=== PATIENT | male | born 1960 | race Caucasian/White ===

== ENCOUNTER 2022-10-02 10:57 | Outpatient (CLI) | payer MEDICAID, SELFPAY | END 2022-10-02 10:58 | disposition home or self-care (01) | LOC: LONREF 10:59 | PROVIDERS: PCP Family Medicine; Visit Provider Family Medicine | DX: E03.9 Hypothyroidism, unspecified (principal) | CPT/HCPCS: 84443 ==

== ENCOUNTER 2023-07-05 07:35 | Outpatient (CLI) | payer MEDICAID, SELFPAY | END 2023-07-05 07:36 | disposition home or self-care (01) | LOC: AMB 07-16 06:35 | PROVIDERS: PCP Family Medicine; Visit Provider Family Medicine | DX: R07.89 Other chest pain (principal) | CPT/HCPCS: A0425; A0427 ==

== ENCOUNTER 2024-03-07 12:08 | Outpatient (CLI) | payer MEDICAID, SELFPAY ==
--- OUTSIDE RECORDS SUMMARY | 2024-03-07 12:12 | XMS_ITS ---
Author Name Unknown Organization [facility] Address [address] [place] [id number] Care Team Providers Care Robotics Specialist Name Role Phone Clinic, [facility] Primary Care Provider Transitional Care Management Status:Enrolled (Active) Start date:03/04/2024 Enrollment date:03/04/2024 Continued Care and Services Coordination
--- OUTSIDE RECORDS SUMMARY | 2024-03-07 12:12 | XMS_ITS | Clinical Summary ---
Author Name Unknown Organization [facility] Address [address] [place] [id number] Care Team Providers Care Outside Solar Sales Consultant Name Role Phone Doctor, No Primary Care Provider Unavailabl e Clinic, No Primary Unavailable Unavailable Social History Tobacco Use Types Packs/Day Years Used Date Smoking Tobacco: Never Assessed Sex and Gender Information Value Date Recorded Sex Assigned at Not on file Gender Identity Not on file Sexual Orientation Not on file Plan of Treatment Health Maintenance Due Date Last Done Comments Colonoscopy 1962 Hepatitis C Screening 1962 Lipid Screening 1962 Anxiety Screening (ZACK-2) 1963 Depression Assessment (PHQ-2) 1963 Yearly Review of HCD 2012 Zoster Vaccine (1 of 2) 2012 Adult Tetanus Booster 05/20/2022 05/20/2012 RSV 60+ Yrs (1 - 1-dose 60+ series) 2022 COVID-19 Vaccine ( season) 2023 Influenza Vaccine (Season Ended) 2024 08/16/2020, 08/16/2020, 09/03/2019, Additional history exists Pneumococcal <65 Aged Out 08/15/2017, 05/07/2012 N o longer eligible based on patient's age to complete this topic Care Teams Outside Solar Sales Consultant Relationship Specialty Start Date End Date Doctor, No No ad PCP - General Radiology 11/01/21 Clinic, No Primary PCP - Primary Care Clinic 11/01/21
--- OUTSIDE RECORDS SUMMARY | 2024-03-07 12:12 | XMS_ITS | Encounter Summary ---
Author Name Unknown Organization [facility] Address [facility] [place] [address] Care Team Providers Care Help Desk Specialist Name Role Phone [facility], [facility] Primary Care Provider Reason for Visit * Reason Onset Date Comments Call Back 08/13/2023 Encounter Details Date Type Department Care Team ([facility] st Contact Info) Description 08/13/2023 [facility] [address] [id number] None Call Back Social History Tobacco Use Types Packs/Day Years Used Date Smoking Tobacco: Every Day Cigarettes 1 25 Alcohol Use Standard Drinks/Week Comments Yes 25 (1 standard drink = 0.6 oz pu re alcohol) 2-3 drinks a day Adolescent Education Answer Date Record ed Getting School Help Needed Not on file 07/20 Sex and Gender Information Value Date Recorded Sex Assigned at Not on file Gender Identity Not on file Sexual Orientation Not on file documented as of this encounter Miscellaneous Notes * Telephone Encounter - Esha Palacios - 08/13/2023 1:36 PM CDT [facility] Call [facility] Phone Message May a detailed message be left on voicemail: yes Reason for Call: Appointment Intake Referring Provider Name: JOAN WHELAN Diagnosis and/or Symptoms: ARDS survivorship, hx or HCAP, underling COPD, AURA, suspected OSH - Patient has 2 referrals. Both for Pulm, was seen in Hospital. Unsure how to schedule both with same provider and Not sure what ARDS is. Action Taken: Other: Pulm Travel Screening: Not Applicable documented in this encounter Plan of Treatment Not on file documented as of this encounter Visit Diagnoses Not on filedocumented in this encounter Additional Health Concerns Infection Onset Date Last Indicated Resolved Time Rule Out COVID-19 02/26/2024 02/26/2024 02/26/2024 2:06 PM CDT documented as of this encounter Care Teams Help Desk Specialist Relationship Specialty Start Date End Date [facility], [address] [address] PCP - General 03/28/17 documented as of this encounter
--- OUTSIDE RECORDS SUMMARY | 2024-03-07 12:12 | XMS_ITS | Referral Summary ---
Author Name Unknown Organization Felda Address [facility] [place] [address] Care Team Providers Care Hog Operator Name Role Phone [facility], [facility] Primary Care Provider Encounters Date Type Department Care Team Description 02/26/2024 1:00 PM CDT - 03/03/2024 1:55 PM CDT Hospital Encounter [place] [address] [facility] [address] [place] [id number] Howard Rankin MD Walker, MD Go Colon, Janee Lira MD Diuretic-induced hypokalemia (Primary Dx); Dyspnea, unspecified type; Hypoxia; COPD with acute exacerbation (H) Discharge Disposition: Home or Self Care 02/26/2024 Travel from Last 3 Months Allergies Active Allergy Reactions Criticality Noted Date Comments Cefazolin Rash High 07/14/2023 Skin sloughed off. Medications Medication Sig Dispensed Refills Start Date End Date Status levothyroxine (SYNTHROID, LEVOTHROID) 50 MCG tabletIndications: Hypothyroidism Take 1 tablet by mouth every morning (before breakfast). 90 tablet 0 05/09/2012 Active terazosin (HYTRIN) 2 MG capsule Take 2 mg by mouth At Bedtime Active gabapentin (NEURONTIN) 300 MG capsule Take 300 mg by mouth At Bedtime Active aspirin 81 MG EC tablet Take 81 mg by mouth daily Active vitamin D3 (CHOLECALCIFEROL) 50 mcg (2000 units) tablet Take 1 tablet by mouth daily Active albuterol (PROAIR HFA/PROVENTIL HFA/VENTOLIN HFA) 108 (90 Base) MCG/ACT inhalerIndications :Chronic obstructive pulmonary disease, unspecified COPD type (H) Inhale 6 puffs into the lungs every 2 hours as needed for wheezing 18 g 08/08/2023 Active sennosides (SENOKOT) 8.6 MG tabletIndications: Constipation, unspecified constipation type Take 1 tablet by mouth daily as needed for constipation 08/12/2023 Active tiotropium (SPIRIVA RESPIMAT) 2.5 MCG/ACT inhaler Inhale 1 puff into the lungs daily Active acetaminophen (TYLENOL) 325 MG tablet Take 325 mg by mouth daily Active predniSONE (DELTASONE) 20 MG tabletIndications: COPD with acute exacerbation (H) Take 2 tablets (40 mg) by mouth daily for 2 days, THEN 1.5 tablets (30 mg) daily for 3 days, THEN 1 tablet (20 mg) daily for 3 days, THEN 0.5 tablets (10 mg) daily for 3 days. 13 tablet 03/03/2024 4 Active furosemide (LASIX) 20 MG tabletIndications: COPD with acute exacerbation (H) Take 2 tablets (40 mg) by mouth daily for 7 days 14 tablet 03/03/2024 4 Active potassium chloride wilber ER (KLOR-CON M20) 20 MEQ CR tabletIndications: Diuretic-induced hypokalemia Take 1 tablet (20 mEq) by mouth daily 7 tablet 03/03/2024 Active torsemide (DEMADEX) 20 MG tabletIndications: Edema of both legs,Hypertension, unspecified type Take 1 tablet (20 mg) by mouth daily 15 tablet 08/09/2023 4 Discontinue d(Med Rec(No AVS / No eCancel)) QUEtiapine (SEROQUEL) 25 MG tabletIndications: ARDS survivor Take 0.5 tablets (12.5 mg) by mouth nightly as needed (delirium or confusion.) 4 tablet 08/12/2023 4 Discontinue d(Med Rec(No AVS / No eCancel)) tiotropium (SPIRIVA RESPIMAT) 2.5 MCG/ACT inhalerIndications :Chronic obstructive pulmonary disease, unspecified COPD type (H) Inhale 2 puffs into the lungs daily 08/12/2023 4 Discontinue d(Med Rec(No AVS / No eCancel)) Active Problems Problem Noted Date Diagnosed Date Hypoxia 02/26/2024 COPD with acute exacerbation 02/26/2024 Dyspnea, unspecified type 02/26/2024 Adult failure to thrive 08/09/2023 Weakness 08/09/2023 Acute respiratory failure with hypoxia and hyper capnia 07/05/2023 Hypotension, unspecified hypotension type 2022 Fever 05/06/2012 HTN (hypertension) 05/05/2012 Morbid obesity 05/05/2012 Alcohol abuse 05/05/2012 Edema of both legs 05/05/2012 Cellulitis of leg 05/05/2012 Gram-positive bacteremia 05/05/2012 Obstructive sleep apnea 05/05/2012 Syncope 05/04/2012 Immunizations Name Administration Dates Next Due Pneumococcal 23 valent 05/07/2012 Social History Tobacco Use Types Packs/Day Years Used Date Smoking Tobacco: Every Day Cigarettes 1 25 Tobacco Cessation:Counseling Given: Yes Alcohol Use Standard Drinks/Week Comments Yes 25 (1 standard drink = 0.6 oz pu re alcohol) 2-3 drinks a day Adolescent Education Answer Date Record ed Getting School Help Needed Not on file 07/20 Sex and Gender Information Value Date Recorded Sex Assigned at Not on file Gender Identity Not on file Sexual Orientation Not on file Last Filed Vital Signs Vital Sign Reading Time Taken Comments Blood Pressure 105/62 03/03/2024 8:47 AM CDT Pulse 81 03/03/2024 12:12 PM CDT Temperature 36.7 ??C (98 ??F) 03/03/2024 8:47 AM CDT Respiratory Rate 17 03/03/2024 12:12 PM CDT Oxygen Saturation 94% 03/03/2024 12:12 PM CDT Inhaled Oxygen Concentration - - Weight 180.1 kg (397 lb) 03/03/2024 6:31 AM CDT Height 182.9 cm (6') 02/26/2024 1:00 PM CDT Body Mass Index 53.84 02/26/2024 1:00 PM CDT Plan of Treatment Not on file Procedures Procedure Name Priority Date/Time Associated Diagnosis Comments BASIC METABOLIC PANEL STAT 03/03/2024 9:21 AM CDT CBC WITH PLATELETS STAT 03/03/2024 9: 21 AM CDT CBC WITH PLATELETS STAT 03/02/2024 9: 52 AM CDT BASIC METABOLIC PANEL STAT 03/02/2024 9:52 AM CDT D DIMER QUANTITATIVE STAT 03/01/2024 10:10 AM CDT BASIC METABOLIC PANEL Routine 03/01/2024 8:06 AM CDT BASIC METABOLIC PANEL Routine 02/29/2024 7:29 AM CDT CBC WITH PLATELETS Routine 02/29/2024 7: 29 AM CDT CBC WITH PLATELETS Routine 02/27/2024 6: 25 AM CDT BASIC METABOLIC PANEL Routine 02/27/2024 6:25 AM CDT XR CHEST 2 VIEWS STAT 02/26/2024 2:46 PM CDT US LOWER EXTREMITY VENOUS DUPLEX BILATERAL STAT 02/26/2024 2:38 PM CDT INFLUENZA A/B, RSV, & SARS-COV2 PCR STAT 02/26/2024 1:18 PM CDT CBC WITH PLATELETS & DIFFERENTIAL STAT 02/26/2024 1:17 PM CDT EXTRA HEPARINIZED SYRINGE STAT 02/26/2024 1:17 PM CDT EXTRA RED TOP TUBE STAT 02/26/2024 1: 17 PM CDT CBC WITH PLATELETS AND DIFFERENTIAL STAT 02/26/2024 1:17 PM CDT EXTRA TUBE STAT 02/26/2024 1:17 PM CDT LIPASE STAT 02/26/2024 1:17 PM CDT NT PROBNP INPATIENT STAT 02/26/2024 1 :17 PM CDT TROPONIN T, HIGH SENSITIVITY STAT 02/26/2024 1:17 PM CDT COMPREHENSIVE METABOLIC PANEL STAT 02/26/2024 1:17 PM CDT EKG 12-LEAD, TRACING ONLY STAT 02/26/2024 1:15 PM CDT TSH WITH FREE T4 REFLEX Routine 07/28/2023 8:[address] CHEST W/O CONTRAST STAT 07/13/2023 5:44 PM CDT HEMOGLOBIN A1C Add-On 07/12/2023 5:24 AM CDT PFT GENERAL LAB TESTING 06/13/2012 6:15 PM CDT from Last 3 Months or Most Recently Relevant to Health Maintenance Results * (ABNORMAL) Basic metabolic panel (03/03/2024 9:21 AM CDT) Only the most recent of5 resultswithin the time period is included. [facility] Sodium 139 135 - 145 mmol/L 03/03/2024 10:11 AM CDT LABORATORY Comment:Reference intervals for this test were updated on 07/24/2023 to more accurately reflect our healthy population. There may be differences in the flagging of prior results with similar values performed with this method. Interpretation of those prior results can be made in the context of the updated reference intervals. Potassium 4.2 3.4 - 5.3 mmol/L 03/03/2024 10:11 AM CDT [facility] Chloride 94(L) 98 - 107 mmol/L 03/03/2024 10:11 AM CDT [facility] Carbon Dioxide (CO2) 34(H) 22 - 29 mmol/L 03/03/2024 10:11 AM CDT [facility] Anion Gap 11 7 - 15 mmol/L 03/03/2024 10:11 AM CDT [facility] Urea Nitrogen 28.5(H) 8.0 - 23.0 mg/dL 03/03/2024 10:11 AM CDT [facility] Creatinine 1.01 0.67 - 1.17 mg/dL 03/03/2024 10:11 AM CDT [facility] GFR Estimate 85 >60 mL/min/1. 73m2 03/03/2024 10:11 AM CDT [facility] Calcium 9.0 8.8 - 10.2 mg/dL 03/03/2024 10:11 AM CDT [facility] Glucose 112(H) 70 - 99 mg/dL 03/03/2024 10:11 AM CDT [facility] Blood STRUCTURE OF LEFT HAND / Unknown Venipuncture / Unknown 03/03/2024 9:21 AM CDT 03/03/2024 9:57 AM CDT Kaylene Sawant MD LAB - BLOOD ORDERABL ES [facility] [address] Lab (1st floor, no room number) [place] [address] * (ABNORMAL) CBC with platelets (03/03/2024 9:21 AM CDT) Only the most recent of4 resultswithin the time period is included. WBC Count 10.9 4.0 - 11.0 10e3/uL 03/03/2024 9:52 AM CDT [facility] RBC Count 6.36(H) 4.40 - 5.90 10e6/uL 03/03/2024 9:52 AM CDT [facility] Hemoglobin 18.2(H) 13.3 - 17.7 g/dL 03/03/2024 9:52 AM CDT [facility] Hematocrit 59.6(H) 40.0 - 53.0 % 03/03/2024 9:52 AM CDT [facility] MCV 94 78 - 100 fL 03/03/2024 9:52 AM CDT [facility] MCH 28.6 26.5 - 33.0 pg 03/03/2024 9:52 AM CDT [facility] MCHC 30.5(L) 31.5 - 36.5 g/dL 03/03/2024 9:52 AM CDT [facility] RDW 16.3(H) 10.0 - 15.0 % 03/03/2024 9:52 AM CDT [facility] Platelet Count 198 150 - 450 10e3/uL 03/03/2024 9:52 AM CDT [facility] Blood STRUCTURE OF LEFT HAND / Unknown Venipuncture / Unknown 03/03/2024 9:21 AM CDT 03/03/2024 9:45 AM CDT Kaylene Sawant MD LAB - BLOOD ORDERABL ES [facility] [address] Lab (1st floor, no room number) [place] [address], [facility] * D dimer quantitative (03/01/2024 10:10 AM CDT) D-Dimer Quantitative 0.47 0.00 - 0.50 ug/mL FEU 03/01/2024 10:28 AM CDT [facility] Blood STRUCTURE OF RIGHT HAND / Unknown Venipuncture / Unknown 03/01/2024 10:10 AM CDT 03/01/2024 10:13 AM CDT Narrative [facility] - 03/01/2024 10:28 AM CDT This D-dimer assay is intended for use in conjunction with a clinical pretest probability assessment model to exclude pulmonary embolism (PE) and deep venous thrombosis (DVT) in outpatients suspected of PE or DVT. The cut-off value is 0.50 ug/mL FEU. For patients 50 years of age or older, the application of age-adjusted cut-off values for D-Dimer may increase the specificity without significant effect on sensitivity. The literature suggested calculation age adjusted cut-off in ug/L = age in years x 10 ug/L. The results in this laboratory are reported as ug/mL rather than ug/L. The calculation for age adjusted cut off in ug/mL= age in years x 0.01 ug/mL. For example, the cut off for a 76 year old male is 78 x 0.01 ug/mL = 0.76 ug/mL (760 ug/L). Dakota Graham et al. Age adjusted D-dimer cut-off levels to rule out pulmonary embolism: The ADJUST-PE Study. CAN 2014;311:1079-2257.; HJ Herve et al. Diagnostic accuracy of conventional or age adjusted D-dimer cutoff values in older patients with suspected venous thromboembolism. Systemic review and meta-analysis. BMJ 2013:346:f2492. Kaylene Sawant MD LAB - BLOOD ORDERABL ES [facility] [address] Lab (1st floor, no room number) [place] [address] * XR Chest 2 Views (02/26/2024 2:46 PM CDT) Anatomical Region Laterality Modality Chest Digital Radiogra phy Impressions 02/26/2024 2:51 PM CDT IMPRESSION: Linear opacities in the left lung base may be due to atelectasis, pulmonary edema or atypical pneumonia. No pleural effusion or pneumothorax. Stable cardiomegaly and tortuous aortic arch ROSIO LEE MD Narrative 02/26/2024 2:51 PM CDT XR CHEST 2 VIEWS 02/26/2024 2:46 PM HISTORY: dyspnea hypoxia COMPARISON: 08/09/2023 Procedure Note Rosio Lee MD - 02/26/2024 XR CHEST 2 VIEWS 02/26/2024 2:46 PM HISTORY: dyspnea hypoxia COMPARISON: 08/09/2023 IMPRESSION: Linear opacities in the left lung base may be due to atelectasis, pulmonary edema or atypical pneumonia. No pleural effusion or pneumothorax. Stable cardiomegaly and tortuous aortic arch ROSIO LEE MD Howard Rankin MD IMG DIAGNOSTIC IMAGI NG ORDERABLES * US Lower Extremity Venous Duplex Bilateral (02/26/2024 2:38 PM CDT) Anatomical Region Laterality Modality Vascular, Thigh, Leg Ultrasound Impressions 02/26/2024 2:51 PM CDT IMPRESSION: No evidence of deep venous thrombosis. HERBERTH POLLARD MD Narrative 02/26/2024 2:51 PM CDT VENOUS ULTRASOUND BOTH LEGS ??02/26/2024 2:38 PM HISTORY: leg swelling hypoxia dyspnea COMPARISON: None. FINDINGS: ??Examination of the deep veins with graded compression and color flow Doppler with spectral wave form analysis was performed. There is no evidence for deep venous or superficial venous thrombus in the lower extremities. Limited views of the calf veins due to body habitus. Procedure Note Herberth Pollard MD - 02/26/2024 VENOUS ULTRASOUND BOTH LEGS 02/26/2024 2:38 PM HISTORY: leg swelling hypoxia dyspnea COMPARISON: None. FINDINGS: Examination of the deep veins with graded compression and color flow Doppler with spectral wave form analysis was performed. There is no evidence for deep venous or superficial venous thrombus in the lower extremities. Limited views of the calf veins due to body habitus. IMPRESSION: No evidence of deep venous thrombosis. HERBERTH POLLARD MD Howard Rankin MD [facility] ORDERABLES * Symptomatic Influenza A/B, RSV, & SARS-CoV2 PCR (COVID-19) Nasopharyngeal (02/26/2024 1:18 PM CDT) [facility] Influenza A PCR Negative Negative 02/26/2024 2:06 PM CDT LABORATORY Influenza B PCR Negative Negative 02/26/2024 2:06 PM CDT LABORATORY RSV PCR Negative Negative 02/26/2024 2:06 PM CDT LABORATORY SARS CoV2 PCR Negative Negative 02/26/2024 2:06 PM CDT LABORATORY Comment:NEGATIVE: SARS-CoV-2 (COVID-19) RNA not detected, presumed negative. Swab NASOPHARYNGEAL STRUCTURE / Unknown Non-blood Collection / Unknown 02/26/2024 1:18 PM CDT 02/26/2024 1:22 PM CDT [facility] LABORATORY - 02/26/2024 2:06 PM CDT Testing was performed using the Xpert Xpress CoV2/Flu/RSV Assay on the [employer] GeneXpert Instrument. This test should be ordered for the detection of SARS-CoV-2, influenza, and RSV viruses in individuals who meet clinical and/or epidemiological criteria. Test performance is unknown in asymptomatic patients. This test is for in vitro diagnostic use under the FDA EUA for laboratories certified under CLIA to perform high or moderate complexity testing. This test has not been FDA cleared or approved. A negative result does not rule out the presence of PCR inhibitors in the specimen or target RNA in concentration below the limit of detection for the assay. If only one viral target is positive but coinfection with multiple targets is suspected, the sample should be re-tested with another FDA cleared, approved, or authorized test, if coinfection would change clinical management. This test was validated by the [facility]. These laboratories are certified under the Clinical Laboratory Improvement Amendments of 1988 (CLIA-88) as qualified to perform high complexity laboratory testing. Howard Rankin MD LAB - MICRO GENERAL ORDERABLES Performing Organization Address City/[facility]/ZIP Co de Phone Number [facility] Lab [address] [facility] Lab (1st floor, no room number) [place] [address] * Extra Heparinized Syringe (02/26/2024 1:17 PM CDT) Hold Specimen [facility] 02/26/2024 2:31 PM CDT LABORATORY Blood, venous VENOUS LINE / Unknown Venipuncture / Unknown 02/26/2024 1:17 PM CDT 02/26/2024 1:22 PM CDT Howard Rankin MD LAB - BLOOD ORDERABL ES Performing Organization Address City/[facility]/ZIP Co de Phone Number [facility] [address] Lab (1st floor, no room number) [place] [address] * Extra Red Top Tube (02/26/2024 1:17 PM CDT) Hold Specimen [facility] 02/26/2024 2:31 PM CDT LABORATORY Blood VENOUS LINE / Unknown Venipuncture / Unknown 02/26/2024 1:17 PM CDT 02/26/2024 1:23 PM CDT Howard Rankin MD LAB - BLOOD ORDERABL ES [facility] Lab [address] Lab (1st floor, no room number) [place] [address], [facility] * (ABNORMAL) CBC with platelets and differential (02/26/2024 1:17 PM CDT) WBC Count 8.7 4.0 - 11.0 10e3/uL 02/26/2024 1:35 PM CDT [facility] RBC Count 6.29(H) 4.40 - 5.90 10e6/uL 02/26/2024 1:35 PM CDT [facility] Hemoglobin 18.2(H) 13.3 - 17.7 g/dL 02/26/2024 1:35 PM CDT [facility] Hematocrit 58.6(H) 40.0 - 53.0 % 02/26/2024 1:35 PM CDT [facility] MCV 93 78 - 100 fL 02/26/2024 1:35 PM CDT [facility] MCH 28.9 26.5 - 33.0 pg 02/26/2024 1:35 PM CDT [facility] MCHC 31.1(L) 31.5 - 36.5 g/dL 02/26/2024 1:35 PM CDT [facility] RDW 17.2(H) 10.0 - 15.0 % 02/26/2024 1:35 PM CDT [facility] Platelet Count 208 150 - 450 10e3/uL 02/26/2024 1:35 PM CDT [facility] % Neutrophils 77 % 02/26/2024 1:35 PM CDT [facility] % Lymphocytes 10 % 02/26/2024 1:35 PM CDT [facility] % Monocytes 11 % 02/26/2024 1:35 PM CDT [facility] % Eosinophils 1 % 02/26/2024 1:35 PM CDT [facility] % Basophils 1 % 02/26/2024 1:35 PM CDT [facility] % Immature Granulocytes 0 % 02/26/2024 1:35 PM CDT [facility] NRBCs per 100 WBC 0 <1 /100 024 1:35 PM CDT [facility] Absolute Neutrophils 6.8 1.6 - 8.3 10e3/uL 02/26/2024 1:35 PM CDT [facility] Absolute Lymphocytes 0.9 0.8 - 5.3 10e3/uL 02/26/2024 1:35 PM CDT [facility] Absolute Monocytes 0.9 0.0 - 1.3 10e3/uL 02/26/2024 1:35 PM CDT [facility] Absolute Eosinophils 0.1 0.0 - 0.7 10e3/uL 02/26/2024 1:35 PM CDT [facility] Absolute Basophils 0.1 0.0 - 0.2 10e3/uL 02/26/2024 1:35 PM CDT [facility] Absolute Immature Granulocytes 0.0 <=0.4 10e3/uL 02/26/2024 1:35 PM CDT [facility] Absolute NRBCs 0.0 10e3/uL 02/26/2024 1:35 PM CDT [facility] Blood VENOUS LINE / Unknown Venipuncture / Unknown 02/26/2024 1:17 PM CDT 02/26/2024 1:23 PM CDT Howard Rankin MD LAB - BLOOD ORDERABL ES LABORATORY [facility] Lab [address] Lab (1st floor, no room number) [place] [address] * Troponin T, High Sensitivity (02/26/2024 1:17 PM CDT) [facility] Troponin T, High Sensitivity 11 <=22 ng/L 02/26/2024 1:54 PM CDT [facility] Comment: Either a High Sensitivity Troponin T baseline (0 hours) value = 100 ng/L, or an increase in High Sensitivity Troponin T = 7 ng/L at 2 hours compared to 0 hours (2-0 hours), suggests myocardial injury, and urgent clinical attention is required. ?? If the 2-0 hours increase is <7 ng/L, a High Sensitivity Troponin T result above gender-specific reference ranges warrants further evaluation. Recommendations for further evaluation include correlation with clinical decision-making tool (e.g., HEART), a 3rd High Sensitivity Troponin T test 2 hours after the 2nd (a 20% change from baseline would represent concern), admission for observation, close PCC/cardiology follow-up, or urgent outpatient provocative testing. Blood VENOUS LINE / Unknown Venipuncture / Unknown 02/26/2024 1:17 PM CDT 02/26/2024 1:23 PM CDT Howard Rankin MD LAB - BLOOD ORDERABL ES Performing Organization Address [facility]/ZIP Co de Phone Number [facility] [address] Lab (1st floor, no room number) [place] [id number] * Nt probnp inpatient (BNP) (02/26/2024 1:17 PM CDT) N terminal Pro BNP Inpatient 129 0 - 900 pg/mL 02/26/2024 1:54 PM CDT LABORATORY Comment: Reference range shown and results flagged as abnormal are suggested inpatient cut points for confirming diagnosis if CHF in an acute setting. Establishing a baseline value for each individual patient is useful for follow-up. An inpatient or emergency department NT-proPBNP <300 pg/mL effectively rules out acute CHF, with 99% negative predictive value. The outpatient non-acute reference range for ruling out CHF is: 0-125 pg/mL (age 18 to less than 75) 0-450 pg/mL (age 75 yrs and older) Blood VENOUS LINE / Unknown Venipuncture / Unknown 02/26/2024 1:17 PM CDT 02/26/2024 1:23 PM CDT Howard Rankin MD LAB - BLOOD ORDERABL ES Performing Organization Address [facility]/ZIP Co de Phone Number [facility] [address] Lab (1st floor, no room number) [place] [address] * Lipase (02/26/2024 1:17 PM CDT) Lipase 13 13 - 60 U/L 02/26/2024 1:48 PM CDT LABORATORY Blood VENOUS LINE / Unknown Venipuncture / Unknown 02/26/2024 1:17 PM CDT 02/26/2024 1:23 PM CDT Howard Rankin MD LAB - BLOOD ORDERABL ES [facility] Lab [address] Lab (1st floor, no room number) [place] [address], [facility] * (ABNORMAL) Comprehensive metabolic panel (02/26/2024 1:17 PM CDT) [facility] Sodium 139 135 - 145 mmol/L 02/26/2024 1:48 PM CDT [facility] Comment:Reference intervals for this test were updated on 07/24/2023 to more accurately reflect our healthy population. There may be differences in the flagging of prior results with similar values performed with this method. Interpretation of those prior results can be made in the context of the updated reference intervals. Potassium 4.5 3.4 - 5.3 mmol/L 02/26/2024 1:48 PM CDT LABORATORY Carbon Dioxide (CO2) 32(H) 22 - 29 mmol/L 02/26/2024 1:48 PM CDT [facility] Anion Gap 8 7 - 15 mmol/L 02/26/2024 1:48 PM CDT [facility] Urea Nitrogen 17.2 8.0 - 23.0 mg/dL 02/26/2024 1:48 PM CDT [facility] Creatinine 0.90 0.67 - 1.17 mg/dL 02/26/2024 1:48 PM CDT [facility] GFR Estimate >90 >60 mL/min/1. 73m2 02/26/2024 1:48 PM CDT [facility] Calcium 9.4 8.8 - 10.2 mg/dL 02/26/2024 1:48 PM CDT [facility] Chloride 99 98 - 107 mmol/L 02/26/2024 1:48 PM CDT [facility] Glucose 100(H) 70 - 99 mg/dL 02/26/2024 1:48 PM CDT [facility] Alkaline Phosphatase 90 40 - 150 U/L 02/26/2024 1:48 PM CDT [facility] Comment:Reference intervals for this test were updated on 09/11/2023 to more accurately reflect our healthy population. There may be differences in the flagging of prior results with similar values performed with this method. Interpretation of those prior results can be made in the context of the updated reference intervals. AST 15 0 - 45 U/L 02/26/2024 1:48 PM CDT [facility] Comment:Reference intervals for this test were updated on 04/09/2023 to more accurately reflect our healthy population. There may be differences in the flagging of prior results with similar values performed with this method. Interpretation of those prior results can be made in the context of the updated reference intervals. ALT 14 0 - 70 U/L 02/26/2024 1:48 PM CDT [facility] Comment:Reference intervals for this test were updated on 04/09/2023 to more accurately reflect our healthy population. There may be differences in the flagging of prior results with similar values performed with this method. Interpretation of those prior results can be made in the context of the updated reference intervals. Protein Total 7.7 6.4 - 8.3 g/dL 02/26/2024 1:48 PM CDT [facility] Albumin 3.8 3.5 - 5.2 g/dL 02/26/2024 1:48 PM CDT [facility] Bilirubin Total 2.2(H) <=1.2 mg/dL 02/26/2024 1:48 PM CDT [facility] Blood VENOUS LINE / Unknown Venipuncture / Unknown 02/26/2024 1:17 PM CDT 02/26/2024 1:23 PM CDT Howard Rankin MD LAB - BLOOD ORDERABL ES LABORATORY [facility] Lab [address] Lab (1st floor, no room number) [place] [address], [facility] * EKG 12-lead, tracing only (02/26/2024 1:15 PM CDT) Systolic Blood Pressure mmHg RADIOLOGY RESULTS Diastolic Blood Pressure mmHg RADIOLOGY RESULTS Ventricular Rate 98 BPM RAD IOLOGY RESULTS Atrial Rate 98 BPM RADIOLOG Y RESULTS CT Interval 146 ms RADIOLOG Y RESULTS QRS Duration 86 ms RADIOLO GY RESULTS QT 340 ms RADIOLOGY RESULTS QTc 434 ms RADIOLOGY RESULTS P [place] 61 degrees RADIOLOGY RESULTS R AXIS 69 degrees RADIOLOGY RESULTS T [place] 48 degrees RADIOLOGY RESULTS Interpretation ECG Sinus rhythm Normal ECG When compared with ECG of 13-JUL-2023 14:46, T wave inversion no longer evident in Inferior leads Nonspecific T wave abnormality no longer evident in Lateral leads Confirmed by - EMERGENCY ROOM, PHYSICIAN ([id number]), deputy editor in chief LOCO WINTER [id number]) on 02/26/2024 2:02:07 PM RADIOLOGY RESULTS 02/26/2024 1:15 PM CDT 02/26/2024 2:02 PM CDT Howard Rankin MD ECG ORDERABLES RADIOLOGY RESULTS * TSH with free T4 reflex (07/28/2023 8:43 AM CDT) TSH 1.88 0.30 - 4.20 uIU/mL 07/28/2023 9:17 AM CDT [facility] Blood VENOUS LINE / Unknown VAD(CVC, PICC) / Unknown 07/28/2023 8:43 AM CDT 07/28/2023 8:48 AM CDT Rusty Cortés DO LAB - BLOOD ORDERABL ES LABORATORY [facility] Lab [address] Lab (1st floor, no room number) [place] [address], [facility] [phone] * CT Chest w/o Contrast (07/13/2023 5:44 PM CDT) Anatomical Region Laterality Modality Chest, SUBRAD CT BODY, UMP CT CHEST, RAD CT Computed Tomography 07/13/2023 5:44 PM CDT Impressions 07/13/2023 6:10 PM CDT IMPRESSION: 1. ??No pneumomediastinum or pneumothorax. 2. ??Progressive right middle and right upper lobe partial collapse, with additional bilateral patchy groundglass opacities, likely infectious/inflammatory. Unchanged complete right lower lobe and partial left lower lobe collapse. 3. ??Small right and tiny left pleural effusions. 4. ??Mild right hilar lymphadenopathy, likely reactive. 5. ??Hepatic steatosis. Narrative 07/13/2023 6:10 PM CDT EXAM: CT CHEST W/O CONTRAST LOCATION: [facility] DATE: 07/13/2023 INDICATION: Worsening respiratory status; possible pneumomediastinum on same day chest radiograph. COMPARISON: Same day chest radiograph; CT chest on 2022. TECHNIQUE: CT chest without IV contrast. Multiplanar reformats were obtained. Dose reduction techniques were used. CONTRAST: None. FINDINGS: Absence of intravenous contrast limits the sensitivity of this examination for detection of infectious/inflammatory change, post traumatic abnormalities, vascular abnormalities, and visceral lesions. LUNGS AND PLEURA: Endotracheal tube tip terminates within the midthoracic trachea. There is prominent debris within the bronchus intermedius and distal bronchial branches. Persistent collapse of the right lower lobe and partial collapse of the left lower lobe. Increasing partial collapse of the right upper and right middle lobes. Mild bilateral patchy groundglass opacities, likely infectious/inflammatory and greatest within the right upper lobe. No suspicious pulmonary nodule. No pneumothorax. Small right and tiny left pleural effusions. MEDIASTINUM/AXILLAE: Mild right paratracheal lymphadenopathy, likely reactive. No pneumomediastinum. Thoracic esophagus is unremarkable. ?? No axillary lymphadenopathy. Bilateral gynecomastia. No thoracic aortic aneurysm. Mild atherosclerotic calcifications. Heart is normal in size. No pericardial effusion. CORONARY ARTERY CALCIFICATION: Severe. UPPER ABDOMEN: Hepatic steatosis. Enteric suction tube tip terminates inferiorly beyond the fswzn-wu-tmus within the gastric body. MUSCULOSKELETAL: No suspicious abnormality. OTHER: No additionally suspicious abnormality. Procedure Note Fernando Quiñonez MD - 07/13/2023 EXAM: CT CHEST W/O CONTRAST LOCATION: [facility] DATE: 07/13/2023 INDICATION: Worsening respiratory status; possible pneumomediastinum onsame day chest radiograph. COMPARISON: Same day chest radiograph; CT chest on 2022. TECHNIQUE: CT chest without IV contrast. Multiplanar reformats wereobtained. Dose reduction techniques were used. CONTRAST: None. FINDINGS: Absence of intravenous contrast limits the sensitivity of thisexamination for detection of infectious/inflammatory change, posttraumatic abnormalities, vascular abnormalities, and visceral lesions. LUNGS AND PLEURA: Endotracheal tube tip terminates within the midthoracictrachea. There is prominent debris within the bronchus intermedius anddistal bronchial branches. Persistent collapse of the right lower lobe andpartial collapse of the left lower lobe. Increasing partial collapse of the right upper and right middlelobes. Mild bilateral patchy groundglass opacities, likelyinfectious/inflammatory and greatest within the right upper lobe. No suspicious pulmonary nodule. No pneumothorax. Small right and tiny left pleural effusions. MEDIASTINUM/AXILLAE: Mild right paratracheal lymphadenopathy, likelyreactive. No pneumomediastinum. Thoracic esophagus is unremarkable. No axillary lymphadenopathy. Bilateral gynecomastia. No thoracic aortic aneurysm. Mild atherosclerotic calcifications. Heart is normal in size. No pericardial effusion. CORONARY ARTERY CALCIFICATION: Severe. UPPER ABDOMEN: Hepatic steatosis. Enteric suction tube tip terminatesinferiorly beyond the [id number]-[id number]-extz within the gastric body. MUSCULOSKELETAL: No suspicious abnormality. OTHER: No additionally suspicious abnormality. IMPRESSION: 1. No pneumomediastinum or pneumothorax. 2. Progressive right middle and right upper lobe partial collapse, withadditional bilateral patchy groundglass opacities, likelyinfectious/inflammatory. Unchanged complete right lower lobe and partialleft lower lobe collapse. 3. Small right and tiny left pleural effusions. 4. Mild right hilar lymphadenopathy, likely reactive. 5. Hepatic steatosis. Bay Perez MD [facility] CT ORDER SHRUTHI * (ABNORMAL) Hemoglobin A1c (07/12/2023 5:24 AM CDT) Hemoglobin A1C 5.9(H) <5.7 % 07/12/2023 2:34 PM CDT LABORATORY Comment: Normal <5.7% Prediabetes 5.7-6.4% ?? Diabetes 6.5% or higher Note: Adopted from ADA consensus guidelines. Blood ARTERIAL LINE / Unknown Arterial Line / Unknown 07/12/2023 5:24 AM CDT 07/12/2023 5:33 AM CDT Bay Perez MD LAB - BLOOD ORDERABLES LABORATORY [facility] [address] [facility], no room number) [place] [address] [phone] * PULMONARY FUNCTION TEST (06/13/2012 6:15 PM CDT) Narrative Transcriptions Virginia Orona MD - 05/09/2012 8:49 AM CDT Interpretation of Nocturnal Recording Oximetry for study night of:05/06/2012 Study running from 22:01 to 04:06 (See attached graphics in paper chart) This study was: 1. On 4 liters of FI02 by nasal cannula 2. Abnormal study Findings Include: 1. Bradycardia 2. Tachycardia 3. Heart rate 31-109, mean 76 bpm 4. Multiple desaturations below 90% 5. Repetitive and suggestive of Sleep Disordered Breathing 6. Awake sats were documented: 96% on 4 liters awake 7. Asleep sats were documented: 60% on 4 liters asleep Suggested Follow-Up: 1. Clinical correlation 2. Schedule Outpatient Sleep Study Other: Severely abnormal study with constant repetitive desaturations andbrady-tachycardia strongly suggestive of severe sleep disorderedbreathing. Clinical correlation is advised. VIRGINIA ORONA MD MT: Name: JAN HUDDLESTON MRN: [id number] Account: [id number] : 1960 Procedure Date: 05/06/2012 Document: [id number] Virginia Orona MD PFT ORDERABLES from Last 3 Months or Most Recently Relevant to Health Maintenance Advance Directives For more information, please contact: [phone] * Full Code (Latest Code Status on File) Date Activated Date Inactivated Comments 02/26/2024 3:53 PM 03/03/2024 4:01 PM All basic and advanced life-sustaining interventions are performed as appropriate Question Answer Comments Code status determined by: Discussion with patie nt/ legal decision maker * Full Code Date Activated Date Inactivated Comments 08/09/2023 12:20 AM 08/12/2023 3:09 PM All basic and advanced life-sustaining interventions are performed as appropriate Question Answer Comments Code status determined by: Discussion with patie nt/ legal decision maker * Full Code Date Activated Date Inactivated Comments 07/27/2023 9:15 AM 08/08/2023 6:45 PM All basic a nd advanced life-sustaining interventions are performed as appropriate Question Answer Comments Code status determined by: Discussion with patie nt/ legal decision maker * Full Code Date Activated Date Inactivated Comments 07/05/2023 2:17 PM 07/27/2023 9:15 AM All basic and advanced life-sustaining interventions are performed as appropriate Question Answer Comments Code status determined by: Discussion with patie nt/ legal decision maker * Full Code Date Activated Date Inactivated Comments 05/09/2012 10:12 AM 07/05/2023 8:06 AM Care Teams Hog Operator Relationship Specialty Start Date End Date [facility], [facility] [address] [place] [address] PCP - General 03/28/17
--- OUTSIDE RECORDS SUMMARY | 2024-03-07 12:12 | XMS_ITS | Referral Summary ---
Author Name Unknown Organization [facility] Address [address] [place] [address] Care Team Providers Care Parking Attendant Name Role Phone Doctor, No Primary Care Provider Unavailabl e Clinic, No Primary Unavailable Unavailable Social History Tobacco Use Types Packs/Day Years Used Date Smoking Tobacco: Never Assessed Sex and Gender Information Value Date Recorded Sex Assigned at Not on file Gender Identity Not on file Sexual Orientation Not on file Plan of Treatment Not on file Care Teams Parking Attendant Relationship Specialty Start Date End Date Doctor, No No ad PCP - General Radiology 11/01/21 Clinic, No Primary PCP - Primary Care Clinic 11/01/21
--- OUTSIDE RECORDS SUMMARY | 2024-03-07 12:12 | XMS_ITS | Encounter Summary ---
Author Name Unknown Organization [facility] Address [address] [place] [address] Care Team Providers Care Acute Care Nurse Name Role Phone [facility] Primary Care Provider Encounter Details Date Type Department Care Team (Latest Contact Info) Description 02/26/2024 Travel Social History Tobacco Use Types Packs/Day Years [...] on file documented as of this encounter Plan of Treatment Not on file documented as of this encounter Visit Diagnoses Not on filedocumented in this encounter Additional Health Concerns Infection Onset Date Last Indicated Resolved Time Rule Out COVID-19 02/26/2024 02/26/2024 02/26/2024 2:06 PM CDT documented as of this encounter Care Teams Acute Care Nurse Relationship Specialty Start Date End Date [facility] [address] [place] [address] PCP - General 03/28/17 documented as of this encounter
--- OUTSIDE RECORDS SUMMARY | 2024-03-07 12:12 | XMS_ITS ---
Author Name Unknown Organization Unknown Patient Care team information Name Category Status Period Participants - - Proposed period not known -
--- OUTSIDE RECORDS SUMMARY | 2024-03-07 12:12 | XMS_ITS | Clinical Summary ---
Author Name Unknown Organization [facility] Address [facility] [place] [address] Care Team Providers Care Heel Curver Name Role Phone [facility], [facility] Primary Care Provider Allergies Active Allergy Reactions Criticality Noted Date [...] 05/05/2012 Obstructive sleep apnea 05/05/2012 Syncope 05/04/2012 Encounters Date Type Department Care Team Description 02/26/2024 1:00 PM CDT - 03/03/2024 1:55 PM CDT Hospital Encounter [place] [address] [facility] [address] [place] [address] Howard Rankin MD Walker, MD Go Colon, Janee Lira MD Diuretic-induced hypokalemia (Primary Dx); Dyspnea, unspecified type; Hypoxia; COPD with acute exacerbation (H) Discharge Disposition: Home or Self Care 02/26/2024 Travel from Last 3 Months Immunizations Name Administration Dates Next Due Pneumococcal 23 valent 05/07/2012 Family History Medical History Relation Comments Myocardial Infarction Father at ag e 52 from [place] per sister Gloria Diabetes Type 2 Mother Per sister, Gloria - 10 to 15 years ago of renal failure after refusing dialysis Kidney failure Mother Relation Status Comments Father Mother Social History Tobacco Use Types Packs/Day Years [...] 02/26/2024 1:00 PM CDT Plan of Treatment Health Maintenance Due Date Last Done Comments ADVANCE CARE PLANNING 1960 ANNUAL REVIEW OF HM ORDERS 1962 COPD ACTION PLAN 1962 CT COLONOGRAPHY 1962 DIABETIC FOOT EXAM 1962 EYE EXAM 1962 FIT 1962 FLEX SIG 1962 LIPID 1962 MICROALBUMIN 1962 NICOTINE/TOBACCO CESSATION COUNSELING Q 1 YR 1962 YEARLY PREVENTIVE VISIT 1962 sDNA (Cologuard) 1962 COLONOSCOPY 1972 COLORECTAL CANCER SCREENING 1972 HIV SCREENING 1977 HEPATITIS C SCREENING 1980 ZOSTER IMMUNIZATION (1 of 2) 2012 Pneumococcal Vaccine: Pediatrics (0 to 5 Years) and At-Risk Patients (6 to 64 Years) (2 of 2 - PCV) 08/15/2018 08/15/2017, 05/07/2012 RSV VACCINE ( & 60+) (1 - 1-dose 60+ series) 2022 COVID-19 Vaccine ( - season) 2023 08/29/2022, 01/17/2022, 12/21/2021 A1C 10/11/2023 07/12/2023, 12/21/2021 PHQ-2 (once per calendar year) 2023 INFLUENZA VACCINE (Season Ended) 2024 10/02/2022, 08/16/2020, 09/03/2019, Additional history exists LUNG CANCER SCREENING 07/13/2024 07/13/2023 , 07/09/2023, 07/05/2023 TSH W/FREE T4 REFLEX 07/28/2024 07/28/2023, 07/10/2023, 07/05/2023, Additional history exists BMP 03/03/2025 03/03/2024, 05/0 02/2024, 03/01/2024, Additional history exists DTAP/TDAP/TD IMMUNIZATION (3 - Td or Tdap) 10/02/2032 10/02/2022, 05/20/2012 SPIROMETRY Completed 06/13/2012 HPV IMMUNIZATION Aged Out No longer e ligible based on patient's age to complete this topic IPV IMMUNIZATION Aged Out No longer e ligible based on patient's age to complete this topic MENINGITIS IMMUNIZATION Aged Out No l onger eligible based on patient's age to complete this topic RSV MONOCLONAL ANTIBODY Aged Out No l onger eligible based on patient's age to complete this topic Procedures Procedure Name Priority Date/Time Associated Diagnosis [...] of5 resultswithin the time period is included. [facility] Sodium 139 135 - 145 mmol/L 03/03/2024 10:11 AM CDT [facility] Comment:Reference intervals for this test were updated on 07/24/2023 to more accurately reflect our healthy population. There may be differences in the flagging of prior results with similar values performed with this method. Interpretation of those prior results can be made in the context of the updated reference intervals. Potassium 4.2 3.4 - 5.3 mmol/L 03/03/2024 10:11 AM CDT LABORATORY Chloride 94(L) 98 - 107 mmol/L 03/03/2024 10:11 AM CDT LABORATORY Carbon Dioxide (CO2) 34(H) 22 - 29 mmol/L 03/03/2024 10:11 AM CDT LABORATORY Anion Gap 11 7 - 15 mmol/L 03/03/2024 10:11 AM CDT LABORATORY Urea Nitrogen 28.5(H) 8.0 - 23.0 mg/dL 03/03/2024 10:11 AM CDT LABORATORY Creatinine 1.01 0.67 - 1.17 mg/dL 03/03/2024 10:11 AM CDT LABORATORY GFR Estimate 85 >60 mL/min/1. 73m2 03/03/2024 10:11 AM CDT LABORATORY Calcium 9.0 8.8 - 10.2 mg/dL 03/03/2024 10:11 AM CDT LABORATORY Glucose 112(H) 70 - 99 mg/dL 03/03/2024 10:11 AM CDT LABORATORY Blood STRUCTURE OF LEFT HAND / Unknown Venipuncture / Unknown 03/03/2024 9:21 AM CDT 03/03/2024 9:57 AM CDT Kaylene Sawant MD LAB - BLOOD ORDERABL ES LABORATORY [facility] Acute [facility] Lab [address] [facility] Lab (1st floor, no room number) [place] [address], [facility] * (ABNORMAL) CBC with platelets (03/03/2024 9:21 AM CDT) Only the most recent of4 resultswithin the time period is included. WBC Count 10.9 4.0 - 11.0 10e3/uL 03/03/2024 9:52 AM CDT LABORATORY RBC Count 6.36(H) 4.40 - 5.90 10e6/uL 03/03/2024 9:52 AM CDT LABORATORY Hemoglobin 18.2(H) 13.3 - 17.7 g/dL 03/03/2024 9:52 AM CDT LABORATORY Hematocrit 59.6(H) 40.0 - 53.0 % [...] LAB - BLOOD ORDERABL ES RH LABORATORY [facility] Lab [address] [facility] Lab (1st floor, no room number) [place] [address], [facility] * D dimer quantitative (03/01/2024 10:10 AM CDT) Pathologist [facility] D-Dimer Quantitative 0.47 0.00 - 0.50 ug/mL [...] 0.01 ug/mL = 0.76 ug/mL (760 ug/L). M Gladys et al. Age adjusted D-dimer cut-off levels to rule out pulmonary embolism: The ADJUST-PE Study. CAN 2014;311:5055-9172.; HJ Herve et al. Diagnostic accuracy of conventional or age adjusted D-dimer cutoff values in older patients with suspected venous thromboembolism. Systemic review and meta-analysis. BMJ 2013:346:f2492. Kaylene Sawant MD LAB - BLOOD ORDERABL ES [facility] Acute Care Lab [address] [facility] [facility] Lab (1st floor, no room number) [place] [address] * XR Chest 2 Views (02/26/2024 2:46 [...] arch ROSIO LEE MD Howard Rankin MD [facility] DIAGNOSTIC IMAGI NG ORDERABLES * US Lower [...] thrombosis. HERBERTH POLLARD MD Howard Rankin MD [facility] US ORDERABLES * Symptomatic Influenza A/B, RSV, & SARS-CoV2 PCR (COVID-19) Nasopharyngeal (02/26/2024 1:18 PM CDT) Pathologist [facility] Influenza A PCR Negative Negative 02/26/2024 2:06 PM CDT [facility] LAB[facility] Influenza B PCR Negative Negative 02/26/2024 2:06 PM CDT [facility] RSV PCR Negative Negative 02/26/2024 2:06 PM CDT [facility] SARS CoV2 PCR Negative Negative 02/26/2024 2:06 PM CDT [facility] Comment:NEGATIVE: SARS-CoV-2 (COVID-19) RNA not detected, presumed negative. Swab NASOPHARYNGEAL STRUCTURE / Unknown Non-blood Collection / Unknown 02/26/2024 1:18 PM CDT 02/26/2024 1:22 PM CDT Narrative LABORATORY - 02/26/2024 2:06 PM CDT Testing was performed using the Xpert Xpress CoV2/Flu/RSV Assay on the [employer] GeneXpert Instrument. This test should be ordered [...] management. This test was validated by the [facility] [employer]. These laboratories are certified under the Clinical Laboratory Improvement Amendments of 1988 (CLIA-88) as qualified to perform high complexity laboratory testing. Howard Rankin MD LAB - MICRO GENERAL ORDERABLES Performing Organization Address City/[facility]/ZIP Co de Phone Number [facility] Care Lab [address] Lab (1st floor, no room number) [place] [address], [facility] * Extra Heparinized Syringe (02/26/2024 1:17 PM CDT) Pathologist [facility] Hold Specimen [facility] 02/26/2024 2:31 PM CDT LABORATORY Blood, venous VENOUS LINE / Unknown Venipuncture / Unknown 02/26/2024 1:17 PM CDT 02/26/2024 1:22 PM CDT Howard Rankin MD LAB - BLOOD ORDERABL ES Performing Organization Address City/[facility]/ZIP Co de Phone Number [facility] Care Lab [address] [employer] Lab (1st floor, no room number) [place] [address] * Extra Red Top Tube (02/26/2024 1:17 PM CDT) Hold Specimen [facility] 02/26/2024 2:31 PM CDT [facility] LAB[facility] Blood VENOUS LINE / Unknown Venipuncture / Unknown 02/26/2024 1:17 PM CDT 02/26/2024 1:23 PM CDT Howard Rankin MD LAB - BLOOD ORDERABL ES [facility] LABORATORY [facility] Lab [address] Lab (1st floor, no room number) [place] [address] * (ABNORMAL) CBC with platelets and differential [...] LAB - BLOOD ORDERABL ES RH LABORATORY [facility] Lab [address] [facility] Lab (1st floor, no room number) [place] [address], [facility] * Troponin T, High Sensitivity (02/26/2024 1:17 PM CDT) Pathologist [facility] Troponin T, High Sensitivity 11 <=22 ng/L [...] - BLOOD ORDERABL ES Performing Organization Address [facility]/ZIP Co de Phone Number [facility] Care Lab [address] Lab (1st floor, no room number) [place] [address] * Nt probnp inpatient (BNP) (02/26/2024 1:17 PM CDT) [facility] N terminal Pro BNP Inpatient 129 0 [...] - BLOOD ORDERABL ES Performing Organization Address City/[facility]/ZIP Co de Phone Number [facility] LAB[facility]AT[facility] Acute Care Lab [address] Lab (1st floor, no room number) [place] [address] * Lipase (02/26/2024 1:17 PM CDT) Lipase 13 13 - 60 U/L 02/26/2024 1:48 PM CDT [facility] LAB[facility] Blood VENOUS LINE / Unknown Venipuncture / Unknown 02/26/2024 1:17 PM CDT 02/26/2024 1:23 PM CDT Howard Rankin MD LAB - BLOOD ORDERABL ES [facility] Care Lab [address] Lab (1st floor, no room number) [place] [address] * (ABNORMAL) Comprehensive metabolic panel (02/26/2024 1:17 PM CDT) Pathologist [facility] Sodium 139 135 - 145 mmol/L 02/26/2024 [...] - 5.3 mmol/L 02/26/2024 1:48 PM CDT [facility] Carbon Dioxide (CO2) 32(H) 22 - [...] LAB - BLOOD ORDERABL ES [facility] LABORATORY [facility] Lab [address] [facility] Lab (1st floor, no room number) [place] [address], [facility] * EKG 12-lead, tracing only (02/26/2024 1:15 PM CDT) Systolic Blood Pressure mmHg RADIOLOGY RESULTS Diastolic Blood Pressure mmHg RADIOLOGY RESULTS Ventricular Rate 98 BPM RAD IOLOGY RESULTS Atrial Rate 98 BPM RADIOLOG Y RESULTS NV Interval 146 ms RADIOLOG Y RESULTS QRS Duration 86 ms RADIOLO GY RESULTS QT 340 ms RADIOLOGY RESULTS QTc 434 ms RADIOLOGY RESULTS P [place] 61 degrees RADIOLOGY RESULTS R AXIS 69 degrees RADIOLOGY RESULTS T [place] 48 degrees RADIOLOGY RESULTS Interpretation ECG Sinus rhythm Normal ECG When compared with ECG of 13-JUL-2023 14:46, T wave inversion no longer evident in Inferior leads Nonspecific T wave abnormality no longer evident in Lateral leads Confirmed by - EMERGENCY ROOM, PHYSICIAN ([id number]), research editor LOCO WINTER ([id number]) on 02/26/2024 2:02:07 PM RADIOLOGY RESULTS 02/26/2024 [...] Cortés DO LAB - BLOOD ORDERABL ES [facility] LABORATORY [facility] Lab [address] Lab (1st floor, no room number) [place] [address], [facility] [phone] * CT Chest w/o Contrast (07/13/2023 5:44 [...] CDT EXAM: CT CHEST W/O CONTRAST LOCATION: [facility] DATE: 07/13/2023 INDICATION: Worsening respiratory status; possible [...] suction tube tip terminates inferiorly beyond the [id number] within the gastric body. MUSCULOSKELETAL: No suspicious abnormality. OTHER: No additionally suspicious abnormality. Procedure Note Fernando Quiñonez MD - 07/13/2023 EXAM: CT CHEST W/O CONTRAST LOCATION: [facility] DATE: 07/13/2023 INDICATION: Worsening respiratory status; possible [...] Enteric suction tube tip terminatesinferiorly beyond the [id number]-tx-kmpa within the gastric body. MUSCULOSKELETAL: No suspicious [...] reactive. 5. Hepatic steatosis. Bay Perez MD IM CT ORDER SHRUTHI * (ABNORMAL) Hemoglobin A1c (07/12/2023 5:24 AM CDT) Hemoglobin A1C 5.9(H) <5.7 % 07/12/2023 2:34 PM CDT [facility] Comment: Normal <5.7% Prediabetes 5.7-6.4% ?? Diabetes 6.5% or higher Note: Adopted from ADA consensus guidelines. Blood ARTERIAL LINE / Unknown Arterial Line / Unknown 07/12/2023 5:24 AM CDT 07/12/2023 5:33 AM CDT Bay Perez MD LAB - BLOOD ORDERABLES LABORATORY [facility] Lab [address] Lab (1st floor, no room number) [place] [address], [facility] [phone] * PULMONARY FUNCTION TEST (06/13/2012 6:15 PM [...] VIRGINIA ORONA MD MT: Name: JAN HUDDLESTON Account: [id number] : 1960 Procedure Date: 05/06/2012 Document: [id number] Virginia Orona MD PFT ORDERABLES from Last 3 Months or Most Recently Relevant to Health Maintenance Advance Directives For more information, please contact: [phone] * Full Code (Latest Code Status on [...] 10:12 AM 07/05/2023 8:06 AM Care Teams Heel Curver Relationship Specialty Start Date End Date [facility], [facility] [address] [place] [address] PCP - General 03/28/17
--- OUTSIDE RECORDS SUMMARY | 2024-03-07 12:12 | XMS_ITS | Encounter Summary ---
Author Name Unknown Organization [place] Address [facility] [place] [address] Care Team Providers Care Remote Sensing Surveyor Name Role Phone Clinic, [facility] Primary Care Provider Reason for Referral * Consultation (Routine: Next available opening) - Pending Review Specialty Diagnoses / Procedures Referred By Lenore t Referred To Contact Pulmonary Disease Diagnoses COPD with acute exacerbation (H) Kaylene Sawant MD [address] [place] [address] Referral ID Status Reason Start Date Expiration Date V isits Requested Visits Authorized [id number] Pending Review 03/03/2024 03/03/2025 1 1 Question Answer Reason for Referral: Other My Clinical Question Is: concerns for underlying obesity hypoventilation syndrome and sleep apnea, may benefit from BiPAP Scheduling Instructions: [facility] will call you to coordinate your care as prescribed by the provider. If you don? t hear from a sales representative publications within 2 business days, please call . Comments Please be aware that coverage of these services is subject to the terms and limitations of your health insurance plan. Call member services at your health plan with any benefit or coverage questions. [facility] will call you to coordinate your care as prescribed by the provider. If you don? t hear from a sales representative publications within 2 business days, please call . Reason for Visit * Reason Comments Shortness of Breath * Auth/Cert (Routine) Specialty Diagnoses / Procedures Referred By Contac t Referred To Contact Med Surg Diagnoses Hypoxia COPD with acute exacerbation (H) Dyspnea, unspecified type Dyspnea, unspecified type Hypoxia COPD with acute exacerbation (H) 5 Medical Surgical [address] [place] [address] Referral ID Status Reason Start Date Expiration Date Visits Re quested Visits Authorized [id number] 1 1 Encounter Details Date Type Department Care Team (Late st Contact Info) Description 02/26/2024 1:00 PM CDT - 03/03/2024 1:55 PM CDT Hospital Encounter [facility] 5 Medical Surgical [address] [place] [address] Howard Rankin MD [facility] [address] [place] [address] Gary Mora MD [facility] [address] [facility] [address] [id number] Janee Stiles MD [address] [place] [address] Diuretic-induced hypokalemia (Primary Dx); Dyspnea, unspecified type; Hypoxia; COPD with acute exacerbation (H) Discharge Disposition: Home or Self Care Social History Tobacco Use Types Packs/Day Years [...] on file documented as of this encounter Last Filed Vital Signs Vital Sign Reading [...] Mass Index 53.84 02/26/2024 1:00 PM CDT documented in this encounter Discharge Summaries * Kaylene Sawant MD - 03/03/2024 1:55 PM CDT [facility] Hospitalist Discharge Summary Date of Admission: 02/26/2024 Date of Discharge: 03/03/2024 1:55 PM Discharging Provider: Kaylene Sawant MD Discharge Service: Hospitalist Service Discharge Diagnoses Acute hypoxic on chronic hypercapnic respiratory failure Acute COPD exacerbation Possible community-acquired pneumonia Probable underlying obesity hypoventilation syndrome Obstructive sleep apnea Tobacco use disorder Polycythemia Clinically Significant Risk Factors # Severe Obesity: Estimated body mass index is 53.84 kg/m?? as calculated from the following: Height as of this encounter: 1.829 m (6'). Weight as of this encounter: 180.1 kg (397 lb). Follow-ups Needed After Discharge Follow-up Appointments Follow-up and recommended labs and tests Follow up with primary care provider, [facility], within 7 days for hospital follow- up. The following labs/tests are recommended: CBC/BMP. Unresulted Labs Ordered in the Past 30 Days of this Admission No orders found from 01/27/2024 to 02/27/2024. Discharge Disposition Discharged to home Condition at discharge: Stable Hospital Course Maury Huddleston is a 63 year old male with past medical history significant for probable COPD, recent prolonged hospitalization for ARDS/CAP/MSSA bacteremia (06/2023), prior admission for ARDS 2/2 COVID-19 pneumonia (07/2021), ongoing tobacco use, hypertension, hypothyroidism, morbid obesity, obstructive sleep apnea, obesity hypoventilation syndrome, and history of alcohol dependence who presented to [facility] on 02/26/2024 with 2-3-day history of progressive shortness of breath and was found to have COPD exacerbation and possible community-acquired pneumonia. Acute Hypoxic on Chronic Hypercapnic Respiratory Failure Acute COPD Exacerbation Possible Community Acquired Pneumonia Obesity Hypoventilation Syndrome Obstructive Sleep Apnea Tobacco Use Disorder He has fairly significant pulmonary history with probable COPD, chronic hypercapnic respiratory failure 2/2 obesity hypoventilation syndrome and obstructive sleep apnea, and previous intubations for ARDS in 07/2021 and again in 06/2023. Unfortunately, patient reports that he recently started smoking cigarettes again, and over the past 2 to 3 days he has had progressive shortness of breath. He presented to [facility] on 02/26/2024 as been requiring 3-4 L via nasal cannula since admission. Pulmonary exam reveals diminished lung sounds bilaterally but no wheezing. CXR with linear opacities of the left lower lobe concerning for atelectasis versus edema versus atypical pneumonia. Appeared this is all likely a COPD exacerbation in the setting of recently resuming cigarette smoking. Patient started on IV Solu-Medrol plus DuoNebs 4 times daily plus levofloxacin. Completed levofloxacin course in the hospital . Switched to p.o. prednisone taper. During the hospitalization patient also received IV diuresis with resultant improve oxygenation and was discharged home on 7 day of p.o. Lasix. D-dimer remained negative. - Started prednisone 60 mg for 3 days followed by 40 mg for 3 days then 30 mg for 3 days then 20 mgfor 3 days then 10 mg for 3 days and then stop. - Completed 5-day course of levofloxacin in the hospital - Received IV Lasix in the hospital. Discharged on p.o. Lasix 40 mg daily for 7 days. -Obesity hypoventilation and obstructive sleep apnea are almost certainly contributing a large role, as well. Patient was continued on CPAP in the hospital. A pulmonology referral was placed upon discharge for further management of above issues. -Certainly obesity is the root cause problem, frankly discussed this with the patient. Recommended working up with primary doctor on weight management. Briefly discussed current medications to assistwith weight loss. PCP to discuss further with the patient. Counseled about smoking cessation again -Performed home oxygen assessment prior to discharge. Patient oxygenation at 88% on room air. And around 90 to 91% on room air with activity. Bilateral Lower Extremity Edema Physical examination difficult given obesity and body habitus. BNP was within normal limits, thoughthere is significant reduced sensitivity with this test in the setting of obesity. Low suspicion for heart failure at this time. Denied any orthopnea or paroxysmal nocturnal dyspnea. Received IV diuresis in the hospital. Diuretics upon discharge. PCP to follow-up further -Diuretic as above Polycythemia Pt noted to have elevated Hb, hematocrit and RBCs this hospitalization. He previously noted to haveoccasional high hb. He is asymptomatic. No thrombocytosis or significant leukocytosis. Polycythemialikely secondary in the setting of hypoxia however primary can not be ruled out without work up. Would defer further work up outpatient if hb continues to be >16.5 in the outpatient setting too. -Follow-up with PCP Leukocytosis --- improved Mild at 11.8-->10.8 -continue to monitor. Hypertension: Not on any medication prior to admission Hypothyroidism: Continue [employer] levothyroxine Obesity: Complicates cares Consultations This Hospital Stay PHYSICAL THERAPY ADULT IP CONSULT Code Status Full Code Time Spent on this Encounter I, Kaylene Sawant MD, personally saw the patient today and spent greater than 30 minutes discharging this patient. Kaylene Sawant MD [address] SURGICAL [address] [facility] [address] Physical Exam Vital Signs: Temp: 98 ??F (36.7 ??C) Temp src: Oral BP: 105/62 Pulse: 81 Resp: 17 SpO2: 94 % O2 Device: Nasal cannula Oxygen Delivery: 2 LPM Weight: 397 lbs 0 oz General: Very pleasant male lying in bed. awake, alert, interactive. HEENT: Normocephalic, atraumatic. PERRL, EOMI. Conjunctiva clear, sclerae anicteric. Mucous membranes moist. Cardiac: Regular rate and rhythm without murmur, gallop, or rub. 1+ peripheral edema. Respiratory: Improved air entry bilaterally, no wheezing Musculoskeletal: Moving all extremities appropriately. Skin: No rashes or abrasions on exposed skin. Neurologic: Alert and oriented x4. No focal deficit Psychologic: Appropriate mood and affect. Primary Care Physician [facility] Discharge Orders Adult Pulmonary Medicine [employer] Player Referral Reason for your hospital stay COPD exacerbation Follow-up and recommended labs and tests Follow up with primary care provider, [facility], within 7 days for hospital follow- up. The following labs/tests are recommended: CBC/BMP. Activity Your activity upon discharge: activity as tolerated Diet Follow this diet upon discharge: Orders Placed This Encounter Combination Diet Regular Diet Adult Significant Results and Procedures Most Recent 3 CBC's: Recent Labs Lab Test 03/03/24 0921 03/02/24 0952 02/29/24 0729 WBC 10.9 11.8* 9.4 HGB 18.2* 18.7* 19.0* MCV 94 95 94 PLT 198 211 262 Most Recent 3 BMP's: Recent Labs Lab Test 03/03/24 0921 03/02/24 0952 03/01/24 0806 NA 139 136 141 POTASSIUM 4.2 4.2 4.8 CHLORIDE 94* 92* 96* CO2 34* 36* 38* BUN 28.5* 27.2* 25.9* CR 1.01 0.97 0.89 ANIONGAP 11 8 7 ZOFIA 9.0 9.2 9.8 GLC 112* 124* 89 Discharge Medications Discharge Medication List as of 03/03/2024 12:18 PM START taking these medications Details furosemide (LASIX) 20 MG tablet Take 2 tablets (40 mg) by mouth daily for 7 days, Disp-14 tablet, R-0, E-Prescribe potassium chloride wilber ER (KLOR-CON M20) 20 MEQ CR tablet Take 1 tablet (20 mEq) by mouth daily, Disp-7 tablet, R-0, E-Prescribe predniSONE (DELTASONE) 20 MG tablet Take 2 tablets (40 mg) by mouth daily for 2 days, THEN 1.5 tablets (30 mg) daily for 3 days, THEN 1 tablet (20 mg) daily for 3 days, THEN 0.5 tablets (10 mg) dailyfor 3 days., Disp-13 tablet, R-0, E-Prescribe CONTINUE these medications which have NOT CHANGED Details acetaminophen (TYLENOL) 325 MG tablet Take 325 mg by mouth daily, Historical albuterol (PROAIR HFA/PROVENTIL HFA/VENTOLIN HFA) 108 (90 Base) MCG/ACT inhaler Inhale 6 puffs intothe lungs every 2 hours as needed for wheezing, Disp-18 g, R- 0, E-PrescribePharmacy may dispense brand covered by insurance (Proair, or proventil or ventolin or generic albuterol inhaler) aspirin 81 MG EC tablet Take 81 mg by mouth daily, Historical gabapentin (NEURONTIN) 300 MG capsule Take 300 mg by mouth At Bedtime, Historical levothyroxine (SYNTHROID, LEVOTHROID) 50 MCG tablet Take 1 tablet by mouth every morning (before breakfast)., 50 mcg, Oral, EVERY MORNING BEFORE BREAKFAST Starting 05/09/2012, Until Discontinued, Disp-90 tablet, R-0, E-Prescribe sennosides (SENOKOT) 8.6 MG tablet Take 1 tablet by mouth daily as needed for constipation, No Print Out terazosin (HYTRIN) 2 MG capsule Take 2 mg by mouth At Bedtime, Historical tiotropium (SPIRIVA RESPIMAT) 2.5 MCG/ACT inhaler Inhale 1 puff into the lungs daily, Historical vitamin D3 (CHOLECALCIFEROL) 50 mcg (2000 units) tablet Take 1 tablet by mouth daily, Historical STOP taking these medications QUEtiapine (SEROQUEL) 25 MG tablet Comments: Reason for Stopping: Allergies Allergies Allergen Reactions Ancef [Cefazolin] Rash Skin sloughed off. documented in this encounter Medications at Time of Discharge Medication Sig Dispensed Refills Start Date End Date acetaminophen (TYLENOL) 325 MG tablet Take 325 mg by mouth daily albuterol (PROAIR HFA/PROVENTIL HFA/VENTOLIN HFA) 108 (90 Base) MCG/ACT inhalerIndications:Chr onic obstructive pulmonary disease, unspecified COPD type (H) Inhale 6 puffs into the lungs every 2 hours as needed for wheezing 18 g 08/08/2023 aspirin 81 MG EC tablet Take 81 mg by mouth daily furosemide (LASIX) 20 MG tabletIndications:COPD with acute exacerbation (H) Take 2 tablets (40 mg) by mouth daily for 7 days 14 tablet 03/03/2024 03/10/2024 gabapentin (NEURONTIN) 300 MG capsule Take 300 mg by mouth At Bedtime levothyroxine (SYNTHROID, LEVOTHROID) 50 MCG tabletIndications:Hypo thyroidism Take 1 tablet by mouth every morning (before breakfast). 90 tablet 0 05/09/2012 potassium chloride wilber ER (KLOR-CON M20) 20 MEQ CR tabletIndications:Diur etic-induced hypokalemia Take 1 tablet (20 mEq) by mouth daily 7 tablet 03/03/2024 predniSONE (DELTASONE) 20 MG tabletIndications:COPD with acute exacerbation (H) Take 2 tablets (40 mg) by mouth daily for 2 days, THEN 1.5 tablets (30 mg) daily for 3 days, THEN 1 tablet (20 mg) daily for 3 days, THEN 0.5 tablets (10 mg) daily for 3 days. 13 tablet 03/03/2024 03/14/2024 sennosides (SENOKOT) 8.6 MG tabletIndications:Cons tipation, unspecified constipation type Take 1 tablet by mouth daily as needed for constipation 08/12/2023 terazosin (HYTRIN) 2 MG capsule Take 2 mg by mouth At Bedtime tiotropium (SPIRIVA RESPIMAT) 2.5 MCG/ACT inhaler Inhale 1 puff into the lungs daily vitamin D3 (CHOLECALCIFEROL) 50 mcg (2000 units) tablet Take 1 tablet by mouth daily documented as of this encounter Progress Notes * Maureen Verdugo - 03/03/2024 10:28 AM CDT Patient has been assessed for Home Oxygen needs. Oxygen readings: *Pulse oximetry (SpO2) = 88% on room air at rest while awake. *SpO2 improved to 91% on 2 liters/minute at rest. *SpO2 = 90/91% on room air during activity/with exercise. *SpO2 improved to 90/91% on 0 liters/minute during activity/with exercise. * Kaylene Sawant MD - 03/02/2024 1:23 PM CDT [facility] Medicine Progress Note - Hospitalist Service Date of Admission: 02/26/2024 Assessment & Plan Maury Huddleston is a 63 year old male with past medical history significant for probable COPD, recent prolonged hospitalization for ARDS/CAP/MSSA bacteremia (06/2023), prior admission for ARDS 2/2 COVID-19 pneumonia (07/2021), ongoing tobacco use, hypertension, hypothyroidism, morbid obesity, obstructive sleep apnea, obesity hypoventilation syndrome, and history of alcohol dependence who presented to [facility] on 02/26/2024 with 2-3-day history of progressive shortness of breath and was found to have COPD exacerbation and possible community-acquired pneumonia. Acute Hypoxic on Chronic Hypercapnic Respiratory Failure Acute COPD Exacerbation Possible Community Acquired Pneumonia Obesity Hypoventilation Syndrome Obstructive Sleep Apnea Tobacco Use Disorder He has fairly significant pulmonary history with probable COPD, chronic hypercapnic respiratory failure 2/2 obesity hypoventilation syndrome and obstructive sleep apnea, and previous intubations for ARDS in 07/2021 and again in 06/2023. Unfortunately, patient reports that he recently started smoking cigarettes again, and over the past 2 to 3 days he has had progressive shortness of breath. He presented to [facility] on 02/26/2024 as been requiring 3-4 L via nasal cannula since admission. Pulmonary exam reveals diminished lung sounds bilaterally but no wheezing. CXR with linear opacities of the left lower lobe concerning for atelectasis versus edema versus atypical pneumonia. Appeared this is all likely a COPD exacerbation in the setting of recently resuming cigarette smoking. Patient started on IV Solu-Medrol plus DuoNebs 4 times daily plus levofloxacin. Patient also startedon IV Lasix on 02/27. His oxygen requirement improved so he was switched to PO lasix with resultant increase in o2 requirement. Now back on IV lasix . Patient does not appear volume overloaded and has low BNP however he is obese so difficult to interpret. D-dimer remained negative. - continue prednisone taper, see below - Started prednisone 60 mg for 3 days followed by 40 mg for 3 days then 30 mg for 3 days then 20 mgfor 3 days then 10 mg for 3 days and then stop. -Continue levofloxacin, planning 5-day course - IV lasix 40 mg BID -Obesity hypoventilation and obstructive sleep apnea are almost certainly contributing a large role, as well. Will continue CPAP but could consider evaluation with store associate as outpatient and help determining whether BiPAP may be beneficial for this patient, as he does have chronic elevation ofhis CO2 at baseline. Will refer to pulmonology upon discharge. Bilateral Lower Extremity Edema Physical examination given obesity and body habitus. BNP was within normal limits, though there is significant reduced sensitivity with this test in the setting of obesity. Low suspicion for heart failure at this time. Will continue diuretic as above given symptomatic improvement -Diuretic as above Polycythemia Pt noted to have elevated Hb, hematocrit and RBCs this hospitalization. He previously noted to haveoccasional high hb. He is asymptomatic. No thrombocytosis or significant leukocytosis. Polycythemialikely secondary in the setting of hypoxia however primary an not be ruled out without work up. Would defer further work up outpatient if hb continues to be >16.5 in the outpatient setting too. -monitor CBC Leukocytosis Mild at 11.8. -continue to monitor. Hypertension: Not on any medication prior to admission Hypothyroidism: Continue [employer] levothyroxine Obesity: Complicates cares Clinically Significant Risk Factors # Hypertension: Noted on problem list # Severe Obesity: Estimated body mass index is 54.37 kg/m?? as calculated from the following: Height as of this encounter: 1.829 m (6'). Weight as of this encounter: 181.8 kg (400 lb 14.4 oz). # COPD: noted on problem list Diet: Orders Placed This Encounter Combination Diet Regular Diet Adult DVT Prophylaxis: Pneumatic Compression Devices Leyva: None Code Status: Full Code Medically Ready for Discharge: Likely tomorrow The patient's care was discussed with the Bedside Nurse and Patient. I personally spent 43 minutes on chart review, documentation, coordination, and bedside management of patient. [facility] Interval History Nursing notes reviewed. He is improving antibody gradually. Though still requiring oxygen. No new complaints or issues full 10+ point review of systems was performed and found to be negative with the exception of thoseitems noted here. Physical Exam Temp: 98 ??F (36.7 ??C) Temp src: Oral BP: 130/83 Pulse: 99 Resp: 16 SpO2: 93 % O2 Device: Nasal cannula Oxygen Delivery: 1 LPM Height: 182.9 cm (6') Weight: (!) 181.8 kg (400 lb 14.4 oz) Estimated body mass index is 54.37 kg/m?? as calculated from the following: Height as of this encounter: 1.829 m (6'). Weight as of this encounter: 181.8 kg (400 lb 14.4 oz). General: Very pleasant male lying in bed. awake, alert, interactive. HEENT: Normocephalic, atraumatic. PERRL, EOMI. Conjunctiva clear, sclerae anicteric. Mucous membranes moist. Cardiac: Regular rate and rhythm without murmur, gallop, or rub. 2-3+ peripheral edema. Respiratory: Nasal cannula in place. Improved air entry bilaterally, no wheezing Musculoskeletal: Moving all extremities appropriately. Skin: No rashes or abrasions on exposed skin. Neurologic: Alert and oriented x4. No focal deficit Psychologic: Appropriate mood and affect. Data All laboratory results and other diagnostic data from the past 24 hours is available in [facility] and has been personally reviewed. Recent Labs Lab 03/02/24 0952 03/01/24 0806 02/29/24 0729 02/27/24 0625 02/26/24 1317 WBC 11.8* -- 9.4 7.6 8.7 HGB 18.7* -- 19.0* 18.1* 18.2* MCV 95 -- 94 96 93 PLT 211 -- 262 208 208 NA 136 141 137 141 139 POTASSIUM 4.2 4.8 4.6 5.3 4.5 CHLORIDE 92* 96* 93* 99 99 CO2 36* 38* 32* 31* 32* BUN 27.2* 25.9* 28.0* 21.5 17.2 CR 0.97 0.89 0.96 0.91 0.90 ANIONGAP 8 7 12 11 8 ZOFIA 9.2 9.8 9.8 9.3 9.4 GLC 124* 89 125* 125* 100* ALBUMIN -- -- -- -- 3.8 PROTTOTAL -- -- -- -- 7.7 BILITOTAL -- -- -- -- 2.2* ALKPHOS -- -- -- -- 90 ALT -- -- -- -- 14 AST -- -- -- -- 15 LIPASE -- -- -- -- 13 Imaging results reviewed over the past 24 hrs: No results found for this or any previous visit (from the past 24 hour(s)). I personally reviewed: no images or EKG's today. * Ely Wagner PT - 03/02/2024 12:02 PM CDT 03/02/24 1144 Appointment Info Signing Clinician's Name / Credentials (PT) Ely Wagner PT Living Environment People in Home other relative(s) (lives with brother) Current Living Arrangements house Home Accessibility stairs to enter home Number of Stairs, Main Entrance 1 Stair Railings, Main Entrance none (holds onto a cabinet) Transportation Anticipated family or friend will provide (states sister will pick him up; drives at baseline) Living Environment Comments reports main level living Self-Care Usual Activity Tolerance good Current Activity Tolerance moderate Regular Exercise No Equipment Currently Used at Home none Fall history within last six months no Activity/Exercise/Self-Care Comment reports he is independent with toileting; brother and patient share cooking tasks General Information Onset of Illness/Injury or Date of Surgery 02/26/24 Referring Physician Kaylene Sawant MD Patient/Family Therapy Goals Statement (PT) return home Pertinent History of Current Problem (include personal factors and/or comorbidities that impact thePOC) per chart: Maury Huddleston is a 63 year old male with past medical history significant for probable COPD, recent prolonged hospitalization for ARDS/CAP/MSSA bacteremia (06/2023), prior admission for ARDS 2/2 COVID-19 pneumonia (07/2021), ongoing tobacco use, hypertension, hypothyroidism, morbid obesity, obstructive sleep apnea, obesity hypoventilation syndrome, and history of alcohol dependence who presented to [facility] on 02/26/2024 with 2-3-day history of progressive shortness of breath and was found to have COPD exacerbation and possible community-acquired pneumonia.; see medical record for further information Existing Precautions/Restrictions oxygen therapy device and L/min (1L) General Observations Patient up in chair; agreeable to evaluation Cognition Orientation Status (Cognition) oriented x 4 Cognitive Status Comments appears intact during session Pain Assessment Patient Currently in Pain No Strength (Manual Muscle Testing) Strength Comments mild functional weakness; decreased activity tolerance; slightly below baseline per patient Bed Mobility Comment, (Bed Mobility) NT; patient reports having a hospital bed at home and denies any trouble with bed mobility Transfers Comment, (Transfers) independent Gait/Stairs (Locomotion) Comment, (Gait/Stairs) independent in hallway > 150 feet; no LOB; O2 sats 91% on room air Balance Balance Comments mild path deviations but no gross LOB Clinical Impression Criteria for Skilled Therapeutic Intervention Evaluation only;No problems identified which require skilled intervention Clinical Presentation (PT Evaluation Complexity) stable Clinical Presentation Rationale clinical judgement Clinical Decision Making (Complexity) low complexity Risk & Benefits of therapy have been explained patient;evaluation/treatment results reviewed Clinical Impression Comments 1x eval only; appears near reported baseline level of function PT Total Evaluation Time PT Eval, Low Complexity Minutes (06637) 15 PT Discharge Planning PT Plan Eval only PT Discharge Recommendation (DC Rec) home PT Rationale for DC Rec Per evaluation, appears patient at or near his reported baseline level of function; no significant PT needs identified PT Brief overview of current status independent with functional mobility; able to maintain O2 sats > 90% on room air with activity; currently on 1L Total Session Time Total Session Time (sum of timed and untimed services) 15 * Kaylene Sawant MD - 03/01/2024 11:34 AM CDT [facility] Medicine Progress Note - Hospitalist Service Date of Admission: 02/26/2024 Assessment & Plan Maury Barrientos Flaquito is a 63 year old male with past medical history significant for probable COPD, recent prolonged hospitalization for ARDS/CAP/MSSA bacteremia (06/2023), prior admission for ARDS 2/2 COVID-19 pneumonia (07/2021), ongoing tobacco use, hypertension, hypothyroidism, morbid obesity, obstructive sleep apnea, obesity hypoventilation syndrome, and history of alcohol dependence who presented to [facility] on 02/26/2024 with 2-3-day history of progressive shortness of breath and was found to have COPD exacerbation and possible community-acquired pneumonia. Acute Hypoxic on Chronic Hypercapnic Respiratory Failure Acute COPD Exacerbation Possible Community Acquired Pneumonia Obesity Hypoventilation Syndrome Obstructive Sleep Apnea Tobacco Use Disorder He has fairly significant pulmonary history with probable COPD, chronic hypercapnic respiratory failure 2/2 obesity hypoventilation syndrome and obstructive sleep apnea, and previous intubations for ARDS in 07/2021 and again in 06/2023. Unfortunately, patient reports that he recently started smoking cigarettes again, and over the past 2 to 3 days he has had progressive shortness of breath. He presented to [facility] on 02/26/2024 as been requiring 3-4 L via nasal cannula since admission. Pulmonary exam reveals diminished lung sounds bilaterally but no wheezing. CXR with linear opacities of the left lower lobe concerning for atelectasis versus edema versus atypical pneumonia. Appeared this is all likely a COPD exacerbation in the setting of recently resuming cigarette smoking. Patient is started on IV Solu-Medrol plus DuoNebs 4 times daily plus levofloxacin. Patient also started on IV Lasix on 02/27. His oxygen requirement improved and he is down from 6 L to 3 L nasal cannula. At baseline he does not wear any oxygen. Now oxygen requirement went up to 5 L. D-dimer negative. -Discussed with RN in person about monitoring pulse ox carefully and weaning down the oxygen as able. Suspecting patient might not need 5 L of oxygen as overall his lung exam is improving every day - continue prednisone taper, see below - Start prednisone 60 mg for 3 days followed by 40 mg for 3 days then 30 mg for 3 days then 20 mg for 3 days then 10 mg for 3 days and then stop. -Continue levofloxacin, planning 5-day course - Difficult to assess volume status however patient lung exam improved after receiving IV diuretics. Patient had lost IV and was improving so started on p.o. diuretic. Will switch him back to IV lasix. -Incentive spirometry every 2 hours -Obesity hypoventilation and obstructive sleep apnea are almost certainly contributing a large role, as well. Will continue CPAP but could consider evaluation with store associate as outpatient and help determining whether BiPAP may be beneficial for this patient, as he does have chronic elevation ofhis CO2 at baseline. Bilateral Lower Extremity Edema Physical examination given obesity and body habitus. BNP was within normal limits, though there is significant reduced sensitivity with this test in the setting of obesity. Low suspicion for heart failure at this time. Will continue diuretic as above given symptomatic improvement -Diuretic as above Hypertension: Not on any medication prior to admission Hypothyroidism: Continue [employer] levothyroxine Obesity: Complicates cares Clinically Significant Risk Factors # Hypertension: Noted on problem list # Severe Obesity: Estimated body mass index is 54.51 kg/m?? as calculated from the following: Height as of this encounter: 1.829 m (6'). Weight as of this encounter: 182.3 kg (401 lb 14.4 oz)., PRESENT ON ADMISSION # COPD: noted on problem list Diet: Orders Placed This Encounter Combination Diet Regular Diet Adult DVT Prophylaxis: Pneumatic Compression Devices Leyva: None Code Status: Full Code Medically Ready for Discharge: Likely tomorrow The patient's care was discussed with the Bedside Nurse and Patient. I personally spent 44 minutes on chart review, documentation, coordination, and bedside management of patient. [facility] Hospitalist Service [facility] Interval History Nursing notes reviewed. Patient reported feeling significantly better. He started doing incentive spirometry this morning. full 10+ point review of systems was performed and found to be negative with the exception of thoseitems noted here. Physical Exam Temp: 97.3 ??F (36.3 ??C) Temp src: Axillary BP: 136/79 Pulse: 70 Resp: 20 SpO2: 96 % O2 Device: Nasal cannula Oxygen Delivery: 5 LPM Height: 182.9 cm (6') Weight: (!) 182.3 kg (401 lb 14.4 oz) Estimated body mass index is 54.51 kg/m?? as calculated from the following: Height as of this encounter: 1.829 m (6'). Weight as of this encounter: 182.3 kg (401 lb 14.4 oz). General: Very pleasant male sitting on side of hospital bed. Awake, alert, interactive. HEENT: Normocephalic, atraumatic. PERRL, EOMI. Conjunctiva clear, sclerae anicteric. Mucous membranes moist. Cardiac: Regular rate and rhythm without murmur, gallop, or rub. 2-3+ peripheral edema. Respiratory: Nasal cannula in place. Improved air entry bilaterally, no wheezing Musculoskeletal: Moving all extremities appropriately. Skin: No rashes or abrasions on exposed skin. Neurologic: Alert and oriented x4. No focal deficit Psychologic: Appropriate mood and affect. Data All laboratory results and other diagnostic data from the past 24 hours is available in Epic and has been personally reviewed. Recent Labs Lab 03/01/24 0806 02/29/24 0729 02/27/24 0625 02/26/24 1317 WBC -- 9.4 7.6 8.7 HGB -- 19.0* 18.1* 18.2* MCV -- 94 96 93 PLT -- 262 208 208 NA 141 137 141 139 POTASSIUM 4.8 4.6 5.3 4.5 CHLORIDE 96* 93* 99 99 CO2 38* 32* 31* 32* BUN 25.9* 28.0* 21.5 17.2 CR 0.89 0.96 0.91 0.90 ANIONGAP 7 12 11 8 ZOFIA 9.8 9.8 9.3 9.4 GLC 89 125* 125* 100* ALBUMIN -- -- -- 3.8 PROTTOTAL -- -- -- 7.7 BILITOTAL -- -- -- 2.2* ALKPHOS -- -- -- 90 ALT -- -- -- 14 AST -- -- -- 15 LIPASE -- -- -- 13 Imaging results reviewed over the past 24 hrs: No results found for this or any previous visit (from the past 24 hour(s)). I personally reviewed: no images or EKG's today. * Ashish Mishra RT - 03/01/2024 3:48 AM CDT A BiPAP of 18/10 @ 45% was applied to the pt via the mask for an increase in WOB and/or SOB. The bridge of the nose looks good and remains intact. Pt is tolerating it well. Will continue to monitor and assess the pt's current respiratory status and needs. * Kaylene Sawant MD - 02/29/2024 2:25 PM CDT [facility] Medicine Progress Note - Hospitalist Service Date of Admission: 02/26/2024 Assessment & Plan Maury Huddleston is a 63 year old male with past medical history significant for probable COPD, recent prolonged hospitalization for ARDS/CAP/MSSA bacteremia (06/2023), prior admission for ARDS 2/2 COVID-19 pneumonia (07/2021), ongoing tobacco use, hypertension, hypothyroidism, morbid obesity, obstructive sleep apnea, obesity hypoventilation syndrome, and history of alcohol dependence who presented to [facility] on 02/26/2024 with 2-3-day history of progressive shortness of breath and was found to have COPD exacerbation and possible community-acquired pneumonia. Acute Hypoxic on Chronic Hypercapnic Respiratory Failure Acute COPD Exacerbation Possible Community Acquired Pneumonia Obesity Hypoventilation Syndrome Obstructive Sleep Apnea Tobacco Use Disorder He has fairly significant pulmonary history with probable COPD, chronic hypercapnic respiratory failure 2/2 obesity hypoventilation syndrome and obstructive sleep apnea, and previous intubations for ARDS in 07/2021 and again in 06/2023. Unfortunately, patient reports that he recently started smoking cigarettes again, and over the past 2 to 3 days he has had progressive shortness of breath. He presented to [facility] on 02/26/2024 as been requiring 3-4 L via nasal cannula since admission. Pulmonary exam reveals diminished lung sounds bilaterally but no wheezing. CXR with linear opacities of the left lower lobe concerning for atelectasis versus edema versus atypical pneumonia. Appeared this is all likely a COPD exacerbation in the setting of recently resuming cigarette smoking. Patient is started on IV Solu-Medrol plus DuoNebs 4 times daily plus levofloxacin. Patient also started on IV Lasix on 02/27. His oxygen requirement improved and he is down from 6 L to 3 L nasal cannula. At baseline he does not wear any oxygen. Reported feeling much improved. -Stop IV methylprednisolone, switch to prednisone taper - Start prednisone 60 mg for 3 days followed by 40 mg for 3 days then 30 mg for 3 days then 20 mg for 3 days then 10 mg for 3 days and then stop. -Continue levofloxacin, planning 5-day course - Difficult to assess volume status however patient lung exam improved after receiving IV diuretics. Patient has lost IV and overall improving so will start patient on p.o. diuretic -Incentive spirometry every 2 hours -Obesity hypoventilation and obstructive sleep apnea are almost certainly contributing a large role, as well. Will continue CPAP but could consider evaluation with store associate as outpatient and help determining whether BiPAP may be beneficial for this patient, as he does have chronic elevation ofhis CO2 at baseline. Bilateral Lower Extremity Edema Physical examination given obesity and body habitus. BNP was within normal limits, though there is significant reduced sensitivity with this test in the setting of obesity. Low suspicion for heart failure at this time. Will continue diuretic as above given symptomatic improvement -Diuretic as above Hypertension: Not on any medication prior to admission Hypothyroidism: Continue [employer] levothyroxine Obesity: Complicates cares Clinically Significant Risk Factors # Hypertension: Noted on problem list # Severe Obesity: Estimated body mass index is 53.9 kg/m?? as calculated from the following: Height as of this encounter: 1.829 m (6'). Weight as of this encounter: 180.3 kg (397 lb 6.4 oz)., PRESENT ON ADMISSION # COPD: noted on problem list Diet: Orders Placed This Encounter Combination Diet Regular Diet Adult DVT Prophylaxis: Pneumatic Compression Devices Leyva: None Code Status: Full Code Medically Ready for Discharge: Likely tomorrow The patient's care was discussed with the Bedside Nurse and Patient. I personally spent 44 minutes on chart review, documentation, coordination, and bedside management of patient. Kaylene Sawant Hospitalist Service [facility] Interval History Nursing notes reviewed. Patient reported feeling significantly better. He feels that IV Lasix helped him a lot. A full 10+ point review of systems was performed and found to be negative with the exception of those items noted here. Physical Exam Temp: 98.1 ??F (36.7 ??C) Temp src: Oral BP: 134/76 Pulse: 70 Resp: 16 SpO2: 95 % O2 Device: Nasal cannula Oxygen Delivery: 6 LPM Height: 182.9 cm (6') Weight: (!) 180.3 kg (397 lb 6.4 oz) Estimated body mass index is 53.9 kg/m?? as calculated from the following: Height as of this encounter: 1.829 m (6'). Weight as of this encounter: 180.3 kg (397 lb 6.4 oz). General: Very pleasant male sitting on side of hospital bed. Awake, alert, interactive. HEENT: Normocephalic, atraumatic. PERRL, EOMI. Conjunctiva clear, sclerae anicteric. Mucous membranes moist. Cardiac: Regular rate and rhythm without murmur, gallop, or rub. 2-3+ peripheral edema. Respiratory: Nasal cannula in place. Improved air entry bilaterally, no wheezing Musculoskeletal: Moving all extremities appropriately. Skin: No rashes or abrasions on exposed skin. Neurologic: Alert and oriented x4. Cranial nerves II through XII grossly intact. Psychologic: Appropriate mood and affect. Data All laboratory results and other diagnostic data from the past 24 hours is available in [facility] and has been personally reviewed. Recent Labs Lab 02/29/24 0729 02/27/24 0625 02/26/24 1317 WBC 9.4 7.6 8.7 HGB 19.0* 18.1* 18.2* MCV 94 96 93 PLT 262 208 208 NA 137 141 139 POTASSIUM 4.6 5.3 4.5 CHLORIDE 93* 99 99 CO2 32* 31* 32* BUN 28.0* 21.5 17.2 CR 0.96 0.91 0.90 ANIONGAP 12 11 8 ZOFIA 9.8 9.3 9.4 GLC 125* 125* 100* ALBUMIN -- -- 3.8 PROTTOTAL -- -- 7.7 BILITOTAL -- -- 2.2* ALKPHOS -- -- 90 ALT -- -- 14 AST -- -- 15 LIPASE -- -- 13 Imaging results reviewed over the past 24 hrs: No results found for this or any previous visit (from the past 24 hour(s)). I personally reviewed: no images or EKG's today. * Luis Smiley RT - 02/29/2024 1:11 AM CDT [facility] Date: 02/29/24 Admission Dx: Hypoxia Pulmonary History: COVID-19, Prior Intubation, SOB, AURA Home Nebulizer/MDI Use: Albuterol inhaler PRN Home Oxygen: None Acuity Level (RCAT flow sheet): 3 Aerosol Therapy initiated: continue dueoneb QID Pulmonary Hygiene initiated: Deep Breathing and Coughing Encouraged Volume Expansion initiated: Incentive Spirometer Current Oxygen Requirements: 3 L NC Current SpO2: 92% Re-evaluation date: 03/03/24 Patient Education: Patient educated on importance on nebulizers and BiPAP usage especially with sleep. See RT Assessments flow sheet for patient assessment scoring and Acuity Level Details. RT Bhumika * Luis Smiley RT - 02/29/2024 12:19 AM CDT Respiratory Therapy Note Patient was placed on BiPAP for the night without issue. Skin checked with no signs of breakdown. RT to continue to monitor and assess during hospital stay. Oxygen Therapy: BiPAP 18/10 45% RT Bhumika on 02/29/2024 at 12:20 AM * Kaylene Sawant MD - 02/28/2024 7:56 PM CDT [facility] Medicine Progress Note - Hospitalist Service Date of Admission: 02/26/2024 Assessment & Plan Jay Jay Flaquito is a 63 year old male with past medical history significant for probable COPD, recent prolonged hospitalization for ARDS/CAP/MSSA bacteremia (06/2023), prior admission for ARDS 2/2 COVID-19 pneumonia (07/2021), ongoing tobacco use, hypertension, hypothyroidism, morbid obesity, obstructive sleep apnea, obesity hypoventilation syndrome, and history of alcohol dependence who presented to [facility] on 02/26/2024 with 2-3-day history of progressive shortness of breath and was found to have COPD exacerbation and possible community-acquired pneumonia. Acute Hypoxic on Chronic Hypercapnic Respiratory Failure Acute COPD Exacerbation Possible Community Acquired Pneumonia Obesity Hypoventilation Syndrome Obstructive Sleep Apnea Tobacco Use Disorder He has fairly significant pulmonary history with probable COPD, chronic hypercapnic respiratory failure 2/2 obesity hypoventilation syndrome and obstructive sleep apnea, and previous intubations for ARDS in 07/2021 and again in 06/2023. Unfortunately, patient reports that he recently started smoking cigarettes again, and over the past 2 to 3 days he has had progressive shortness of breath. He presented to [facility] on 02/26/2024 as been requiring 3-4 L via nasal cannula since admission. Pulmonary exam reveals diminished lung sounds bilaterally but no wheezing. CXR with linear opacities of the left lower lobe concerning for atelectasis versus edema versus atypical pneumonia. Appeared this is all likely a COPD exacerbation in the setting of recently resuming cigarette smoking. Will continue therapies for COPD exacerbation with Solu-Medrol + DuoNebs 4 times daily + albuterol nebs as needed. Dr. Castro Have also changed from azithromycin to levofloxacin for better pulmonary coverage of possible community-acquired pneumonia. Obesity hypoventilation and obstructive sleep apnea are almost certainly contributing a large role, as well. Will continue CPAP but could consider evaluation with store associate as outpatient and help determining whether BiPAP may be beneficial for thispatient, as he does have chronic elevation of his CO2 at baseline. Counseled patient about absolutetobacco cessation, as well. Will also start patient on IV diuresis to see if it helps with oxygenation. Bilateral Lower Extremity Edema Patient has significant bilateral lower extremity edema. BNP was within normal limits, though thereis significant reduced sensitivity with this test in the setting of obesity. I do not suspect that heart failure is not at play here, but rather that this is likely secondary to continued/chronic [id number]. -Continue CPAP, as above -Consider outpatient evaluation for BiPAP to allow for increased CO2 exchange Hypertension: Continue [employer] torsemide Hypothyroidism: Continue [employer] levothyroxine Obesity: Complicates cares Clinically Significant Risk Factors # Hypertension: Noted on problem list # Severe Obesity: Estimated body mass index is 54.43 kg/m?? as calculated from the following: Height as of this encounter: 1.829 m (6'). Weight as of this encounter: 182 kg (401 lb 4.8 oz)., PRESENT ON ADMISSION # COPD: noted on problem list Diet: Orders Placed This Encounter Combination Diet Regular Diet Adult DVT Prophylaxis: Pneumatic Compression Devices Leyva: None Code Status: Full Code Medically Ready for Discharge: Anticipated in 2-4 Days The patient's care was discussed with the Bedside Nurse and Patient. I personally spent 45 minutes on chart review, documentation, coordination, and bedside management of patient. Kaylene Sawant Hospitalist Service [facility] Interval History Nursing notes reviewed. Patient reported feeling a bit better. Still on oxygen. Denied any orthopnea or PND. A full 10+ point review of systems was performed and found to be negative with the exception of those items noted here. Physical Exam Temp: 98 ??F (36.7 ??C) Temp src: Oral BP: 122/66 Pulse: 87 Resp: 16 SpO2: 92 % O2 Device: Nasal cannula Oxygen Delivery: 3 LPM Height: 182.9 cm (6') Weight: (!) 182 kg (401 lb 4.8 oz) Estimated body mass index is 54.43 kg/m?? as calculated from the following: Height as of this encounter: 1.829 m (6'). Weight as of this encounter: 182 kg (401 lb 4.8 oz). General: Very pleasant male sitting on side of hospital bed. Awake, alert, interactive. HEENT: Normocephalic, atraumatic. PERRL, EOMI. Conjunctiva clear, sclerae anicteric. Mucous membranes moist. Cardiac: Regular rate and rhythm without murmur, gallop, or rub. 2-3+ peripheral edema. Respiratory: Nasal cannula in place. Diminished lung sounds bilaterally, no wheezing. Musculoskeletal: Moving all extremities appropriately. Skin: No rashes or abrasions on exposed skin. Neurologic: Alert and oriented x4. Cranial nerves II through XII grossly intact. Psychologic: Appropriate mood and affect. Data All laboratory results and other diagnostic data from the past 24 hours is available in Epic and has been personally reviewed. Recent Labs Lab 02/27/24 0625 02/26/24 1317 WBC 7.6 8.7 HGB 18.1* 18.2* MCV 96 93 PLT 208 208 NA 141 139 POTASSIUM 5.3 4.5 CHLORIDE 99 99 CO2 31* 32* BUN 21.5 17.2 CR 0.91 0.90 ANIONGAP 11 8 ZOFIA 9.3 9.4 GLC 125* 100* ALBUMIN -- 3.8 PROTTOTAL -- 7.7 BILITOTAL -- 2.2* ALKPHOS -- 90 ALT -- 14 AST -- 15 LIPASE -- 13 Imaging results reviewed over the past 24 hrs: No results found for this or any previous visit (from the past 24 hour(s)). I personally reviewed: no images or EKG's today. * Luis Smiley RT - 02/28/2024 5:06 AM CDT Respiratory Therapy Note Patient was placed on BiPAP for the night without issue. Skin checked with no signs of breakdown. RT to continue to monitor and assess during hospital stay. Oxygen Therapy: 15/08 45% RT Bhumika * Marvin Castro MD - 02/27/2024 3:24 PM CDT [facility] Medicine Progress Note - Hospitalist Service Date of Admission: 02/26/2024 Assessment & Plan Maury Huddleston is a 63 year old male with past medical history significant for probable COPD, recent prolonged hospitalization for ARDS/CAP/MSSA bacteremia (06/2023), prior admission for ARDS 2/2 COVID-19 pneumonia (07/2021), ongoing tobacco use, hypertension, hypothyroidism, morbid obesity, obstructive sleep apnea, obesity hypoventilation syndrome, and history of alcohol dependence who presented to [facility] on 02/26/2024 with 2-3-day history of progressive shortness of breath and was found to have COPD exacerbation and possible community-acquired pneumonia. Acute Hypoxic on Chronic Hypercapnic Respiratory Failure Acute COPD Exacerbation Possible Community Acquired Pneumonia Obesity Hypoventilation Syndrome Obstructive Sleep Apnea Tobacco Use Disorder He has fairly significant pulmonary history with probable COPD, chronic hypercapnic respiratory failure 2/2 obesity hypoventilation syndrome and obstructive sleep apnea, and previous intubations for ARDS in 07/2021 and again in 06/2023. Unfortunately, patient reports that he recently started smoking cigarettes again, and over the past 2 to 3 days he has had progressive shortness of breath. He presented to [facility] on 02/26/2024 as been requiring 3-4 L via nasal cannula since admission. Pulmonary exam reveals slightly prolonged expiratory phase with scattered wheezing. CXR with linear opacities of the left lower lobe concerning for atelectasis versus edema versus atypical pneumonia. I suspect this is all likely a COPD exacerbation in the setting of recently resuming cigarettesmoking. Will continue therapies for COPD exacerbation with Solu-Medrol + DuoNebs 4 times daily + albuterol nebs as needed. Have also changed from azithromycin to levofloxacin for better pulmonary coverage of possible community-acquired pneumonia. Obesity hypoventilation and obstructive sleep apneaare almost certainly contributing a large role, as well. Will continue CPAP but could consider evaluation with store associate as outpatient and help determining whether BiPAP may be beneficial for this patient, as he does have chronic elevation of his CO2 at baseline. Counseled patient about absolute tobacco cessation, as well. Bilateral Lower Extremity Edema Patient has significant bilateral lower extremity edema. BNP was within normal limits, though thereis significant reduced sensitivity with this test in the setting of obesity. I do not suspect that heart failure is not at play here, but rather that this is likely secondary to continued/chronic [id number]. -Continue CPAP, as above -Consider outpatient evaluation for BiPAP to allow for increased CO2 exchange -Continue torsemide, as below Hypertension: Continue [employer] torsemide Hypothyroidism: Continue [employer] levothyroxine Obesity: Complicates cares Clinically Significant Risk Factors # Hypertension: Noted on problem list # Severe Obesity: Estimated body mass index is 55.06 kg/m?? as calculated from the following: Height as of this encounter: 1.829 m (6'). Weight as of this encounter: 184.2 kg (406 lb)., PRESENT ON ADMISSION # COPD: noted on problem list Diet: Orders Placed This Encounter Combination Diet Regular Diet Adult DVT Prophylaxis: Pneumatic Compression Devices Leyva: None Code Status: Full Code Medically Ready for Discharge: Anticipated in 2-4 Days The patient's care was discussed with the Bedside Nurse and Patient. I personally spent 45 minutes on chart review, documentation, coordination, and bedside management of patient. Marvin Castro MD, S Hospitalist Service [facility] Interval History Nursing notes reviewed. Patient continues to feel somewhat short of breath. He stated that his symptoms returned after recently starting tobacco use again. Denies any fevers, chills. He is not havingsignificant productive cough. A full 10+ point review of systems was performed and found to be negative with the exception of those items noted here. Physical Exam Temp: 98.2 ??F (36.8 ??C) Temp src: Axillary BP: 134/78 Pulse: 75 Resp: 17 SpO2: 91 % O2 Device: Nasal cannula Oxygen Delivery: 3 LPM Height: 182.9 cm (6') Weight: (!) 184.2 kg (406 lb) Estimated body mass index is 55.06 kg/m?? as calculated from the following: Height as of this encounter: 1.829 m (6'). Weight as of this encounter: 184.2 kg (406 lb). General: Very pleasant male sitting on side of hospital bed. Awake, alert, interactive. HEENT: Normocephalic, atraumatic. PERRL, EOMI. Conjunctiva clear, sclerae anicteric. Mucous membranes moist. Cardiac: Regular rate and rhythm without murmur, gallop, or rub. 2-3+ peripheral edema. Respiratory: Nasal cannula in place. Slightly increased work of breathing. Prolonged expiratory phase throughout with scattered wheeze. Musculoskeletal: Moving all extremities appropriately. Skin: No rashes or abrasions on exposed skin. Neurologic: Alert and oriented x4. Cranial nerves II through XII grossly intact. Psychologic: Appropriate mood and affect. Data All laboratory results and other diagnostic data from the past 24 hours is available in [facility] and has been personally reviewed. Recent Labs Lab 02/27/24 0625 02/26/24 1317 WBC 7.6 8.7 HGB 18.1* 18.2* MCV 96 93 PLT 208 208 NA 141 139 POTASSIUM 5.3 4.5 CHLORIDE 99 99 CO2 31* 32* BUN 21.5 17.2 CR 0.91 0.90 ANIONGAP 11 8 ZOFIA 9.3 9.4 GLC 125* 100* ALBUMIN -- 3.8 PROTTOTAL -- 7.7 BILITOTAL -- 2.2* ALKPHOS -- 90 ALT -- 14 AST -- 15 LIPASE -- 13 Imaging results reviewed over the past 24 hrs: No results found for this or any previous visit (from the past 24 hour(s)). I personally reviewed: no images or EKG's today. * Luis Smiley RT - 02/26/2024 10:38 PM CDT Respiratory Therapy Note Patient was placed on BiPAP for the night without issue. Skin checked with no signs of breakdown. RT to continue to monitor and assess during hospital stay. Oxygen Therapy: 10/03 40% RT Bhumika on 02/26/2024 at 10:41 PM * Vinh Ace RT - 02/26/2024 5:34 PM CDT [facility] RCAT Date: 02/26/2024 Admission Dx: Hypoxia Pulmonary History: COVID-19, Prior Intubation, SOB, AURA Home Nebulizer/MDI Use: Albuterol inhaler PRN Home Oxygen: None Acuity Level (RCAT flow sheet): 4 Aerosol Therapy initiated: N/A Pulmonary Hygiene initiated: Deep Breathing and Coughing Encouraged Volume Expansion initiated: Incentive Spirometer Current Oxygen Requirements: None (Room Air) Current SpO2: 92% Re-evaluation date: 02/29/2024 Patient Education: given See RT Assessments flow sheet for patient assessment scoring and Acuity Level Details. RT Shivani on 02/26/2024 at 5:36 PM documented in this encounter H&P Notes * Janee Stiles MD - 02/26/2024 3:41 PM CDT [facility] History and Physical Hospitalist Date of Admission: 02/26/2024 Date of Service (when I saw the patient): 02/26/24 Assessment & Plan Maury Huddleston is a 63 year old male patient with past medical history of hypertension, hypothyroidism, morbid obesity, probable COPD, prior history of prolonged hospitalization for ARDS/CAP/MSSA bacteremia, encephalopathy requiring intubation, prior intubation for COVID-19 pneumonia, obstructive sleep apnea on CPAP at night, history of alcohol dependence, came to emergency room for evaluation for shortness of breath. Patient states that he has been having progressive shortness of breath over thepast 2 days. He also had associated intermittent cough. He denies fever. He has mild leg swelling which has been chronic. His vital signs showed temperature 99.1, pulse 107, blood pressure 143/84, oxygen saturation 87% onroom air. Laboratory workup showed BNP 129 (normal), troponin T high-sensitivity 11. WBC 8.7, hemoglobin 18.2. Chest x-ray showed linear opacity in the left lung base which could represent atelectasis, pulmonary edema or atypical pneumonia. In emergency room, he was put on oxygen supplement. He was given DuoNeb, dexamethasone 10 mg IV, azithromycin 500 mg IV. Patient was admitted to the hospital for further management. Acute hypoxic respiratory failure secondary to possible COPD exacerbation Obesity hypoventilation syndrome He states that he is not on oxygen or steroids at home. Patient states that he had progressive shortness of breath over the past 3 days. He also had intermittent cough, wheezing. He was hypoxic on arrival to emergency room. Mildly tachycardic Chest x-ray showed left lung base opacity which could be atelectasis, pulmonary edema or atypical pneumonia -He was given dexamethasone 10 mg IV, DuoNeb, azithromycin 500 mg IV in the ER -Will continue DuoNeb -Will put him on prednisone 40 mg daily next dose tomorrow. -Will continue azithromycin -Will continue oxygen supplement -Continue CPAP at night Leg edema Doubt congestive heart failure. BNP normal. Chest x-ray showed left lung base opacity but no floridpulmonary edema. Last echocardiogram in 06/2023 showed normal left ventricular systolic function with EF of 51%. Reportedly he has not filled his torsemide for some months. -Resume torsemide 20 mg daily Hypertension Blood pressure slightly on the higher side. On torsemide. Will continue torsemide Obstructive sleep apnea -Uses CPAP at night. Will resume CPAP during sleep Hypothyroidism -Resume Synthroid Morbid obesity BMI 55.37 kg/m?? -Complicates cares DVT Prophylaxis: Pneumatic Compression Devices Code Status: Full Code Disposition: Expected discharge in 1-2 days. Janee Stiles MD Primary Care Physician [facility] Chief Complaint Shortness of breath, Chest pain History is obtained from the patient History of Present Illness Maury Huddleston is a 63 year old male patient with past medical history of hypertension, hypothyroidism, morbid obesity, obstructive sleep apnea on CPAP at night, history of alcohol dependence, came to emergency room for evaluation for shortness of breath. Patient states that he has been having progressive shortness of breath over the past 2 days. He also had associated intermittent cough. He deniesfever. He has mild leg swelling which has been chronic. He denies chest pain, nausea, vomiting, abdominal pain, dysuria, urgency or frequency. On arrival to emergency room, his vital signs were checked and showed temperature 99.1, pulse 107, blood pressure 143/84, oxygen saturation 87% on room air. Laboratory workup showed normal BMP, BNP 129 (normal), troponin T high- sensitivity 11. WBC 8.7, hemoglobin 18.2. Chest x-ray showed linear opacity in the left lung base which could represent atelectasis, pulmonary edema or atypical pneumonia. In emergency room, he was put on oxygen supplement. He was given DuoNeb, dexamethasone 10 mg IV, azithromycin 500 mg IV. Patient was admitted to the hospital for further management. Past Medical History I have reviewed this patient's medical history and updated it with pertinent information if needed. Past Medical History: Diagnosis Date Alcohol dependence (H) Hypertension Hypothyroidism Obesity AURA (obstructive sleep apnea) Past Surgical History I have reviewed this patient's surgical history and updated it with pertinent information if needed. No past surgical history on file. Prior to Admission Medications Prior to Admission Medications Prescriptions Last Dose Informant Patient Reported? Taking? QUEtiapine (SEROQUEL) 25 MG tablet No No Sig: Take 0.5 tablets (12.5 mg) by mouth nightly as needed (delirium or confusion.) albuterol (PROAIR HFA/PROVENTIL HFA/VENTOLIN HFA) 108 (90 Base) MCG/ACT inhaler No No Sig: Inhale 6 puffs into the lungs every 2 hours as needed for wheezing aspirin 81 MG EC tablet Yes No Sig: Take 81 mg by mouth daily gabapentin (NEURONTIN) 300 MG capsule Yes No Sig: Take 300 mg by mouth At Bedtime levothyroxine (SYNTHROID, LEVOTHROID) 50 MCG tablet No No Sig: Take 1 tablet by mouth every morning (before breakfast). sennosides (SENOKOT) 8.6 MG tablet No No Sig: Take 1 tablet by mouth daily as needed for constipation terazosin (HYTRIN) 2 MG capsule Yes No Sig: Take 2 mg by mouth At Bedtime tiotropium (SPIRIVA RESPIMAT) 2.5 MCG/ACT inhaler No No Sig: Inhale 2 puffs into the lungs daily torsemide (DEMADEX) 20 MG tablet No No Sig: Take 1 tablet (20 mg) by mouth daily vitamin D3 (CHOLECALCIFEROL) 50 mcg (2000 units) tablet Yes No Sig: Take 1 tablet by mouth daily Facility-Administered Medications: None Allergies Allergies Allergen Reactions Ancef [Cefazolin] Rash Social History I have reviewed this patient's social history and updated it with pertinent information if needed. Jay Jay Ries reports that he has been smoking. He has a 25 pack-year smoking history. He does not have any smokeless tobacco history on file. He reports current alcohol use of about 25.0 standard drinks of alcohol per week. He reports current drug use. Drug: Marijuana. Family History I have reviewed this patient's family history and updated it with pertinent information if needed. Family History Problem Relation Age of Onset Diabetes Type 2 Mother Per sister, Gloria - 10 to 15 years ago of renal failure after refusing dialysis Kidney failure Mother Myocardial Infarction Father at age 52 from [place] per sister Gloria Review of Systems The 10 point Review of Systems is negative other than noted in the HPI or here. Physical Exam Temp: 99.1 ??F (37.3 ??C) BP: 116/84 Pulse: 101 Resp: (!) 36 SpO2: 94 % O2 Device: None (Room air) Vital Signs with Ranges Temp: [99.1 ??F (37.3 ??C)] 99.1 ??F (37.3 ??C) Pulse: [85-107] 101 Resp: [36] 36 BP: (107-161)/(76-101) 116/84 SpO2: [87 %-96 %] 94 % 408 lbs 4.67 oz GEN: Alert, oriented x 3, appears comfortable, NAD. HEENT: Normocephalic/atraumatic, no scleral icterus, no nasal discharge, mouth moist. CV: Regular rate and rhythm, no murmur or JVD. S1 + S2 noted, no S3 or S4. LUNGS: Clear to auscultation bilaterally without rales/rhonchi/wheezing/retractions. Symmetric chest rise on inhalation noted. ABD: Active bowel sounds, soft, non-tender/non-distended. No rebound/guarding/rigidity. EXT: 1+ edema. Hands/feet warm to touch with good signs of peripheral perfusion. No joint synovitisnoted. SKIN: Dry to touch, no exanthems noted in the visualized areas. NEURO: Symmetric muscle strength, sensation to touch grossly intact. No new focal deficits appreciated. Data Data reviewed today: I personally reviewed no images or EKG's today. Recent Labs Lab 02/26/24 1317 WBC 8.7 HGB 18.2* MCV 93 PLT 208 NA 139 POTASSIUM 4.5 CHLORIDE 99 CO2 32* BUN 17.2 CR 0.90 ANIONGAP 8 ZOFIA 9.4 GLC 100* ALBUMIN 3.8 PROTTOTAL 7.7 BILITOTAL 2.2* ALKPHOS 90 ALT 14 AST 15 LIPASE 13 Recent Results (from the past 24 hour(s)) US Lower Extremity Venous Duplex Bilateral Narrative VENOUS ULTRASOUND BOTH LEGS 02/26/2024 2:38 PM HISTORY: leg swelling hypoxia dyspnea COMPARISON: None. FINDINGS: Examination of the deep veins with graded compression and color flow Doppler with spectral wave form analysis was performed. There is no evidence for deep venous or superficial venous thrombus in the lower extremities. Limited views of the calf veins due to body habitus. Impression IMPRESSION: No evidence of deep venous thrombosis. HERBERTH POLLARD MD XR Chest 2 Views Narrative XR CHEST 2 VIEWS 02/26/2024 2:46 PM HISTORY: dyspnea hypoxia COMPARISON: 08/09/2023 Impression IMPRESSION: Linear opacities in the left lung base may be due to atelectasis, pulmonary edema or atypical pneumonia. No pleural effusion or pneumothorax. Stable cardiomegaly and tortuous aortic arch ROSIO ANDERSON MD documented in this encounter ED Notes * Nini Keller RN - 02/26/2024 3:08 PM CDT [facility] ED Nurse Handoff Report ED Chief complaint: Shortness of Breath . ED Diagnosis: Final diagnoses: Dyspnea, unspecified type Hypoxia COPD with acute exacerbation (H) Allergies: Allergies Allergen Reactions Ancef [Cefazolin] Rash Code Status: Full Code Activity level - Baseline/Home: independent. Activity Level - Current: assist of 1. Lift room needed: No. Bariatric: Yes Tipple Oiler Needed: No Isolation: No. Infection: Not Applicable. Respiratory status: Nasal cannula Vital Signs (within 30 minutes): Vitals: 02/26/24 1350 02/26/24 1400 02/26/24 1450 02/26/24 1500 BP: (!) 150/101 (!) 161/96 (!) 147/96 116/84 Pulse: 85 89 98 101 Resp: Temp: SpO2: 94% 94% 96% 94% Weight: Height: Cardiac Rhythm: , Pain level: Patient confused: No. Patient Falls Risk: nonskid shoes/slippers when out of bed. Elimination Status: Has voided Patient Report - Initial Complaint: SOB. Focused Assessment: Maury Huddleston is a 63 year old male with a history of COPD and smoking who presents due to shortness of breath. For the past 2 days, patient reports not feeling as well as he usually does. He was experiencing shortness of breath, labored breathing, cough, feeling gargly, and lower extremity edema. Nothing comes up from the cough. He denies a fever, emesis, or diarrhea. Patient notes that he is usually in the low to mid-90s for oxygen saturation but has been in the 80s now. Hehas an oxygen machine he can use at home when needed. Patient wears a CPAP machine when sleeping and uses it every night. Abnormal Results: Labs Ordered and Resulted from Time of ED Arrival to Time of ED Departure COMPREHENSIVE METABOLIC PANEL - Abnormal Result Value Sodium 139 Potassium 4.5 Carbon Dioxide (CO2) 32 (*) Anion Gap 8 Urea Nitrogen 17.2 Creatinine 0.90 GFR Estimate >90 Calcium 9.4 Chloride 99 Glucose 100 (*) Alkaline Phosphatase 90 AST 15 ALT 14 Protein Total 7.7 Albumin 3.8 Bilirubin Total 2.2 (*) CBC WITH PLATELETS AND DIFFERENTIAL - Abnormal WBC Count 8.7 RBC Count 6.29 (*) Hemoglobin 18.2 (*) Hematocrit 58.6 (*) MCV 93 MCH 28.9 MCHC 31.1 (*) RDW 17.2 (*) Platelet Count 208 % Neutrophils 77 % Lymphocytes 10 % Monocytes 11 % Eosinophils 1 % Basophils 1 % Immature Granulocytes 0 NRBCs per 100 WBC 0 Absolute Neutrophils 6.8 Absolute Lymphocytes 0.9 Absolute Monocytes 0.9 Absolute Eosinophils 0.1 Absolute Basophils 0.1 Absolute Immature Granulocytes 0.0 Absolute NRBCs 0.0 TROPONIN T, HIGH SENSITIVITY - Normal Troponin T, High Sensitivity 11 NT PROBNP INPATIENT - Normal N terminal Pro BNP Inpatient 129 LIPASE - Normal Lipase 13 INFLUENZA A/B, RSV, & SARS-COV2 PCR - Normal Influenza A PCR Negative Influenza B PCR Negative RSV PCR Negative SARS CoV2 PCR Negative XR Chest 2 Views Final Result IMPRESSION: Linear opacities in the left lung base may be due to atelectasis, pulmonary edema or atypical pneumonia. No pleural effusion or pneumothorax. Stable cardiomegaly and tortuous aortic arch ROSIO ANDERSON MD US Lower Extremity Venous Duplex Bilateral Final Result IMPRESSION: No evidence of deep venous thrombosis. HERBERTH POLLARD MD Treatments provided: See MAR Family Comments: NA OBS brochure/video discussed/provided to patient: N/A ED Medications: Medications azithromycin 500 mg (ZITHROMAX) in 0.9% NaCl 250 mL intermittent infusion 500 mg (500 mg Intravenous $New Bag 02/26/24 1445) ipratropium - albuterol 0.5 mg/2.5 mg/3 mL (DUONEB) neb solution 3 mL (3 mLs Nebulization $Given 02/26/24 1318) dexAMETHasone PF (DECADRON) injection 10 mg (10 mg Intravenous $Given 02/26/24 1318) ipratropium - albuterol 0.5 mg/2.5 mg/3 mL (DUONEB) neb solution 3 mL (3 mLs Nebulization $Given 02/26/24 1445) Drips infusing: No For the majority of the shift this patient was Green. Interventions performed were NA. Sepsis treatment initiated: No Cares/treatment/interventions/medications to be completed following ED care: Abx, Oxygen ED Nurse Name: Pavithra Cm RN 3:08 PM RECEIVING UNIT ED HANDOFF REVIEW Above ED Nurse Handoff Report was reviewed: Yes Reviewed by: Nini Keller RN on February 26, 2024 at 4:13 PM I Artur called the ED to inform them the note was read: Yes * Shila Salinas RN - 02/26/2024 1:00 PM CDT Pt ambulatory into triage for SOB, lower extremity edema, and possible cellulitis. Hx of COPD. Is asmoker. Breathing labored in triage. Does have home O2 if he needs it. * Howard Rankin MD - 02/26/2024 12:55 PM CDT History Chief Complaint: Shortness of Breath HPI Maury Huddleston is a 63 year old male with a history of COPD and smoking who presents due to shortnessof breath. For the past 2 days, patient reports not feeling as well as he usually does. He was experiencing shortness of breath, labored breathing, cough, feeling gargly, and lower extremity edema. Nothing comes up from the cough. He denies a fever, emesis, or diarrhea. Patient notes that he is usually in the low to mid-90s for oxygen saturation but has been in the 80s now. He has an oxygen machine he can use at home when needed. Patient wears a CPAP machine when sleeping and uses it every night. Independent Historian: None - Patient Only Review of External Notes: I reviewed the discharge summary from 08/12/24 Medications: albuterol (PROAIR HFA/PROVENTIL HFA/VENTOLIN HFA) 108 (90 Base) MCG/ACT inhaler aspirin 81 MG EC tablet gabapentin (NEURONTIN) 300 MG capsule levothyroxine (SYNTHROID, LEVOTHROID) 50 MCG tablet QUEtiapine (SEROQUEL) 25 MG tablet sennosides (SENOKOT) 8.6 MG tablet terazosin (HYTRIN) 2 MG capsule tiotropium (SPIRIVA RESPIMAT) 2.5 MCG/ACT inhaler torsemide (DEMADEX) 20 MG tablet vitamin D3 (CHOLECALCIFEROL) 50 mcg (2000 units) tablet Past Medical History: Past Medical History: Diagnosis Date Alcohol dependence (H) Hypertension Hypothyroidism Obesity AURA (obstructive sleep apnea) Patient Active Problem List Diagnosis Syncope HTN (hypertension) Morbid obesity (H) Alcohol abuse Edema of both legs Cellulitis of leg Gram-positive bacteremia Obstructive sleep apnea Fever Acute respiratory failure with hypoxia and hypercapnia (H) Hypotension, unspecified hypotension type Adult failure to thrive Weakness Physical Exam Patient Vitals for the past 24 hrs: BP Temp Pulse Resp SpO2 Height Weight 02/26/24 1500 116/84 -- 101 -- 94 % -- -- 02/26/24 1450 (!) 147/96 -- 98 -- 96 % -- -- 02/26/24 1400 (!) 161/96 -- 89 -- 94 % -- -- 02/26/24 1350 (!) 150/101 -- 85 -- 94 % -- -- 02/26/24 1334 -- -- 103 -- 91 % -- -- 02/26/24 1331 -- -- 101 -- 90 % -- -- 02/26/24 1330 107/76 -- 100 -- -- -- -- 02/26/24 1300 -- -- -- -- -- 1.829 m (6') -- 02/26/24 1259 (!) 143/84 99.1 ??F (37.3 ??C) 107 (!) 36 (!) 87 % -- (!) 185.2 kg (408 lb 4.7 oz) Physical Exam Constitutional: Patient is chronically ill appearing in some respiratory distress. Head: Atraumatic. Mouth/Throat: Oropharynx is clear and moist. No oropharyngeal exudate. Eyes: Conjunctivae and EOM are normal. No scleral icterus. Neck: Normal range of motion. Neck supple. Cardiovascular: Normal rate, regular rhythm, normal heart sounds and intact distal perfusion. Pulmonary/Chest: Bronchial breath sounds with not pure wheeze more tone changing inspiratory and expiratory rhonchi without rales. Abdominal: Soft. Bowel sounds are normal. No distension. No tenderness. No rebound or guarding. Musculoskeletal: Normal range of motion. Bilateral lower extremity swelling nonpitting. No redness warmth or focal tenderness. Neurological: Alert and orientated to person, place, and time. No observable focal neuro deficit Skin: Warm and dry. No rash noted. Not diaphoretic. Emergency Department Course ECG ECG results from 02/26/24 EKG 12-lead, tracing only Value Systolic Blood Pressure Diastolic Blood Pressure Ventricular Rate 98 Atrial Rate 98 GA Interval 146 QRS Duration 86 QT 340 QTc 434 P Gary 61 R AXIS 69 T Gary 48 Interpretation ECG Sinus rhythm Normal ECG When compared with ECG of 13-JUL-2023 14:46, T wave inversion no longer evident in Inferior leads Nonspecific T wave abnormality no longer evident in Lateral leads Read by: Howard Rankin MD Imaging: XR Chest 2 Views Final Result IMPRESSION: Linear opacities in the left lung base may be due to atelectasis, pulmonary edema or atypical pneumonia. No pleural effusion or pneumothorax. Stable cardiomegaly and tortuous aortic arch ROSIO ANDERSON MD US Lower Extremity Venous Duplex Bilateral Final Result IMPRESSION: No evidence of deep venous thrombosis. HERBERTH POLLARD MD Report per radiology. Laboratory: Labs Ordered and Resulted from Time of ED Arrival to Time of ED Departure COMPREHENSIVE METABOLIC PANEL - Abnormal Result Value Sodium 139 Potassium 4.5 Carbon Dioxide (CO2) 32 (*) Anion Gap 8 Urea Nitrogen 17.2 Creatinine 0.90 GFR Estimate >90 Calcium 9.4 Chloride 99 Glucose 100 (*) Alkaline Phosphatase 90 AST 15 ALT 14 Protein Total 7.7 Albumin 3.8 Bilirubin Total 2.2 (*) CBC WITH PLATELETS AND DIFFERENTIAL - Abnormal WBC Count 8.7 RBC Count 6.29 (*) Hemoglobin 18.2 (*) Hematocrit 58.6 (*) MCV 93 MCH 28.9 MCHC 31.1 (*) RDW 17.2 (*) Platelet Count 208 % Neutrophils 77 % Lymphocytes 10 % Monocytes 11 % Eosinophils 1 % Basophils 1 % Immature Granulocytes 0 NRBCs per 100 WBC 0 Absolute Neutrophils 6.8 Absolute Lymphocytes 0.9 Absolute Monocytes 0.9 Absolute Eosinophils 0.1 Absolute Basophils 0.1 Absolute Immature Granulocytes 0.0 Absolute NRBCs 0.0 TROPONIN T, HIGH SENSITIVITY - Normal Troponin T, High Sensitivity 11 NT PROBNP INPATIENT - Normal N terminal Pro BNP Inpatient 129 LIPASE - Normal Lipase 13 INFLUENZA A/B, RSV, & SARS-COV2 PCR - Normal Influenza A PCR Negative Influenza B PCR Negative RSV PCR Negative SARS CoV2 PCR Negative Procedures Emergency Department Course & Assessments: Interventions: Medications azithromycin 500 mg (ZITHROMAX) in 0.9% NaCl 250 mL intermittent infusion 500 mg (500 mg Intravenous $New Bag 02/26/24 1445) ipratropium - albuterol 0.5 mg/2.5 mg/3 mL (DUONEB) neb solution 3 mL (3 mLs Nebulization $Given 02/26/24 1318) dexAMETHasone PF (DECADRON) injection 10 mg (10 mg Intravenous $Given 02/26/24 1318) ipratropium - albuterol 0.5 mg/2.5 mg/3 mL (DUONEB) neb solution 3 mL (3 mLs Nebulization $Given 02/26/24 1445) Independent Interpretation (X-rays, CTs, rhythm strip): I independently interpreted the chest x-ray and noted no pneumothorax, no pneumonia, no effusion, and no cardiomegaly Assessments/Consultations/Discussion of Management or Tests: ED Course as of 02/26/24 1525 Tue Feb 26, 2024 1314 I obtained history and examined the patient as noted above. 1326 I rechecked the patient and explained findings. We discussed plan for admission and patient isin agreement with plan. [address] Jimenez of the hospitalist team regarding the patient, who accepted the patient foradmission. Social Determinants of Health affecting care: None Disposition: The patient was admitted to the hospital under the care of Dr. Stiles. Impression & Plan [facility] Diagnoses: None Medical Decision Making: Maury Huddleston is a 63 year old male who presents for evaluation of shortness of breath and wheezing.Signs and symptoms are consistent with COPD exacerbation. A broad differential was considered including foreign body, asthma, reactive airway disease, pneumothorax, cardiac equivalent/ACS, viral induced wheezing, allergic phenomena, pneumonia, etc. Patient feels improved after interventions here inED but continues to have impairment in respiratory function . Given this and his high risk past, I will hospitalize for further intervention. There are no signs at this point of any other serious etiologies including those mentioned above especially acute coronary syndrome. I doubt this is ACS given the classic story of COPD exacerbation given by the patient, the marked wheezing without rales and a nonspecific EKG despite symptoms. EKG normal trop and BNP neg. No signs of pneumonia. Also lower extremities no DVT. All questions and concerns were answered. The patient was discharged home and recommended to followup with his primary physician and return with any new or worsening symptoms. Diagnosis: ICD-10-CM 1. Dyspnea, unspecified type R06.00 2. Hypoxia R09.02 3. COPD with acute exacerbation (H) J44.1 Discharge Medications: New Prescriptions No medications on file Scribe Disclosure: I, Ayan Akilah, am serving as a scribe at 1:05 PM on 02/26/2024 to document services personally performed by Howard Rankin MD, based on my observations and the provider's statements to me. 02/26/2024 Howard Rankin MD Stevens, Andrew C, MD 02/26/24 1525 documented in this encounter Miscellaneous Notes * Plan of Care - Abelardo Conrad RN - 03/03/2024 7:04 AM CDT Goal Outcome Evaluation: For vital signs and complete assessments, please see documentation flowsheets. [id number] Pertinent assessments: Pt A&Ox4. Ax1 in room. CPAP in place overnight. Afebrile. VSS. Denies pain, nausea, & SOB. PIV saline locked. Major Shift Events: none Treatment Plan: Nebs. O2 support-wean O2. Encourage activity as tolerated. Bedside Nurse: Abelardo Conrad RN Problem: Skin Injury Risk Increased Goal: Skin Health and Integrity Outcome: Progressing Intervention: Optimize Skin Protection Recent Flowsheet Documentation Taken 03/03/2024311 by Abelardo Conrad RN Head of Bed (HOB) Positioning: HOB at 20-30 degrees Problem: Gas Exchange Impaired Goal: Optimal Gas Exchange Outcome: Progressing Intervention: Optimize Oxygenation and Ventilation Recent Flowsheet Documentation Taken 03/03/2024311 by Abelardo Conrad RN Head of Bed (HOB) Positioning: HOB at 20-30 degrees Problem: Comorbidity Management Goal: Maintenance of COPD Symptom Control Outcome: Progressing Intervention: Maintain COPD Symptom Control Recent Flowsheet Documentation Taken 03/03/2024311 by Abelardo Conrad RN Medication Review/Management: medications reviewed Goal: Blood Pressure in Desired Range Outcome: Progressing Intervention: Maintain Blood Pressure Management Recent Flowsheet Documentation Taken 03/03/2024311 by Abelardo Conrad RN Medication Review/Management: medications reviewed Problem: Pneumonia Goal: Fluid Balance Outcome: Progressing * Plan of Care - Nehemiah Puri RN - 03/02/2024 10:16 PM CDT Assessments: A&Ox4. O2 sats around low 90s with 1L O2/nc. Uses CPAP at night. Denies pain. Up SBA. Trace BLEedema. Treatment Plan: nebs, steroid, O2 support, wean as able. Likely discharge tomorrow Bedside Nurse: Nehemiah Puri RN Problem: Skin Injury Risk Increased Goal: Skin Health and Integrity 03/02/20242215 by Nehemiah Puri RN Outcome: Progressing Intervention: Plan: Nurse Driven Intervention: Moisture Management Recent Flowsheet Documentation Taken 03/02/2024 1551 by Nehemiah Puri RN Moisture Interventions: Encourage regular toileting Intervention: Plan: Nurse Driven Intervention: Friction and Shear Recent Flowsheet Documentation Taken 03/02/2024 1551 by Nehemiah Puri RN Friction/Shear Interventions: HOB 30 degrees or less Intervention: Optimize Skin Protection Recent Flowsheet Documentation Taken 03/02/2024 1551 by Nehemiah Puri RN Activity Management: activity adjusted per tolerance Head of Bed (HOB) Positioning: HOB at 20 degrees Problem: Gas Exchange Impaired Goal: Optimal Gas Exchange 03/02/20242215 by Nehemiah Puri RN Outcome: Progressing Intervention: Optimize Oxygenation and Ventilation Recent Flowsheet Documentation Taken 03/02/2024 1551 by Nehemiah Puri RN Head of Bed (HOB) Positioning: HOB at 20 degrees Problem: Comorbidity Management Goal: Maintenance of COPD Symptom Control 03/02/20242215 by Nehemiah Puri RN Outcome: Progressing Intervention: Maintain COPD Symptom Control Recent Flowsheet Documentation Taken 03/02/2024 1551 by Nehemiah Puri RN Medication Review/Management: medications reviewed Goal: Blood Pressure in Desired Range 03/02/20242215 by Nehemiah Puri RN Outcome: Progressing Intervention: Maintain Blood Pressure Management Recent Flowsheet Documentation Taken 03/02/2024 1551 by Nehemiah Puri RN Medication Review/Management: medications reviewed Problem: Pneumonia Goal: Fluid Balance 03/02/20242215 by Nehemiah Puri RN Outcome: Progressing * Plan of Care - Jordana Javier RN - 03/02/2024 2:50 PM CDT Goal Outcome Evaluation: Pertinent assessments: A&Ox4. VSS. On RA. On 1L/NC. Sats 90-93%%. Uses CPAP at night.Denied SOB. Afebrile. Denies pain, PIV is saline locked. SBA. Ambulated to bathroom. Voiding without difficulties. On regular diet with good appetite. Started on IV Lasix Q6hrs. Major Shift Events: IV Lasix. PT consulted Treatment Plan: Oral Levaquin, Nebs. O2 supplement, Encourage activity as tolerated. Problem: Skin Injury Risk Increased Goal: Skin Health and Integrity Outcome: Progressing Intervention: Plan: Nurse Driven Intervention: Moisture Management Recent Flowsheet Documentation Taken 03/02/2024 0816 by Jordana Javier RN Moisture Interventions: Encourage regular toileting Taken 03/02/2024 0800 by Jordana Javier RN Moisture Interventions: (Change postion Indepedently. SBA) Encourage regular toileting Other (comment) Bathing/Skin Care: moisturizer applied Intervention: Plan: Nurse Driven Intervention: Friction and Shear Recent Flowsheet Documentation Taken 03/02/2024 0816 by Jordana Javier RN Friction/Shear Interventions: HOB 30 degrees or less Intervention: Optimize Skin Protection Recent Flowsheet Documentation Taken 03/02/2024 08 by Jordana Javier RN Activity Management: activity adjusted per tolerance Head of Bed (HOB) Positioning: HOB at 20 degrees Problem: Gas Exchange Impaired Goal: Optimal Gas Exchange Outcome: Progressing Intervention: Optimize Oxygenation and Ventilation Recent Flowsheet Documentation Taken 03/02/2024815 by Jordana Javier RN Head of Bed (HOB) Positioning: HOB at 20 degrees Problem: Comorbidity Management Goal: Maintenance of COPD Symptom Control Outcome: Progressing Intervention: Maintain COPD Symptom Control Recent Flowsheet Documentation Taken 03/02/2024815 by Jordana Javier RN Medication Review/Management: medications reviewed Goal: Blood Pressure in Desired Range Outcome: Progressing Intervention: Maintain Blood Pressure Management Recent Flowsheet Documentation Taken 03/02/2024815 by Jordana Javier RN Medication Review/Management: medications reviewed Problem: Pneumonia Goal: Fluid Balance Outcome: Progressing * Plan of Care - Abelardo Conrad RN - 03/02/2024 5:48 AM CDT Goal Outcome Evaluation: For vital signs and complete assessments, please see documentation flowsheets. [id number] Pertinent assessments: Pt A&Ox4. Ax1 in room. CPAP in place overnight. Afebrile. VSS. Denies pain, nausea, & SOB. PIV saline locked. Major Shift Events: none Treatment Plan: Oral Levaquin. Nebs. O2 support-wean O2. Encourage activity as tolerated. Bedside Nurse: Abelardo Conrad RN Problem: Skin Injury Risk Increased Goal: Skin Health and Integrity Outcome: Progressing Intervention: Optimize Skin Protection Recent Flowsheet Documentation Taken 03/02/2024 002 by Abelardo Conrad RN Head of Bed (HOB) Positioning: HOB at 20 degrees Problem: Gas Exchange Impaired Goal: Optimal Gas Exchange Outcome: Progressing Intervention: Optimize Oxygenation and Ventilation Recent Flowsheet Documentation Taken 03/02/2024 002 by Abelardo Conrad RN Head of Bed (HOB) Positioning: HOB at 20 degrees Problem: Comorbidity Management Goal: Maintenance of COPD Symptom Control Outcome: Progressing Intervention: Maintain COPD Symptom Control Recent Flowsheet Documentation Taken 03/02/2024 0020 by Abelardo Conrad RN Medication Review/Management: medications reviewed Goal: Blood Pressure in Desired Range Outcome: Progressing Intervention: Maintain Blood Pressure Management Recent Flowsheet Documentation Taken 03/02/2024 002 by Abelardo Conrad RN Medication Review/Management: medications reviewed Problem: Pneumonia Goal: Fluid Balance Outcome: Progressing * Plan of Care - Carin Godfrey RN - 03/01/2024 11:15 PM CDT Problem: Skin Injury Risk Increased Goal: Skin Health and Integrity 03/01/20242315 by Carin Godfrey RN Outcome: Progressing 03/01/20242314 by Carin Godfrey RN Outcome: Progressing 03/01/20242314 by Carin Godfrey RN Outcome: Progressing Intervention: Plan: Nurse Driven Intervention: Moisture Management Recent Flowsheet Documentation Taken 03/01/2024 160 by Carin Godfrey RN Moisture Interventions: Encourage regular toileting Intervention: Plan: Nurse Driven Intervention: Friction and Shear Recent Flowsheet Documentation Taken 03/01/2024 160 by Carin Godfrey RN Friction/Shear Interventions: HOB 30 degrees or less Intervention: Optimize Skin Protection Recent Flowsheet Documentation Taken 03/01/2024 160 by Carin Godfrey RN Activity Management: up in chair Problem: Gas Exchange Impaired Goal: Optimal Gas Exchange 03/01/20242315 by Cairn Godfrey RN Outcome: Progressing 03/01/20242314 by Carin Godfrey RN Outcome: Progressing 03/01/20242314 by Carin Godfrey RN Outcome: Progressing Problem: Comorbidity Management Goal: Maintenance of COPD Symptom Control 03/01/20242315 by Carin Godfrey RN Outcome: Progressing 03/01/20242314 by Carin Godfrey RN Outcome: Progressing 03/01/20242314 by Carin Godfrey RN Outcome: Progressing Intervention: Maintain COPD Symptom Control Recent Flowsheet Documentation Taken 03/01/2024 1606 by Carin Godfrey RN Medication Review/Management: medications reviewed Goal: Blood Pressure in Desired Range 03/01/20242315 by Carin Godfrey RN Outcome: Progressing 03/01/2024 2315 by Carin Godfrey RN Outcome: Progressing 03/01/2024 2315 by Carin Godfrey RN Outcome: Progressing Intervention: Maintain Blood Pressure Management Recent Flowsheet Documentation Taken 03/01/2024 1606 by Carin Godfrey RN Medication Review/Management: medications reviewed Problem: Pneumonia Goal: Fluid Balance 03/01/2024 2316 by Carin Godfrey RN Outcome: Progressing 03/01/2024 2315 by Carin Godfrey RN Outcome: Progressing 03/01/2024 2315 by Carin Godfrey RN Outcome: Progressing Intervention: Monitor and Manage Fluid Balance Recent Flowsheet Documentation Taken 03/01/2024 1606 by Carin Godfrey RN Fluid/Electrolyte Management: fluids provided Goal Outcome Evaluation: Up in chair for supper. Oxygen 3l nc. Cpap at HS. Amb in [place] with assist of one. Denies pain. * Plan of Care - Jordana Javier RN - 03/01/2024 2:42 PM CDT Goal Outcome Evaluation: Pertinent assessments: A&Ox4, VSS. On 3L/NC. Sats 90-93%. Denied SOB or N/V. Assist x1 to bathroom. Refuses to use a walker. Switch to IV lasix. Titrated down 3L. On regular diet & appetite is good. Up in chair this shift. Major Shift Events : IV lasix, Wean off to 3L/NC Treatment Plan: IV lasix, Levaquin, wean O2, Duo nebs Problem: Skin Injury Risk Increased Goal: Skin Health and Integrity 03/01/2024 1443 by Jordana Javier RN Outcome: Progressing 03/01/2024 1443 by Jordana Javier RN Outcome: Progressing 03/01/2024 1442 by Jordana Javier RN Outcome: Progressing Intervention: Plan: Nurse Driven Intervention: Moisture Management Recent Flowsheet Documentation Taken 03/01/2024 0849 by Jordana Javier RN Moisture Interventions: Encourage regular toileting Taken 03/01/2024 0800 by Jordana Javier RN Moisture Interventions: Encourage regular toileting Bathing/Skin Care: bath, partial Intervention: Plan: Nurse Driven Intervention: Friction and Shear Recent Flowsheet Documentation Taken 03/01/2024 0849 by Jordana Javier RN Friction/Shear Interventions: HOB 30 degrees or less Intervention: Optimize Skin Protection Recent Flowsheet Documentation Taken 03/01/2024 0831 by Jordana Javier RN Activity Management: activity adjusted per tolerance Problem: Gas Exchange Impaired Goal: Optimal Gas Exchange 03/01/2024 1443 by Jordana Javier RN Outcome: Progressing 03/01/2024 1443 by Jordana Javier RN Outcome: Progressing 03/01/2024 1442 by Jordana Javier RN Outcome: Progressing Problem: Comorbidity Management Goal: Maintenance of COPD Symptom Control 03/01/2024 1443 by Jordana Javier RN Outcome: Progressing 03/01/2024 1443 by Jordana Javier, KADEN Outcome: Progressing 03/01/2024 1442 by Jordana Javier RN Outcome: Progressing Intervention: Maintain COPD Symptom Control Recent Flowsheet Documentation Taken 03/01/2024 0849 by Jordana Javier RN Medication Review/Management: medications reviewed Goal: Blood Pressure in Desired Range 03/01/2024 1443 by Jordana Javier RN Outcome: Progressing 03/01/2024 1443 by Jordana Javier RN Outcome: Progressing 03/01/2024 1442 by Jordana Javier RN Outcome: Progressing Intervention: Maintain Blood Pressure Management Recent Flowsheet Documentation Taken 03/01/2024 0849 by Jordana Javier RN Medication Review/Management: medications reviewed Problem: Pneumonia Goal: Fluid Balance 03/01/2024 1443 by Jordana Javier RN Outcome: Progressing 03/01/2024 1443 by Jordana Javier RN Outcome: Progressing 03/01/2024 1442 by Jordana Javier RN Outcome: Progressing * Plan of Care - Abelardo Conrad RN - 03/01/2024 5:52 AM CDT For vital signs and complete assessments, please see documentation flowsheets. [id number] Pertinent assessments: Pt A&Ox4. Ax1 in room. CPAP in place overnight. Afebrile. VSS. Denies pain, nausea, & SOB. No IV access. Major Shift Events: none Treatment Plan: Oral Levaquin. Nebs. O2 support. Encourage activity as tolerated. Bedside Nurse: Abelardo Conrad RN Problem: Skin Injury Risk Increased Goal: Skin Health and Integrity Outcome: Progressing Intervention: Optimize Skin Protection Recent Flowsheet Documentation Taken 03/01/2024212 by Abelardo Conrad RN Head of Bed (HOB) Positioning: HOB at 20-30 degrees Problem: Gas Exchange Impaired Goal: Optimal Gas Exchange Outcome: Progressing Intervention: Optimize Oxygenation and Ventilation Recent Flowsheet Documentation Taken 03/01/2024212 by Abelardo Conrad RN Head of Bed (HOB) Positioning: HOB at 20-30 degrees Problem: Comorbidity Management Goal: Maintenance of COPD Symptom Control Outcome: Progressing Intervention: Maintain COPD Symptom Control Recent Flowsheet Documentation Taken 03/01/2024212 by Abelardo Conrad RN Medication Review/Management: medications reviewed Goal: Blood Pressure in Desired Range Outcome: Progressing Intervention: Maintain Blood Pressure Management Recent Flowsheet Documentation Taken 03/01/2024212 by Abelardo Conrad RN Medication Review/Management: medications reviewed Problem: Pneumonia Goal: Fluid Balance Outcome: Progressing Goal: Resolution of Infection Signs and Symptoms Outcome: Progressing Goal: Effective Oxygenation and Ventilation Outcome: Progressing Intervention: Promote Airway Secretion Clearance Recent Flowsheet Documentation Taken 03/01/2024212 by Abelardo Conrad RN Cough And Deep Breathing: done independently per patient Intervention: Optimize Oxygenation and Ventilation Recent Flowsheet Documentation Taken 03/01/2024212 by Abelardo Conrad RN Head of Bed (HOB) Positioning: HOB at 20-30 degrees * Plan of Care - Nehemiah Puri RN - 02/29/2024 11:24 PM CDT Assessments: A&Ox4, up SBA. Uses CPAP with naps and bedtime. Used 6L/nc while awake. Denies pain or nausea, some sob with exertion. 2+ ble edema. Treatment Plan: monitor respiratory status, hopeful discharge tomorrow Bedside Nurse: Nehemiah Puri RN Problem: Skin Injury Risk Increased Goal: Skin Health and Integrity 02/29/20242323 by Nehemiah Puri RN Outcome: Progressing 02/29/20242322 by Nehemiah Puri RN Outcome: Progressing Intervention: Plan: Nurse Driven Intervention: Moisture Management Recent Flowsheet Documentation Taken 02/29/2024 170 by Nehemiah Puri RN Moisture Interventions: Encourage regular toileting Intervention: Optimize Skin Protection Recent Flowsheet Documentation Taken 02/29/20241699 by Nehemiah Puri RN Activity Management: activity adjusted per tolerance Head of Bed (HOB) Positioning: HOB at 20-30 degrees Problem: Gas Exchange Impaired Goal: Optimal Gas Exchange 02/29/20242323 by Nehemiah Puri RN Outcome: Progressing 02/29/20242322 by Nehemiah Puri RN Outcome: Progressing Intervention: Optimize Oxygenation and Ventilation Recent Flowsheet Documentation Taken 02/29/20241699 by Nehemiah Puri RN Head of Bed (HOB) Positioning: HOB at 20-30 degrees Problem: Comorbidity Management Goal: Maintenance of COPD Symptom Control 02/29/20242323 by Nehemiah Puri RN Outcome: Progressing 02/29/20242322 by Nehemiah Puri RN Outcome: Progressing Intervention: Maintain COPD Symptom Control Recent Flowsheet Documentation Taken 02/29/2024 170 by Nehemiah Puri RN Medication Review/Management: medications reviewed Goal: Blood Pressure in Desired Range 02/29/20242323 by Nehemiah Puri RN Outcome: Progressing 02/29/20242322 by Nehemiah Puri RN Outcome: Progressing Intervention: Maintain Blood Pressure Management Recent Flowsheet Documentation Taken 02/29/2024 1700 by Nehemiah Puri RN Medication Review/Management: medications reviewed Problem: Pneumonia Goal: Fluid Balance 02/29/20242323 by Nehemiah Puri RN Outcome: Progressing 02/29/20242322 by Nehemiah Puri RN Outcome: Progressing Goal: Resolution of Infection Signs and Symptoms 02/29/20242323 by Nehemiah Puri RN Outcome: Progressing 02/29/20242322 by Nehemiah Puri RN Outcome: Progressing Intervention: Prevent Infection Progression Recent Flowsheet Documentation Taken 02/29/20241699 by Nehemiah Puri RN Isolation Precautions: contact precautions maintained Goal: Effective Oxygenation and Ventilation 02/29/20242323 by Nehemiah Puri RN Outcome: Progressing 02/29/20242322 by Nehemiah Puri RN Outcome: Progressing Intervention: Promote Airway Secretion Clearance Recent Flowsheet Documentation Taken 02/29/20241699 by Nehemiah Puri RN Cough And Deep Breathing: done independently per patient Intervention: Optimize Oxygenation and Ventilation Recent Flowsheet Documentation Taken 02/29/20241699 by Nehemiah Puri RN Head of Bed (HOB) Positioning: HOB at 20-30 degrees * Plan of Care - Kaela Oden RN - 02/29/2024 7:44 AM CDT Pertinent assessments: Pt A&O, slightly elevated BP, scheduled BP meds given, Bi-pap @ HS. BLE kaci, +2 edema. Up to void x 1 Major Shift Events: uneventful Treatment Plan: IV Levaquin, solu-medrol, wean O2, Duo nebs Problem: Adult Inpatient Plan of Care Goal: Absence of Hospital-Acquired Illness or Injury Intervention: Prevent Skin Injury Recent Flowsheet Documentation Taken 02/28/20242106 by Kaela Oden RN Body Position: position changed independently right side-lying Intervention: Prevent and Manage VTE (Venous Thromboembolism) Risk Recent Flowsheet Documentation Taken 02/28/20242209 by Kaela Oden RN VTE Prevention/Management: SCDs (sequential compression devices) off patient refused intervention Intervention: Prevent Infection Recent Flowsheet Documentation Taken 02/28/2024 2210 by Kaela Oden RN Infection Prevention: cohorting utilized hand hygiene promoted rest/sleep promoted Goal Outcome Evaluation: * Plan of Care - Nini Keller RN - 02/28/2024 6:04 PM CDT Goal Outcome Evaluation: End of Shift Summary For vital signs and complete assessments, please see documentation flowsheets. Pertinent assessments: Pt A&OX4. Vss with and on 5L and weaned to 3L NC. LS dim. Tolerated dietand no nausea reported. Denied pain. BLE edema +2. Had a shower.New PIV placed on Left fore arm. Major Shift Events :Monitor respiratory symptoms. Treatment Plan: IV levaquin, IV solumedrol, IV Lasix, monitor respiratory symptoms. Problem: Skin Injury Risk Increased Goal: Skin Health and Integrity Outcome: Progressing Intervention: Plan: Nurse Driven Intervention: Moisture Management Recent Flowsheet Documentation Taken 02/28/2024 08 by Nini Keller RN Moisture Interventions: Encourage regular toileting Bathing/Skin Care: linen changed incontinence care bath, complete Intervention: Optimize Skin Protection Recent Flowsheet Documentation Taken 02/28/2024 08 by Nini Keller RN Activity Management: activity adjusted per tolerance Head of Bed (HOB) Positioning: HOB at 20-30 degrees Problem: Gas Exchange Impaired Goal: Optimal Gas Exchange Outcome: Progressing Intervention: Optimize Oxygenation and Ventilation Recent Flowsheet Documentation Taken 02/28/2024 08 by Nini Keller RN Head of Bed (HOB) Positioning: HOB at 20-30 degrees Problem: Comorbidity Management Goal: Maintenance of COPD Symptom Control Outcome: Progressing Intervention: Maintain COPD Symptom Control Recent Flowsheet Documentation Taken 02/28/2024 08 by Nini Keller RN Medication Review/Management: medications reviewed Goal: Blood Pressure in Desired Range Outcome: Progressing Intervention: Maintain Blood Pressure Management Recent Flowsheet Documentation Taken 02/28/2024 08 by Nini Keller RN Medication Review/Management: medications reviewed Problem: Pneumonia Goal: Fluid Balance Outcome: Progressing Goal: Resolution of Infection Signs and Symptoms Outcome: Progressing Goal: Effective Oxygenation and Ventilation Outcome: Progressing Intervention: Promote Airway Secretion Clearance Recent Flowsheet Documentation Taken 02/28/2024 08 by Nini Keller RN Cough And Deep Breathing: done independently per patient Intervention: Optimize Oxygenation and Ventilation Recent Flowsheet Documentation Taken 02/28/2024 08 by Nini Keller RN Head of Bed (HOB) Positioning: HOB at 20-30 degrees wean O2 as able, Duonebs, Bipap at Noc. Bedside Nurse: Nini Keller RN * Plan of Care - Ratna Carbone RN - 02/28/2024 6:41 AM CDT End of Shift Summary For vital signs and complete assessments, please see documentation flowsheets. Pertinent assessments: Pt on 3- 4L NC, BiPAP overnight. LS with exp wheezing. Denied pain. BLE edema +3. Pt rested most of shift Major Shift Events :Monitor respiratory symptoms. Treatment Plan: IV levaquin, IV solumedrol, wean O2 as able, Duonebs, BiPAP at night Bedside Nurse: Ratna Carbone RN Goal Outcome Evaluation: Problem: Skin Injury Risk Increased Goal: Skin Health and Integrity Outcome: Progressing Intervention: Plan: Nurse Driven Intervention: Moisture Management Recent Flowsheet Documentation Taken 02/27/20242146 by Ratna Carbone RN Moisture Interventions: Encourage regular toileting Intervention: Optimize Skin Protection Recent Flowsheet Documentation Taken 02/27/20242146 by Ratna Carbone RN Activity Management: activity adjusted per tolerance Head of Bed (HOB) Positioning: HOB at 20-30 degrees Problem: Comorbidity Management Goal: Maintenance of COPD Symptom Control Outcome: Progressing Problem: Pneumonia Goal: Fluid Balance Outcome: Progressing Goal: Resolution of Infection Signs and Symptoms Outcome: Progressing Problem: Gas Exchange Impaired Goal: Optimal Gas Exchange Outcome: Not Progressing Intervention: Optimize Oxygenation and Ventilation Recent Flowsheet Documentation Taken 02/27/20242146 by Ratna Carbone RN Head of Bed (HOB) Positioning: HOB at 20-30 degrees Problem: Comorbidity Management Goal: Blood Pressure in Desired Range Outcome: Not Progressing Problem: Pneumonia Goal: Effective Oxygenation and Ventilation Outcome: Not Progressing Intervention: Optimize Oxygenation and Ventilation Recent Flowsheet Documentation Taken 02/27/20242146 by Ratna Carbone RN Head of Bed (HOB) Positioning: HOB at 20-30 degrees * Plan of Care - Nini Keller RN - 02/27/2024 6:36 PM CDT Goal Outcome Evaluation: End of Shift Summary For vital signs and complete assessments, please see documentation flowsheets. Pertinent assessments: Pt A&OX4. Vss with and on 3- 4L NC. LS with exp wheezing. Tolerated dietand no nausea reported. Denied pain. BLE edema +2. Incontinent episode x2. Major Shift Events :Monitor respiratory symptoms. Treatment Plan: IV levaquin, IV solumedrol, wean O2 as able, Duonebs, CPAP at [facility]. Bedside Nurse: Nini Keller RN Problem: Skin Injury Risk Increased Goal: Skin Health and Integrity 02/27/20241836 by Nini Keller RN Outcome: Progressing 02/27/20241835 by Nini Keller RN Outcome: Progressing Intervention: Plan: Nurse Driven Intervention: Moisture Management Recent Flowsheet Documentation Taken 02/27/2024 08 by Nini Keller RN Moisture Interventions: Encourage regular toileting Intervention: Optimize Skin Protection Recent Flowsheet Documentation Taken 02/27/2024 08 by Nini Keller RN Activity Management: activity adjusted per tolerance ambulated to bathroom Head of Bed (HOB) Positioning: HOB at 20-30 degrees Problem: Gas Exchange Impaired Goal: Optimal Gas Exchange 02/27/20241836 by Nini Keller RN Outcome: Progressing 02/27/20241835 by Niin Keller RN Outcome: Progressing Intervention: Optimize Oxygenation and Ventilation Recent Flowsheet Documentation Taken 02/27/2024 0800 by Nini Keller RN Head of Bed (HOB) Positioning: HOB at 20-30 degrees Problem: Comorbidity Management Goal: Maintenance of COPD Symptom Control 02/27/20241836 by Nini Keller RN Outcome: Progressing 02/27/20241835 by Nini Keller RN Outcome: Progressing Intervention: Maintain COPD Symptom Control Recent Flowsheet Documentation Taken 02/27/2024 08 by Nini Keller RN Medication Review/Management: medications reviewed Goal: Blood Pressure in Desired Range 02/27/20241836 by Nini Keller RN Outcome: Progressing 02/27/20241835 by Nini Keller RN Outcome: Progressing Intervention: Maintain Blood Pressure Management Recent Flowsheet Documentation Taken 02/27/2024 08 by Nini Keller RN Medication Review/Management: medications reviewed Problem: Pneumonia Goal: Fluid Balance Outcome: Progressing Goal: Resolution of Infection Signs and Symptoms Outcome: Progressing Goal: Effective Oxygenation and Ventilation Outcome: Progressing Intervention: Promote Airway Secretion Clearance Recent Flowsheet Documentation Taken 02/27/2024 08 by Nini Keller RN Cough And Deep Breathing: done independently per patient Intervention: Optimize Oxygenation and Ventilation Recent Flowsheet Documentation Taken 02/27/2024 08 by Nini Keller RN Head of Bed (HOB) Positioning: HOB at 20-30 degrees * Plan of Care - Ratna Carbone RN - 02/27/2024 7:05 AM CDT End of Shift Summary For vital signs and complete assessments, please see documentation flowsheets. Pertinent assessments: Pt A&OX4. 5L NC while awake, BiPAP 45 FiO2 at night while resting [id number]. LS with exp wheezing. Denied pain. BLE edema +2. Incontinent of bladder x1 on shift. Major Shift Events : None Treatment Plan: Duonebs, monitor O2 Bedside Nurse: Ratna Carbone RN Goal Outcome Evaluation: Problem: Skin Injury Risk Increased Goal: Skin Health and Integrity 02/27/2024 07 by Ratna Carbone RN Outcome: Progressing 02/27/2024704 by Ratna Carbone RN Outcome: Progressing Intervention: Optimize Skin Protection Recent Flowsheet Documentation Taken 02/26/20242118 by Ratna Carbone RN Activity Management: activity adjusted per tolerance Head of Bed (HOB) Positioning: HOB at 20-30 degrees Problem: Comorbidity Management Goal: Blood Pressure in Desired Range 02/27/2024704 by Ratna Carbone RN Outcome: Progressing 02/27/2024704 by Ratna Carbone RN Outcome: Progressing Intervention: Maintain Blood Pressure Management Recent Flowsheet Documentation Taken 02/26/20242118 by Ratna Carbone RN Medication Review/Management: medications reviewed Problem: Gas Exchange Impaired Goal: Optimal Gas Exchange 02/27/2024704 by Ratna Carbone RN Outcome: Not Progressing 02/27/2024704 by Ratna Carbone RN Outcome: Not Progressing Intervention: Optimize Oxygenation and Ventilation Recent Flowsheet Documentation Taken 02/26/20242118 by Ratna Carbone RN Head of Bed (HOB) Positioning: HOB at 20-30 degrees Problem: Comorbidity Management Goal: Maintenance of COPD Symptom Control 02/27/2024704 by Ratna Carbone RN Outcome: Not Progressing 02/27/2024704 by Ratna Carbone RN Outcome: Not Progressing Intervention: Maintain COPD Symptom Control Recent Flowsheet Documentation Taken 02/26/20242118 by Ratna Carbone RN Medication Review/Management: medications reviewed * Plan of Care - Nini Keller RN - 02/26/2024 6:55 PM CDT Goal Outcome Evaluation: End of Shift Summary For vital signs and complete assessments, please see documentation flowsheets. Pertinent assessments: Pt A&OX4. Vss with Bp elevated and on 4L NC. LS with exp wheezing. Tolerated diet and no nausea reported. Denied pain. BLE edema +2. Major Shift Events :Admitted to the unit. Treatment Plan: Duonebs,monitor O2, CPAP at [facility]. Bedside Nurse: Nini Keller RN Overall Patient Progress: no changeOverall Patient Progress: no change Outcome Evaluation: Pt came up to the unit and put on 5L NC on CPAP at [facility]. Problem: Adult Inpatient Plan of Care Goal: Plan of Care Review Description: The Plan of Care Review/Shift note should be completed every shift. The Outcome Evaluation is a brief statement about your assessment that the patient is improving, declining, or no change. This information will be displayed automatically on your shift note. Outcome: Met Flowsheets (Taken 02/26/2024 1731) Outcome Evaluation: Pt came up to the unit and put on 5L NC on CPAP at [facility]. Overall Patient Progress: no change Goal: Patient-Specific Goal (Individualized) Description: You can add care plan individualizations to a care plan. Examples of Individualizationmight be: Parent requests to be called daily at 9am for status, I have a hard time hearing out of my right ear, or Do not touch me to wake me up as it startles me. Outcome: Met Goal: Absence of Hospital-Acquired Illness or Injury Outcome: Met Intervention: Identify and Manage Fall Risk Recent Flowsheet Documentation Taken 02/26/2024 1700 by Nini Keller RN Safety Promotion/Fall Prevention: activity supervised clutter free environment maintained increased rounding and observation nonskid shoes/slippers when out of bed Intervention: Prevent Skin Injury Recent Flowsheet Documentation Taken 02/26/2024 1700 by Nini Keller RN Body Position: position changed independently Intervention: Prevent and Manage VTE (Venous Thromboembolism) Risk Recent Flowsheet Documentation Taken 02/26/2024 1700 by Nini Keller RN VTE Prevention/Management: SCDs (sequential compression devices) off Goal: Optimal Comfort and Wellbeing Outcome: Met Goal: Readiness for Transition of Care Outcome: Met Intervention: Mutually Develop Transition Plan Recent Flowsheet Documentation Taken 02/26/2024 1658 by Nini Keller RN Equipment Currently Used at Home: none Problem: Comorbidity Management Goal: Maintenance of Asthma Control Outcome: Met Intervention: Maintain Asthma Symptom Control Recent Flowsheet Documentation Taken 02/26/2024 1700 by Nini Keller RN Medication Review/Management: medications reviewed Goal: Maintenance of COPD Symptom Control Outcome: Met Intervention: Maintain COPD Symptom Control Recent Flowsheet Documentation Taken 02/26/2024 1700 by Nini Keller RN Medication Review/Management: medications reviewed Problem: Gas Exchange Impaired Goal: Optimal Gas Exchange Outcome: Met Intervention: Optimize Oxygenation and Ventilation Recent Flowsheet Documentation Taken 02/26/2024 1700 by Nini Keller RN Head of Bed (HOB) Positioning: HOB at 20-30 degrees Problem: Pneumonia Goal: Fluid Balance Outcome: Met Goal: Resolution of Infection Signs and Symptoms Outcome: Met Goal: Effective Oxygenation and Ventilation Outcome: Met Intervention: Promote Airway Secretion Clearance Recent Flowsheet Documentation Taken 02/26/2024 1700 by Nini Keller RN Cough And Deep Breathing: done independently per patient Intervention: Optimize Oxygenation and Ventilation Recent Flowsheet Documentation Taken 02/26/2024 1700 by Nini Keller RN Head of Bed (HOB) Positioning: HOB at 20-30 degrees * Pharmacy-Admission Medication History - Joel Bauman RPH - 02/26/2024 6:50 PM CDT Pharmacist Admission Medication History Admission medication history is complete. The information provided in this note is only as accurateas the sources available at the time of the update. Information Source(s): Patient, Family member, and CareEverywhere/SureScripts via in-person Pertinent Information: - Patient ran out of torsemide 20 mg daily a few months ago so the entry was deleted from the med list. - Spiriva Respimat was prescribed 2 puffs daily but patient only takes 1 puff daily. Changes made to [employer] medication list: Added: Tylenol Deleted: torsemide 20 mg daily; quetiapine 12.5 mg HS PRN Changed: tiotropium 2 puffs -> 1 puff Allergies reviewed with patient and updates made in EHR: yes Medication History Completed By: Joel Bauman RPH 02/26/2024 6:50 PM [employer] Med List Medication Sig Last Dose acetaminophen (TYLENOL) 325 MG tablet Take 325 mg by mouth daily 02/26/2024 at am albuterol (PROAIR HFA/PROVENTIL HFA/VENTOLIN HFA) 108 (90 Base) MCG/ACT inhaler Inhale 6 puffs intothe lungs every 2 hours as needed for wheezing Unknown at PRN aspirin 81 MG EC tablet Take 81 mg by mouth daily 02/26/2024 at am gabapentin (NEURONTIN) 300 MG capsule Take 300 mg by mouth At Bedtime 02/25/2024 at hs levothyroxine (SYNTHROID, LEVOTHROID) 50 MCG tablet Take 1 tablet by mouth every morning (before breakfast). 02/26/2024 at am sennosides (SENOKOT) 8.6 MG tablet Take 1 tablet by mouth daily as needed for constipation Unknown at PRN terazosin (HYTRIN) 2 MG capsule Take 2 mg by mouth At Bedtime 02/25/2024 at hs tiotropium (SPIRIVA RESPIMAT) 2.5 MCG/ACT inhaler Inhale 1 puff into the lungs daily 02/26/2024 at am vitamin D3 (CHOLECALCIFEROL) 50 mcg (2000 units) tablet Take 1 tablet by mouth daily 02/26/2024 at am documented in this encounter Plan of Treatment Scheduled Referrals Name Type Priority Associated Diagnoses Orde r Schedule Adult Pulmonary Medicine [employer] Referral Referral Routine: Next available opening COPD with acute exacerbation (H) Expected: 03/03/2024 (Approximate), Expires: 03/03/2025 documented as of this encounter Procedures Procedure Name Priority Date/Time Associated Diagnosis Comments BASIC METABOLIC PANEL STAT 03/03/2024 9:21 AM CDT CBC WITH PLATELETS STAT 03/03/2024 9: 21 AM CDT BASIC METABOLIC PANEL STAT 03/02/2024 9:52 AM CDT CBC WITH PLATELETS STAT 03/02/2024 9: 52 AM CDT D DIMER QUANTITATIVE STAT 03/01/2024 10:10 AM CDT BASIC METABOLIC PANEL Routine 03/01/2024 8:06 AM CDT BASIC METABOLIC PANEL Routine 02/29/2024 7:29 AM CDT CBC WITH PLATELETS Routine 02/29/2024 7: 29 AM CDT BASIC METABOLIC PANEL Routine 02/27/2024 6:25 AM CDT CBC WITH PLATELETS Routine 02/27/2024 6: 25 AM CDT XR CHEST 2 VIEWS STAT 02/26/2024 2:46 PM CDT US LOWER EXTREMITY VENOUS DUPLEX BILATERAL STAT 02/26/2024 2:38 PM CDT INFLUENZA A/B, RSV, & SARS-COV2 PCR STAT 02/26/2024 1:18 PM CDT EXTRA HEPARINIZED SYRINGE STAT 02/26/2024 1:17 PM CDT EXTRA TUBE STAT 02/26/2024 1:17 PM CDT EXTRA RED TOP TUBE STAT 02/26/2024 1: 17 PM CDT CBC WITH PLATELETS AND DIFFERENTIAL STAT 02/26/2024 1:17 PM CDT TROPONIN T, HIGH SENSITIVITY STAT 02/26/2024 1:17 PM CDT CBC WITH PLATELETS & DIFFERENTIAL STAT 02/26/2024 1:17 PM CDT NT PROBNP INPATIENT STAT 02/26/2024 1 :17 PM CDT LIPASE STAT 02/26/2024 1:17 PM CDT COMPREHENSIVE METABOLIC PANEL STAT 02/26/2024 1:17 PM CDT EKG 12-LEAD, TRACING ONLY STAT 02/26/2024 1:15 PM CDT documented in this encounter Results * (ABNORMAL) Basic metabolic panel (03/03/2024 9:21 AM CDT) [facility] Signature Sodium 139 135 - 145 mmol/L 03/03/2024 [...] MD LAB - BLOOD ORDERABL ES LABORATORY [facility] [address] [facility] Lab (1st floor, no room number) [place] [address], [facility] * (ABNORMAL) CBC with platelets (03/03/2024 9:21 AM CDT) WBC Count 10.9 4.0 - 11.0 10e3/uL [...] LAB - BLOOD ORDERABL ES [facility] LABORATORY [facility] [address] [facility] Lab (1st floor, no room number) [place] [address], [facility] * (ABNORMAL) CBC with platelets (03/02/2024 9:52 AM CDT) WBC Count 11.8(H) 4.0 - 11.0 10e3/uL 03/02/2024 10:10 AM CDT [facility] LAB[facility] RBC Count 6.44(H) 4.40 - 5.90 10e6/uL 03/02/2024 10:10 AM CDT [facility] Hemoglobin 18.7(H) 13.3 - 17.7 g/dL 03/02/2024 10:10 AM CDT [facility] Hematocrit 60.9(H) 40.0 - 53.0 % 03/02/2024 10:10 AM CDT [facility] MCV 95 78 - 100 fL 03/02/2024 10:10 AM CDT LABORATORY MCH 29.0 26.5 - 33.0 pg 03/02/2024 10:10 AM CDT [facility] MCHC 30.7(L) 31.5 - 36.5 g/dL 03/02/2024 10:10 AM CDT LABORATORY RDW 15.7(H) 10.0 - 15.0 % 03/02/2024 10:10 AM CDT LABORATORY Platelet Count 211 150 - 450 10e3/uL 03/02/2024 10:10 AM CDT LABORATORY Blood BLOOD SPECIMEN / Unknown Venipuncture / Unknown 03/02/2024 9:52 AM CDT 03/02/2024 9:58 AM CDT Kaylene Sawant MD LAB - BLOOD ORDERABL ES LABORATORY [facility] [address] [facility] Lab (1st floor, no room number) [place] [address] * (ABNORMAL) Basic metabolic panel (03/02/2024 9:52 AM CDT) Sodium 136 135 - 145 mmol/L 03/02/2024 10:20 AM CDT LABORATORY Comment:Reference intervals for this test were updated on 07/24/2023 to more accurately reflect our healthy population. There may be differences in the flagging of prior results with similar values performed with this method. Interpretation of those prior results can be made in the context of the updated reference intervals. Potassium 4.2 3.4 - 5.3 mmol/L 03/02/2024 10:20 AM CDT LABORATORY Chloride 92(L) 98 - 107 mmol/L 03/02/2024 10:20 AM CDT LABORATORY Carbon Dioxide (CO2) 36(H) 22 - 29 mmol/L 03/02/2024 10:20 AM CDT LABORATORY Anion Gap 8 7 - 15 mmol/L 03/02/2024 10:20 AM CDT LABORATORY Urea Nitrogen 27.2(H) 8.0 - 23.0 mg/dL 03/02/2024 10:20 AM CDT LABORATORY Creatinine 0.97 0.67 - 1.17 mg/dL 03/02/2024 10:20 AM CDT [facility] GFR Estimate 89 >60 mL/min/1. 73m2 03/02/2024 10:20 AM CDT [facility] Calcium 9.2 8.8 - 10.2 mg/dL 03/02/2024 10:20 AM CDT [facility] Glucose 124(H) 70 - 99 mg/dL 03/02/2024 10:20 AM CDT [facility] Blood BLOOD SPECIMEN / Unknown Venipuncture / Unknown 03/02/2024 9:52 AM CDT 03/02/2024 9:58 AM CDT Kaylene Sawant MD LAB - BLOOD ORDERABL ES [facility] LABORATORY [facility] [address] [facility] Lab (1st floor, no room number) [place] [address], [facility] * D dimer quantitative (03/01/2024 10:10 AM [...] out pulmonary embolism: The ADJUST-PE Study. CAN 2014;311:7183-3629.; HJ Herve et al. Diagnostic accuracy of conventional or age adjusted D-dimer cutoff values in older patients with suspected venous thromboembolism. Systemic review and meta-analysis. BMJ 2013:346:f2492. Kaylene Sawant MD LAB - BLOOD ORDERABL ES [facility] LABORATORY [facility] [address] [facility] Lab (1st floor, no room number) [place] [address] * (ABNORMAL) Basic metabolic panel (03/01/2024 8:06 AM CDT) [facility] Signature Sodium 141 135 - 145 mmol/L 03/01/2024 8:35 AM CDT RH LABORATORY Comment:Reference intervals for this test were updated on 07/24/2023 to more accurately reflect our healthy population. There may be differences in the flagging of prior results with similar values performed with this method. Interpretation of those prior results can be made in the context of the updated reference intervals. Potassium 4.8 3.4 - 5.3 mmol/L 03/01/2024 8:35 AM CDT [facility] LAB[facility]ORY Chloride 96(L) 98 - 107 mmol/L 03/01/2024 8:35 AM CDT [facility] Carbon Dioxide (CO2) 38(H) 22 - 29 mmol/L 03/01/2024 8:35 AM CDT [facility] LAB[facility]ORY Anion Gap 7 7 - 15 mmol/L 03/01/2024 8:35 AM CDT [facility] Urea Nitrogen 25.9(H) 8.0 - 23.0 mg/dL 03/01/2024 8:35 AM CDT [facility] Creatinine 0.89 0.67 - 1.17 mg/dL 03/01/2024 8:35 AM CDT [facility] LAB[facility] GFR Estimate >90 >60 mL/min/1. 73m2 03/01/2024 8:35 AM CDT [facility] LAB[facility] Calcium 9.8 8.8 - 10.2 mg/dL 03/01/2024 8:35 AM CDT LABORATORY Glucose 89 70 - 99 mg/dL 03/01/2024 8:35 AM CDT LABORATORY Blood STRUCTURE OF RIGHT HAND / Unknown Venipuncture / Unknown 03/01/2024 8:06 AM CDT 03/01/2024 8:09 AM CDT Kaylene Sawant MD LAB - BLOOD ORDERABL ES LABORATORY [facility] [address] Lab (1st floor, no room number) [place] [address], [facility] * (ABNORMAL) Basic metabolic panel (02/29/2024 7:29 AM CDT) Sodium 137 135 - 145 mmol/L 02/29/2024 8:19 AM CDT LABORATORY Comment:Reference intervals for this test were updated on 07/24/2023 to more accurately reflect our healthy population. There may be differences in the flagging of prior results with similar values performed with this method. Interpretation of those prior results can be made in the context of the updated reference intervals. Potassium 4.6 3.4 - 5.3 mmol/L 02/29/2024 8:19 AM CDT LABORATORY Chloride 93(L) 98 - 107 mmol/L 02/29/2024 8:19 AM CDT LABORATORY Carbon Dioxide (CO2) 32(H) 22 - 29 mmol/L 02/29/2024 8:19 AM CDT LABORATORY Anion Gap 12 7 - 15 mmol/L 02/29/2024 8:19 AM CDT LABORATORY Urea Nitrogen 28.0(H) 8.0 - 23.0 mg/dL 02/29/2024 8:19 AM CDT LABORATORY Creatinine 0.96 0.67 - 1.17 mg/dL 02/29/2024 8:19 AM CDT LABORATORY GFR Estimate 90 >60 mL/min/1. 73m2 02/29/2024 8:19 AM CDT LABORATORY Calcium 9.8 8.8 - 10.2 mg/dL 02/29/2024 8:19 AM CDT LABORATORY Glucose 125(H) 70 - 99 mg/dL 02/29/2024 8:19 AM CDT RH LABORATORY Blood STRUCTURE OF RIGHT HAND / Unknown Venipuncture / Unknown 02/29/2024 7:29 AM CDT 02/29/2024 7:56 AM CDT Kaylene Sawant MD LAB - BLOOD ORDERABL ES [facility] LABORATORY [facility] [address] Lab (1st floor, no room number) [place] [address] * (ABNORMAL) CBC with platelets (02/29/2024 7:29 AM CDT) WBC Count 9.4 4.0 - 11.0 10e3/uL 02/29/2024 8:01 AM CDT [facility] LAB[facility] RBC Count 6.59(H) 4.40 - 5.90 10e6/uL 02/29/2024 8:01 AM CDT [facility] LAB[facility] Hemoglobin 19.0(H) 13.3 - 17.7 g/dL 02/29/2024 8:01 AM CDT [facility] LAB[facility] Hematocrit 61.9(H) 40.0 - 53.0 % 02/29/2024 8:01 AM CDT [facility] LAB[facility]ORY MCV 94 78 - 100 fL 02/29/2024 8:01 AM CDT [facility] LAB[facility] MCH 28.8 26.5 - 33.0 pg 02/29/2024 8:01 AM CDT [facility] MCHC 30.7(L) 31.5 - 36.5 g/dL 02/29/2024 8:01 AM CDT [facility] RDW 16.5(H) 10.0 - 15.0 % 02/29/2024 8:01 AM CDT [facility] Platelet Count 262 150 - 450 10e3/uL 02/29/2024 8:01 AM CDT [facility] LAB[facility] Blood STRUCTURE OF RIGHT HAND / Unknown Venipuncture / Unknown 02/29/2024 7:29 AM CDT 02/29/2024 7:56 AM CDT Kaylene Sawant MD LAB - BLOOD ORDERABL ES LABORATORY [facility] [address] Lab (1st floor, no room number) [place] [address] * (ABNORMAL) CBC with platelets (02/27/2024 6:25 AM CDT) WBC Count 7.6 4.0 - 11.0 10e3/uL 02/27/2024 6:48 AM CDT [facility] RBC Count 6.16(H) 4.40 - 5.90 10e6/uL 02/27/2024 6:48 AM CDT [facility] LAB[facility] Hemoglobin 18.1(H) 13.3 - 17.7 g/dL 02/27/2024 6:48 AM CDT [facility] Hematocrit 59.4(H) 40.0 - 53.0 % 02/27/2024 6:48 AM CDT [facility] MCV 96 78 - 100 fL 02/27/2024 6:48 AM CDT [facility] MCH 29.4 26.5 - 33.0 pg 02/27/2024 6:48 AM CDT [facility] MCHC 30.5(L) 31.5 - 36.5 g/dL 02/27/2024 6:48 AM CDT [facility] RDW 15.9(H) 10.0 - 15.0 % 02/27/2024 6:48 AM CDT [facility] Platelet Count 208 150 - 450 10e3/uL 02/27/2024 6:48 AM CDT [facility] Blood STRUCTURE OF RIGHT HAND / Unknown Venipuncture / Unknown 02/27/2024 6:25 AM CDT 02/27/2024 6:33 AM CDT Janee Stiles MD LAB - BLOOD OR DERABLES LABORATORY [facility] [address] Lab (1st floor, no room number) [place] [address] * (ABNORMAL) Basic metabolic panel (02/27/2024 6:25 AM CDT) Pathologist [facility] Sodium 141 135 - 145 mmol/L 02/27/2024 7:06 AM CDT [facility] LABORATORY Comment:Reference intervals for this test were updated on 07/24/2023 to more accurately reflect our healthy population. There may be differences in the flagging of prior results with similar values performed with this method. Interpretation of those prior results can be made in the context of the updated reference intervals. Potassium 5.3 3.4 - 5.3 mmol/L 02/27/2024 7:06 AM CDT [facility] Chloride 99 98 - 107 mmol/L 02/27/2024 7:06 AM CDT [facility] Carbon Dioxide (CO2) 31(H) 22 - 29 mmol/L 02/27/2024 7:06 AM CDT [facility] Anion Gap 11 7 - 15 mmol/L 02/27/2024 7:06 AM CDT LABORATORY Urea Nitrogen 21.5 8.0 - 23.0 mg/dL 02/27/2024 7:06 AM CDT LABORATORY Creatinine 0.91 0.67 - 1.17 mg/dL 02/27/2024 7:06 AM CDT LABORATORY GFR Estimate >90 >60 mL/min/1. 73m2 02/27/2024 7:06 AM CDT LABORATORY Calcium 9.3 8.8 - 10.2 mg/dL 02/27/2024 7:06 AM CDT LABORATORY Glucose 125(H) 70 - 99 mg/dL 02/27/2024 7:06 AM CDT LABORATORY Blood STRUCTURE OF RIGHT HAND / Unknown Venipuncture / Unknown 02/27/2024 6:25 AM CDT 02/27/2024 6:33 AM CDT Janee Stiles MD LAB - BLOOD OR DERABLES [facility] LABORATORY [facility] [address] Lab (1st floor, no room number) [place] [address], [facility] * XR Chest 2 Views (02/26/2024 2:46 PM CDT) Anatomical Region Laterality Modality Chest Digital Radiogra phy Impressions 02/26/2024 2:51 PM CDT IMPRESSION: Linear opacities in the left lung base may be due to atelectasis, pulmonary edema or atypical pneumonia. No pleural effusion or pneumothorax. Stable cardiomegaly and tortuous aortic arch ROSIO ANDERSON MD Narrative 02/26/2024 2:51 PM CDT XR CHEST 2 VIEWS 02/26/2024 2:46 PM HISTORY: dyspnea hypoxia COMPARISON: 08/09/2023 Procedure Note Rosio Anderson MD - 02/26/2024 XR CHEST 2 VIEWS 02/26/2024 2:46 PM HISTORY: dyspnea hypoxia COMPARISON: 08/09/2023 IMPRESSION: Linear opacities in the left lung base may be due to atelectasis, pulmonary edema or atypical pneumonia. No pleural effusion or pneumothorax. Stable cardiomegaly and tortuous aortic arch ROSIO ANDERSON MD Howard Rankin MD IMG DIAGNOSTIC IMAGI [...] thrombosis. HERBERTH POLLARD MD Howard Rankin MD [facility] ORDERABLES * Symptomatic Influenza A/B, RSV, & SARS-CoV2 PCR (COVID-19) Nasopharyngeal (02/26/2024 1:18 PM CDT) Influenza A PCR Negative Negative 02/26/2024 2:06 [...] PM CDT 02/26/2024 1:22 PM CDT Narrative [facility] - 02/26/2024 2:06 PM CDT Testing was performed using the Xpert Xpress CoV2/Flu/RSV Assay on the [employer] GeneXpert Instrument. This test should be ordered [...] test was validated by the [facility]. These laboratories are certified under the Clinical Laboratory Improvement Amendments of 1988 (CLIA-88) as qualified to perform high complexity laboratory testing. Howard Rankin MD LAB - MICRO GENERAL ORDERABLES LABORATORY [facility] [address] Lab (1st floor, no room number) [place] [phone] * Extra Heparinized Syringe (02/26/2024 1:17 PM CDT) Hold Specimen [facility] 02/26/2024 2:31 PM CDT [facility] Blood, venous VENOUS LINE / Unknown Venipuncture / Unknown 02/26/2024 1:17 PM CDT 02/26/2024 1:22 PM CDT Howard Rankin MD LAB - BLOOD ORDERABL ES [facility] [address] Lab (1st floor, no room number) [place] [phone] [place] [address] * Extra Red Top Tube (02/26/2024 1:17 PM CDT) [facility] Signature Hold Specimen [facility] 02/26/2024 2:31 PM CDT [facility] Blood VENOUS LINE / Unknown Venipuncture / Unknown 02/26/2024 1:17 PM CDT 02/26/2024 1:23 PM CDT Howard Rankin MD LAB - BLOOD ORDERABL ES [facility] Lab [address] Lab (1st floor, no room number) [place] [phone] [place] [address] * (ABNORMAL) CBC with platelets and differential (02/26/2024 1:17 PM CDT) Pathologist [facility] WBC Count 8.7 4.0 - 11.0 10e3/uL [...] Rankin MD LAB - BLOOD ORDERABL ES [facility] Lab [address] Lab (1st floor, no room number) [place] [phone] * Lipase (02/26/2024 1:17 PM CDT) Lipase 13 13 - 60 U/L 02/26/2024 1:48 PM CDT LABORATORY Blood VENOUS LINE / Unknown Venipuncture / Unknown 02/26/2024 1:17 PM CDT 02/26/2024 1:23 PM CDT Howard Rankin MD LAB - BLOOD ORDERABL ES Performing Organization Address [facility]/ZIP Co de Phone Number [facility] [address] Lab (1st floor, no room number) [place] [phone] [place] [address] * Nt probnp inpatient (BNP) (02/26/2024 1:17 PM CDT) N terminal Pro BNP Inpatient 129 0 - 900 pg/mL 02/26/2024 1:54 PM CDT [facility] Comment: Reference range shown and results [...] - BLOOD ORDERABL ES Performing Organization Address [facility]/ZIP Co de Phone Number [facility] Lab [address] Lab (1st floor, no room number) [place] [address] * Troponin T, High Sensitivity (02/26/2024 1:17 PM CDT) Troponin T, High Sensitivity 11 <=22 ng/L [...] - BLOOD ORDERABL ES Performing Organization Address [facility] Co de Phone Number [facility] Lab [address] Lab (1st floor, no room number) [place] [address], [facility] * (ABNORMAL) Comprehensive metabolic panel (02/26/2024 1:17 PM CDT) Sodium 139 135 - 145 mmol/L 02/26/2024 [...] LAB - BLOOD ORDERABL ES [facility] LABORATORY [facility] [address] Lab (1st floor, no room number) [place] [id number] * EKG 12-lead, tracing only (02/26/2024 1:15 PM CDT) Systolic Blood Pressure mmHg RADIOLOGY RESULTS Diastolic Blood Pressure mmHg RADIOLOGY RESULTS Ventricular Rate 98 BPM RAD IOLOGY RESULTS Atrial Rate 98 BPM RADIOLOG Y RESULTS GA Interval 146 ms RADIOLOG Y RESULTS QRS Duration 86 ms RADIOLO GY RESULTS QT 340 ms RADIOLOGY RESULTS QTc 434 ms RADIOLOGY RESULTS P Gary 61 degrees RADIOLOGY RESULTS R AXIS 69 degrees RADIOLOGY RESULTS T Gary 48 degrees RADIOLOGY RESULTS Interpretation ECG Sinus rhythm Normal ECG When compared with ECG of 13-JUL-2023 14:46, T wave inversion no longer evident in Inferior leads Nonspecific T wave abnormality no longer evident in Lateral leads Confirmed by - EMERGENCY ROOM, PHYSICIAN ([id number]), senior editor [place] [place] ([id number]) on 02/26/2024 2:02:07 PM RADIOLOGY RESULTS 02/26/2024 1:15 PM CDT 02/26/2024 2:02 PM CDT Howard Rankin MD ECG ORDERABLES RADIOLOGY RESULTS documented in this encounter Visit Diagnoses Diagnosis Diuretic-induced hypokalemia- Primary Hypopotassemia Dyspnea, unspecified type Hypoxia Hypoxemia COPD with acute exacerbation (H) Obstructive chronic bronchitis with exacerbation Hypoxia Hypoxemia COPD with acute exacerbation (H) Obstructive chronic bronchitis with exacerbation Dyspnea, unspecified type documented in this encounter Administered Medications Inactive Administered Medications - up to 3 most recent administrations Medication Order MAR Action Action Date Dose Rate Site albuterol (PROVENTIL HFA/VENTOLIN HFA) inhaler 6 puff, Inhalation, EVERY 2 HOURS PRN, wheezing, Starting on Sun02/26/24 at 1553, Check the dose counter on the inhaler to ensure there are doses remaining before administering. Prime by spraying into the air 4 times prior to first use and if not used within 2 weeks. $Given 02/26/2024 4:04 PM CDT 6 puffs albuterol (PROVENTIL) neb solution 2.5 mg 2.5 mg, Nebulization, EVERY 2 HOURS PRN, shortness of breath, Starting on Sun02/27/24 at 1143 aspirin EC tablet 81 mg 81 mg, Oral, DAILY, First dose on Sun02/27/24 at 0800, DO NOT CRUSH. $Given 03/03/2024 8:36 AM CDT 81 mg $Given 03/02/2024 8:10 AM CDT 81 mg $Given 03/01/2024 8:38 AM CDT 81 mg azithromycin (ZITHROMAX) tablet 500 mg Routine, 500 mg, Oral, DAILY, First dose on Sun02/27/24 at 1200, Indications: COPD exacerbation $Given 02/27/2024 12:28 PM CDT 500 mg azithromycin 500 mg (ZITHROMAX) in 0.9% NaCl 250 mL intermittent infusion 500 mg STAT, 500 mg, Intravenous, ONCE, On Sun02/26/24 at 1430, For 1 dose, Indications: COPD exacerabtion $New Bag 02/26/2024 2:45 PM CDT 500 mg dexAMETHasone PF (DECADRON) injection 10 mg 10 mg, Intravenous, ONCE, Administer over 1 Minutes, On Sun02/26/24 at 1305, For 1 dose $Given 02/26/2024 1:18 PM CDT 10 mg enoxaparin ANTICOAGULANT (LOVENOX) injection 40 mg 40 mg, Subcutaneous, EVERY 24 HOURS, First dose on Sun03/02/24 at 1500 $Given 03/02/2024 3:43 PM CDT 40 mg furosemide (LASIX) injection 40 mg 40 mg, Intravenous, EVERY 6 HOURS, Administer over 1-3 Minutes, First dose on Sun02/28/24 at 1130, For 2 doses $Given 02/28/2024 5:41 PM CDT 40 mg $Given 02/28/2024 11:36 AM CDT 40 mg furosemide (LASIX) injection 40 mg 40 mg, Intravenous, ONCE, Administer over 1-3 Minutes, On Sun03/01/24 at 1200, For 1 dose $Given 03/01/2024 1:49 PM CDT 4 0 mg furosemide (LASIX) injection 40 mg 40 mg, Intravenous, EVERY 6 HOURS, Administer over 1-3 Minutes, First dose on Sun03/02/24 at 0900, For 2 doses $Given 03/02/2024 2:06 PM CDT 40 mg $Given 03/02/2024 10:27 AM CDT 40 mg furosemide (LASIX) tablet 40 mg 40 mg, Oral, 2 TIMES DAILY (Diuretics and Nitrates), First dose on Sun02/29/24 at 1200 $Given 03/01/2024 8:38 AM C DT 40 mg $Given 02/29/2024 4:36 PM CDT 40 mg $Given 02/29/2024 12:21 PM CDT 40 mg gabapentin (NEURONTIN) capsule 300 mg 300 mg, Oral, AT BEDTIME, First dose on Sun02/26/24 at 2200 $Given 03/02/2024 9:35 PM CDT 300 mg $Given 03/01/2024 10:29 PM CDT 300 mg $Given 02/29/2024 9:28 PM CDT 300 mg ipratropium - albuterol 0.5 mg/2.5 mg/3 mL (DUONEB) neb solution 3 mL 3 mL, Nebulization, ONCE, On Sun02/26/24 at 1305, For 1 dose, For shortness of breath $Given 02/26/2024 1:18 PM CDT 3 mLs ipratropium - albuterol 0.5 mg/2.5 mg/3 mL (DUONEB) neb solution 3 mL 3 mL, Nebulization, ONCE, On Sun02/26/24 at 1425, For 1 dose, For shortness of breath $Given 02/26/2024 2:45 PM CDT 3 mLs ipratropium - albuterol 0.5 mg/2.5 mg/3 mL (DUONEB) neb solution 3 mL 3 mL, Nebulization, 4 TIMES DAILY RT, First dose (after last reorder) on Sun02/27/24 at 1200, For shortness of breath $Given 03/03/2024 12:12 PM CDT 3 mLs $Given 03/03/2024 8:23 AM CDT 3 mLs $Given 03/02/2024 7:17 PM CDT 3 mLs levofloxacin (LEVAQUIN) infusion 750 mg Routine, 750 mg, Intravenous, EVERY 24 HOURS, First dose on Sun02/27/24 at 1200, Irritant. Administer at a rate of no greater than 100 mL/hr, Indications: Community Acquired Pneumonia $New Bag 02/28/2024 11:36 AM CDT 750 mg 100 mL/hr $New Bag 02/27/2024 12:28 PM CDT 750 mg 100 mL/hr levofloxacin (LEVAQUIN) tablet 750 mg Routine, 750 mg, Oral, DAILY, First dose on Sun02/29/24 at 1200, Administer at least 2 hours before or 4 hours after aluminum, calcium, iron, zinc or magnesium containing medications. May be taken with food or on an empty stomach. Do not administer alone with a dairy product like milk or yogurt or calcium-fortified juice, but may be administered with a meal containing dairy. Hold tube feeding 1 hour before and 1 hour after administration, Indications: COPD exacerbation $Given 02/29/2024 12:21 PM CDT 750 mg levofloxacin (LEVAQUIN) tablet 750 mg Routine, 750 mg, Oral, DAILY, First dose (after last modification) on Sun03/01/24 at 0900, For 2 doses, Administer at least 2 hours before or 4 hours after aluminum, calcium, iron, zinc or magnesium containing medications. May be taken with food or on an empty stomach. Do not administer alone with a dairy product like milk or yogurt or calcium-fortified juice, but may be administered with a meal containing dairy. Hold tube feeding 1 hour before and 1 hour after administration, Indications: COPD exacerbation $Given 03/02/2024 8:10 AM CDT 750 mg $Given 03/01/2024 8:52 AM CDT 750 mg levothyroxine (SYNTHROID/LEVOTHROID) tablet 50 mcg 50 mcg, Oral, EVERY MORNING BEFORE BREAKFAST, First dose on Sun02/27/24 at 0730, Separate oral administration of iron- or calcium-containing products and levothyroxine by at least 4 hours. $Given 03/03/2024 6:55 AM CDT 50 mcg $Given 03/02/2024 6:51 AM CDT 50 mcg $Given 03/01/2024 8:55 AM CDT 50 mcg methylPREDNISolone sodium succinate (solu-MEDROL) injection 62.5 mg 62.5 mg (rounded from 60 mg), Intravenous, EVERY 12 HOURS, First dose on Sun02/27/24 at 1400, Doses greater than or equal to 1000 mg administer over 60 minutes Doses greater than or equal to 500 mg administer over 30-60 minutes Doses greater than or equal to 250 mg administer over 15-30 minutes Doses less than or equal to 125 mg IVP over 3-5 minutes $Given 02/29/2024 2:07 AM CDT 62.5 mg $Given 02/28/2024 4:06 PM CDT 62.5 mg $Given 02/28/2024 2:15 AM CDT 62.5 mg predniSONE (DELTASONE) tablet 10 mg 10 mg, Oral, DAILY, First dose on Sun03/12/24 at 0900, For 3 doses, 5th order in taper predniSONE (DELTASONE) tablet 20 mg 20 mg, Oral, DAILY, First dose on Sun03/09/24 at 0900, For 3 doses, 4th order in taper predniSONE (DELTASONE) tablet 30 mg 30 mg, Oral, DAILY, First dose on Sun03/06/24 at 0900, For 3 doses, 3rd order in taper predniSONE (DELTASONE) tablet 40 mg 40 mg, Oral, DAILY, First dose on Sun02/27/24 at 0800 $Given 02/27/2024 8:09 AM CDT 40 mg predniSONE (DELTASONE) tablet 40 mg 40 mg, Oral, DAILY, First dose on Sun03/03/24 at 0900, For 3 doses, 2nd order in taper $Given 03/03/2024 8:36 AM CDT 40 mg predniSONE (DELTASONE) tablet 60 mg 60 mg, Oral, DAILY, First dose on Sun02/29/24 at 1200, For 3 doses, 1st order in taper $Given 03/02/2024 8:11 AM CDT 60 mg $Given 03/01/2024 8:39 AM CDT 60 mg $Given 02/29/2024 12:21 PM CDT 60 mg senna-docusate (SENOKOT-S/PERICOLACE) 8.6-50 MG per tablet 1 tablet 1 tablet, Oral, 2 TIMES DAILY PRN, constipation, Starting on Sun02/26/24 at 1553, If no bowel movement in 24 hours, increase to 2 tablets by mouth. IF more than 1 constipation PRN medication is ordered, administer step-iverson as indicated, moving to the next step ONLY if prior step ineffective. Step 1: senna-docusate (SENOKOT-S; PERICOLACE) OR bisacodyl (DULCOLAX) EC tablet Step 2: polyethylene glycol (MIRALAX/GLYCOLAX) Step 3: bisacodyl (DULCOLAX) suppository Step 4: enema Hold for loose stools. senna-docusate (SENOKOT-S/PERICOLACE) 8.6-50 MG per tablet 2 tablet 2 tablet, Oral, 2 TIMES DAILY PRN, constipation, Starting on Sun02/26/24 at 1553, IF more than 1 constipation PRN medication is ordered, administer step-iverson as indicated, moving to the next step ONLY if prior step ineffective. Step 1: senna-docusate (SENOKOT-S; PERICOLACE) OR bisacodyl (DULCOLAX) EC tablet Step 2: polyethylene glycol (MIRALAX/GLYCOLAX) Step 3: bisacodyl (DULCOLAX) suppository Step 4: enema Hold for loose stools. sodium chloride (PF) 0.9% PF flush 3 mL 3 mL, Intracatheter, EVERY 8 HOURS, First dose on Sun02/26/24 at 1555, to lock peripheral IV dormant line $Given 03/03/2024 6:56 AM CDT 3 mLs $Given 03/02/2024 3:43 PM CDT 3 mLs $Given 03/02/2024 8:13 AM CDT 3 mLs sodium chloride (PF) 0.9% PF flush 3 mL 3 mL, Intracatheter, EVERY 1 MIN PRN, line flush, other, to ensure patency or to lock dormant line, Starting on Sun02/26/24 at 1553 $Given 03/03/2024 8:3 8 AM CDT 3 mLs $Given 02/27/2024 2:13 PM CDT 3 mLs terazosin (HYTRIN) capsule 2 mg 2 mg, Oral, AT BEDTIME, First dose on Sun02/26/24 at 2200 $Given 03/02/2024 9:35 PM CDT 2 mg $Given 03/01/2024 10:29 PM CDT 2 mg $Given 02/29/2024 9:28 PM CDT 2 mg torsemide (DEMADEX) tablet 20 mg 20 mg, Oral, DAILY, First dose on Sun02/26/24 at 1930 $Given 02/27/2024 8:09 AM CDT 20 mg $Given 02/26/2024 9:50 PM CDT 20 mg umeclidinium (INCRUSE ELLIPTA) 62.5 MCG/ACT inhaler 1 puff 1 puff, Inhalation, DAILY, First dose on Sun02/27/24 at 0900, Formulary alternate for Spiriva Check the dose counter on the inhaler to ensure there are doses remaining before administering. $Given 03/03/2024 8:23 AM CDT 1 puff $Given 03/02/2024 8:25 AM CDT 1 puff $Given 03/01/2024 8:31 AM CDT 1 puff Vitamin D3 (CHOLECALCIFEROL) tablet 50 mcg 50 mcg, Oral, DAILY, First dose on Sun02/27/24 at 0800, Note: 25 mcg = 1000 units $Given 03/03/2024 8:36 AM CDT 50 mcg $Given 03/02/2024 8:11 AM CDT 50 mcg $Given 03/01/2024 8:38 AM CDT 50 mcg documented in this encounter Active and Recently Administered Medications Times are shown in CDT. Scheduled Medication Order 03/01/2024 03/02/2024 03/03/2024 aspirin EC tablet 81 mg 81 mg, Oral, DAILY, First dose on Sun02/27/24 at 0800, DO NOT CRUSH. 0838 ($Given - Provider: Jordana Javier RN) 0810 ($Given - Provider: Jordana Javier RN) 0836 ($Given - Provider: Jordana Javeir RN) enoxaparin ANTICOAGULANT (LOVENOX) injection 40 mg 40 mg, Subcutaneous, EVERY 24 HOURS, First dose on Sun03/02/24 at 1500 1543 ($Given - Provider: Nehemiah Puri RN) 1500 (Canceled Entry - Provider: Isai Generic Provider - Comment: Automatically canceled at discontinue of medication order) furosemide (LASIX) injection 40 mg (COMPLETED) 40 mg, Intravenous, ONCE, Administer over 1-3 Minutes, On Sun03/01/24 at 1200, For 1 dose 1349 ($Given - Provider: Jordana Javier RN) furosemide (LASIX) injection 40 mg (COMPLETED) 40 mg, Intravenous, EVERY 6 HOURS, Administer over 1-3 Minutes, First dose on Sun03/02/24 at 0900, For 2 doses 1027 ($Given - Provider: Jordana Javier RN)1406 ($Given - Provider: Jordana Javier RN) furosemide (LASIX) tablet 40 mg (CANCELED) 40 mg, Oral, 2 TIMES DAILY (Diuretics and Nitrates), First dose on Sun02/29/24 at 1200 0838 ($Given - Provider: Jordana Javier RN) gabapentin (NEURONTIN) capsule 300 mg 300 mg, Oral, AT BEDTIME, First dose on Sun02/26/24 at 2200 2229 ($Given - Provider: Carin Godfrey RN) 2135 ($Given - Provider: Nehemiah Puri RN) ipratropium - albuterol 0.5 mg/2.5 mg/3 mL (DUONEB) neb solution 3 mL 3 mL, Nebulization, 4 TIMES DAILY RT, First dose (after last reorder) on Sun02/27/24 at 1200, For shortness of breath 0831 ($Given - Provider: Stefanie Greenwood, RT)1235 ($Given - Provider: Stefanie Greenwood RT)1606 ($Given - Provider: Stefanie Greenwood RT)1935 ($Given - Provider: Ashish Mishra RT) 0825 ($Given - Provider: Foreign Wallace RT)1212 ($Given - Provider: Foreign Wallace RT)1602 ($Given - Provider: Foreign Wallace RT)1917 ($Given - Provider: Ashish M Goni, RT) 0823 ($Given - Provider: Stefanie Greenwood RT)1212 ($Given - Provider: RT Kiki) levofloxacin (LEVAQUIN) tablet 750 mg (COMPLETED) Routine, 750 mg, Oral, DAILY, First dose (after last modification) on Sun03/01/24 at 0900, For 2 doses, Administer at least 2 hours before or 4 hours after aluminum, calcium, iron, zinc or magnesium containing medications. May be taken with food or on an empty stomach. Do not administer alone with a dairy product like milk or yogurt or calcium-fortified juice, but may be administered with a meal containing dairy. Hold tube feeding 1 hour before and 1 hour after administration, Indications: COPD exacerbation 0852 ($Given - Provider: Jordana Javier RN) 0810 ($Given - Provider: Jordana Javier RN) levothyroxine (SYNTHROID/LEVOTHROID) tablet 50 mcg 50 mcg, Oral, EVERY MORNING BEFORE BREAKFAST, First dose on Sun02/27/24 at 0730, Separate oral administration of iron- or calcium-containing products and levothyroxine by at least 4 hours. 0855 ($Given - Provider: Jordana Javier RN) 0651 ($Given - Provider: Abelardo Conrad, KADEN) 0655 ($Given - Provider: Abelardo Conrad, KADEN) predniSONE (DELTASONE) tablet 10 mg(Linked Group 1) 10 mg, Oral, DAILY, First dose on Sun03/12/24 at 0900, For 3 doses, 5th order in taper predniSONE (DELTASONE) tablet 20 mg(Linked Group 1) 20 mg, Oral, DAILY, First dose on Sun03/09/24 at 0900, For 3 doses, 4th order in taper predniSONE (DELTASONE) tablet 30 mg(Linked Group 1) 30 mg, Oral, DAILY, First dose on Sun03/06/24 at 0900, For 3 doses, 3rd order in taper predniSONE (DELTASONE) tablet 40 mg(Linked Group 1) 40 mg, Oral, DAILY, First dose on Sun03/03/24 at 0900, For 3 doses, 2nd order in taper 0836 ($Given - Provider: Jordana Javier RN) predniSONE (DELTASONE) tablet 60 mg (COMPLETED)(Linked Group 1) 60 mg, Oral, DAILY, First dose on Sun02/29/24 at 1200, For 3 doses, 1st order in taper 0839 ($Given - Provider: Jordana Javier RN) 0811 ($Given - Provider: Jordana Javier RN) sodium chloride (PF) 0.9% PF flush 3 mL 3 mL, Intracatheter, EVERY 8 HOURS, First dose on Sun02/26/24 at 1555, to lock peripheral IV dormant line 0216 (Not Given - Provider: Abelardo Conrad RN - Reason: No IV Access)0843 (Not Given - Provider: Jordana Javier RN - Reason: No IV Access)1835 ($Given - Provider: Carin Godfrey RN) 0018 ($Given - Provider: Abelardo Conrad RN)0813 ($Given - Provider: Jordana Javier RN)1543 ($Given - Provider: Nehemiah Puri, KADEN) 0314 (Not Given - Provider: Abelardo Conrad RN - Reason: Patient sleeping)0656 ($Given - Provider: Abelardo Conrad RN)1555 (Canceled Entry - Provider: Orders Generic Provider - Comment: Automatically canceled at discontinue of medication order) terazosin (HYTRIN) capsule 2 mg 2 mg, Oral, AT BEDTIME, First dose on Sun02/26/24 at 2200 2229 ($Given - Provider: Carin Godfrey RN) 2135 ($Given - Provider: Nehemiah Puri, KADEN) umeclidinium (INCRUSE ELLIPTA) 62.5 MCG/ACT inhaler 1 puff 1 puff, Inhalation, DAILY, First dose on Sun02/27/24 at 0900, Formulary alternate for Spiriva Check the dose counter on the inhaler to ensure there are doses remaining before administering. 0831 ($Given - Provider: RT Kiki) 0825 ($Given - Provider: RT Yanet) 0823 ($Given - Provider: Stefanie Greenwood RT) Vitamin D3 (CHOLECALCIFEROL) tablet 50 mcg 50 mcg, Oral, DAILY, First dose on Sun02/27/24 at 0800, Note: 25 mcg = 1000 units 0838 ($Given - Provider: Jordana Javier RN) 0811 ($Given - Provider: Jordana Javier RN) 0833 ($Given - Provider: Jordana Javier RN) PRN Medication Order 03/01/2024 03/02/2024 03/03/2024 albuterol (PROVENTIL) neb solution 2.5 mg 2.5 mg, Nebulization, EVERY 2 HOURS PRN, shortness of breath, Starting on Sun02/27/24 at 1143 calcium carbonate (TUMS) chewable tablet 1,000 mg 1,000 mg, Oral, 4 TIMES DAILY PRN, heartburn, Starting on Sun02/26/24 at 1553 lidocaine (LMX4) cream Topical, EVERY 1 HOUR PRN, pain, with VAD insertion, Starting on Sun02/26/24 at 1553, Apply at least 30 minutes prior to VAD insertion in divided doses as needed for size of site for insertion. MAX Dose: 2.5 g (?? of 5 g tube) Do NOT give if patient has a history of allergy to any local anesthetic or any rad product. Do NOT use both lidocaine intradermal/subcutaneous injection and the lidocaine cream on the same site. lidocaine 1 % 0.1-1 mL 0.1-1 mL, Other, EVERY 1 HOUR PRN, mild pain with VAD insertion, Starting on Sun02/26/24 at 1553, MAX dose 1 mL subcutaneous OR intradermal along the side of the vein in divided doses as needed for VAD insertion. Do NOT give if patient has a history of allergy to any local anesthetic or any rad product. Do NOT use both lidocaine intradermal/subcutaneous injection and the lidocaine cream on the same site. QUEtiapine (SEROquel) half-tab 12.5 mg 12.5 mg, Oral, AT BEDTIME PRN, delirium or confusion., Starting on Sun02/26/24 at 1553 senna-docusate (SENOKOT-S/PERICOLACE) 8.6-50 MG per tablet 1 tablet(Linked Group 2) 1 tablet, Oral, 2 TIMES DAILY PRN, constipation, Starting on Sun02/26/24 at 1553, If no bowel movement in 24 hours, increase to 2 tablets by mouth. IF more than 1 constipation PRN medication is ordered, administer step-iverson as indicated, moving to the next step ONLY if prior step ineffective. Step 1: senna-docusate (SENOKOT-S; PERICOLACE) OR bisacodyl (DULCOLAX) EC tablet Step 2: polyethylene glycol (MIRALAX/GLYCOLAX) Step 3: bisacodyl (DULCOLAX) suppository Step 4: enema Hold for loose stools. senna-docusate (SENOKOT-S/PERICOLACE) 8.6-50 MG per tablet 2 tablet(Linked Group 2) 2 tablet, Oral, 2 TIMES DAILY PRN, constipation, Starting on Sun02/26/24 at 1553, IF more than 1 constipation PRN medication is ordered, administer step-iverson as indicated, moving to the next step ONLY if prior step ineffective. Step 1: senna-docusate (SENOKOT-S; PERICOLACE) OR bisacodyl (DULCOLAX) EC tablet Step 2: polyethylene glycol (MIRALAX/GLYCOLAX) Step 3: bisacodyl (DULCOLAX) suppository Step 4: enema Hold for loose stools. sennosides (SENOKOT) tablet 1 tablet 1 tablet, Oral, DAILY PRN, constipation, Starting on Sun02/26/24 at 1553, Hold for loose stools. sodium chloride (PF) 0.9% PF flush 3 mL 3 mL, Intracatheter, EVERY 1 MIN PRN, line flush, other, to ensure patency or to lock dormant line, Starting on Sun02/26/24 at 1553 0838 ($Given - Provi salvador: Jordana Javier RN) Linked Groups Order Group 1: predniSONE (DELTASONE) tablet 60 mg (COMPLETED)Jump to med 60 mg, Oral, DAILY, First dose on Sun02/29/24 at 1200, For 3 doses, 1st order in taper Followed by predniSONE (DELTASONE) tablet 40 mgJump to med 40 mg, Oral, DAILY, First dose on Sun03/03/24 at 0900, For 3 doses, 2nd order in taper Followed by predniSONE (DELTASONE) tablet 30 mgJump to med 30 mg, Oral, DAILY, First dose on Sun03/06/24 at 0900, For 3 doses, 3rd order in taper Followed by predniSONE (DELTASONE) tablet 20 mgJump to med 20 mg, Oral, DAILY, First dose on Sun03/09/24 at 0900, For 3 doses, 4th order in taper Followed by predniSONE (DELTASONE) tablet 10 mgJump to med 10 mg, Oral, DAILY, First dose on Sun03/12/24 at 0900, For 3 doses, 5th order in taper Group 2: senna-docusate (SENOKOT-S/PERICOLACE) 8.6-50 MG per tablet 1 tabletJump to med 1 tablet, Oral, 2 TIMES DAILY PRN, constipation, Starting on Sun02/26/24 at 1553, If no bowel movement in 24 hours, increase to 2 tablets by mouth. IF more than 1 constipation PRN medication is ordered, administer step-iverson as indicated, moving to the next step ONLY if prior step ineffective. Step 1: senna-docusate (SENOKOT-S; PERICOLACE) OR bisacodyl (DULCOLAX) EC tablet Step 2: polyethylene glycol (MIRALAX/GLYCOLAX) Step 3: bisacodyl (DULCOLAX) suppository Step 4: enema Hold for loose stools. Or senna-docusate (SENOKOT-S/PERICOLACE) 8.6-50 MG per tablet 2 tabletJump to med 2 tablet, Oral, 2 TIMES DAILY PRN, constipation, Starting on Sun02/26/24 at 1553, IF more than 1 constipation PRN medication is ordered, administer step-iverson as indicated, moving to the next step ONLY if prior step ineffective. Step 1: senna-docusate (SENOKOT-S; PERICOLACE) OR bisacodyl (DULCOLAX) EC tablet Step 2: polyethylene glycol (MIRALAX/GLYCOLAX) Step 3: bisacodyl (DULCOLAX) suppository Step 4: enema Hold for loose stools. documented in this encounter Additional Health Concerns Infection Onset Date Last Indicated Resolved Time Rule Out COVID-19 02/26/2024 02/26/2024 02/26/2024 2:06 PM CDT documented as of this encounter Care Teams Remote Sensing Surveyor Relationship Specialty Start Date End Date [facility], [place] [id number] PCP - General 03/28/17 documented as of this encounter
--- OUTSIDE RECORDS SUMMARY | 2024-03-07 12:12 | XMS_ITS | Clinical Summary ---
Author Name Unknown Organization [facility] Address [address] [place] [address] Care Team Providers Care Toe Former Name Role Phone Unavailable Primary Care Provider Unavailabl e Allergies No known active allergies Medications Medication Sig Dispensed Refills Start Date End Date Status acetaminophen (TYLENOL) 160 MG/5ML solution Administer 15.7 mL (500 mg total) per tube every 6 (six) hours as needed for mild pain. 0 12/02/2021 Active enoxaparin (LOVENOX) 40 MG/0.4ML solution Inject 0.4 mL (40 mg total) under the skin every 12 (twelve) hours. 0 12/02/2021 Active Fluticasone-Salmeter ol (AIRDUO RESPICLICK) 232-14 MCG/ACT inhaler Inhale 1 puff RT 2 (two) times a day. 0 12/02/2021 Active gabapentin (NEURONTIN) 100 MG capsule Administer 2 capsules (200 mg total) per tube 3 (three) times a day. 0 12/02/2021 Active levothyroxine (SYNTHROID) 50 MCG tablet 1 tablet (50 mcg total) by PO/Per Tube route Daily at 6am. 0 12/03/2021 Active melatonin tablet 2 tablets (6 mg total) by PO/Per Tube route nightly. 0 12/02/2021 Active polyethylene glycol (MIRALAX) 17 g packet Take 17 g by mouth 2 (two) times a day. 10 each 0 12/02/2021 Active terazosin (HYTRIN) 2 MG capsule 1 capsule (2 mg total) by PO/Per Tube route nightly. 0 12/02/2021 Active Umeclidinium [place] (INCRUSE ELLIPTA) 62.5 MCG/INH aerosol powder Inhale 1 puff (62.5 mcg total) RT Daily. 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 Gastrostomy status 09/27/2021 Acute respiratory failure with hypoxia Social History Tobacco Use Types Packs/Day Years Used Date Smoking Tobacco: Every Day Cigarettes 1 15 Smokeless Tobacco: Never Tobacco Cessation:Ready to Q uit: Yes; Counseling Given: No Alcohol Use Standard Drinks/Week Comments Defer 0 (1 standard drink = 0.6 oz pur e alcohol) Sex and Gender Information Value Date Recorded Sex Assigned at Not on file Gender Identity Not on file Sexual Orientation Not on file Last Filed Vital Signs Vital Sign Reading Time Taken Comments Blood Pressure 127/81 12/02/2021 8:32 AM SLOT FLOOR SUPERVISOR Pulse 86 12/02/2021 8:32 AM SLOT FLOOR SUPERVISOR Temperature 36.2 ??C (97.1 ??F) 12/02/2021 8:32 AM CS T Respiratory Rate 18 12/02/2021 8:32 AM SLOT FLOOR SUPERVISOR Oxygen Saturation 98% 12/02/2021 8:32 AM SLOT FLOOR SUPERVISOR Inhaled Oxygen Concentration - - Weight 156.9 kg (346 lb) 11/30/2021 4:45 AM SLOT FLOOR SUPERVISOR Height 182.9 cm (6') 09/19/2021 9:37 PM SLOT FLOOR SUPERVISOR Body Mass Index 46.93 09/19/2021 9:37 PM SLOT FLOOR SUPERVISOR Plan of Treatment Not on file Advance Directives * Full Resuscitation (Latest Code Status on File) Date Activated Date Inactivated Comments 09/19/2021 10:27 PM 12/02/2021 5:29 PM
== END 2024-03-07 12:09 | disposition home or self-care (01) ==
PROVIDERS: PCP Family Medicine; Visit Provider Family Medicine
DX: E78.2 Mixed hyperlipidemia (principal); I50.9 Heart failure, unspecified; Z12.5 Encounter for screening for malignant neoplasm of prostate; E03.9 Hypothyroidism, unspecified
CPT/HCPCS: 80048; 80061; 82728; 84443; G0103

== ENCOUNTER 2024-03-09 08:47 | Outpatient (CLI) | payer MEDICAID, SELFPAY ==
--- OUTSIDE RECORDS SUMMARY | 2024-03-09 08:51 | XMS_ITS | Clinical Summary ---
Author Name Unknown Organization [place] Address [facility] [place] [address] Care Team Providers Care Flight Operations Engineer Name Role Phone Clinic, [facility] Primary Care Provider Allergies Active Allergy Reactions [...] - 03/03/2024 1:55 PM CDT Hospital Encounter [place] [address] [facility] Surgical [address] [place] [address] Howard Rankin MD Walker, MD Go Colon, Janee Lira MD Diuretic-induced hypokalemia (Primary Dx); Dyspnea, unspecified type; Hypoxia; COPD with acute exacerbation (H) Discharge Disposition: Home or Self Care 02/26/2024 Travel from Last 3 Months Immunizations Name Administration Dates Next Due Pneumococcal 23 valent 05/07/2012 Family History Medical History Relation Comments Myocardial Infarction Father at ag e 52 from [place] per sister Gloria Diabetes Type 2 Mother [...] of5 resultswithin the time period is included. [facility] Sodium 139 135 - 145 mmol/L 03/03/2024 [...] MD LAB - BLOOD ORDERABL ES LABORATORY [facility] Acute Care Lab [address] [facility] Lab (1st floor, no room number) [place] [address], [facility] * (ABNORMAL) CBC with platelets (03/03/2024 9:21 [...] LAB - BLOOD ORDERABL ES RH LABORATORY [facility] Acute Care Lab [address] [facility] Lab (1st floor, no room number) [place] [address], [facility] * D dimer quantitative (03/01/2024 10:10 AM CDT) Pathologist [facility] D-Dimer Quantitative 0.47 0.00 - 0.50 ug/mL [...] out pulmonary embolism: The ADJUST-PE Study. CAN 2014;311:5983-8159.; HJ Herve et al. Diagnostic accuracy of conventional or age adjusted D-dimer cutoff values in older patients with suspected venous thromboembolism. Systemic review and meta-analysis. BMJ 2013:346:f2492. Kaylene Sawant MD LAB - BLOOD ORDERABL ES [facility] Acute Care Lab [address] [facility] Lab (1st floor, no room number) [place] [address] * XR Chest 2 Views (02/26/2024 2:46 [...] arch ROSIO LEE MD Howard Rankin MD [facility] [place] [place] ORDERABLES * US Lower [...] thrombosis. HERBERTH POLLARD MD Howard Rankin MD [facility] [place] ORDER[place]LES * Symptomatic Influenza A/B, RSV, & SARS-CoV2 PCR (COVID-19) Nasopharyngeal (02/26/2024 1:18 PM CDT) Pathologist [facility] Influenza A PCR Negative Negative 02/26/2024 2:06 [...] the Xpert Xpress CoV2/Flu/RSV Assay on the [employer] GeneXpert Instrument. This test should be ordered [...] management. This test was validated by the [facility] Employee Benefit Plans. These laboratories are certified under the Clinical Laboratory Improvement Amendments of 1988 (CLIA-88) as qualified to perform high complexity laboratory testing. Howard Rankin MD LAB - MICRO GENERAL ORDERABLES Performing Organization Address City/[facility]/ZIP Co de Phone Number [facility] Care Lab [address] Lab (1st floor, no room number) [place] [address], [facility] * Extra Heparinized Syringe (02/26/2024 1:17 PM CDT) Pathologist [facility] Hold Specimen [facility] 02/26/2024 2:31 PM CDT LABORATORY Blood, venous VENOUS LINE / Unknown Venipuncture / Unknown 02/26/2024 1:17 PM CDT 02/26/2024 1:22 PM CDT Howard Rankin MD LAB - BLOOD ORDERABL ES Performing Organization Address City/[facility]/ZIP Co de Phone Number [facility] Lab [address] [employer] Lab (1st floor, no room number) [place] [address] * Extra Red Top Tube (02/26/2024 1:17 PM CDT) Hold Specimen [facility] 02/26/2024 2:31 PM CDT RH LABORATORY Blood VENOUS LINE / Unknown Venipuncture / Unknown 02/26/2024 1:17 PM CDT 02/26/2024 1:23 PM CDT Howard Rankin MD LAB - BLOOD ORDERABL ES RH LABORATORY [facility] Acute Care Lab [address] Lab (1st floor, no room number) [place] [address] * (ABNORMAL) CBC with platelets and differential [...] LAB - BLOOD ORDERABL ES RH LABORATORY [facility] Acute Care Lab [address] [facility] Lab (1st floor, no room number) [place] [address], [facility] * Troponin T, High Sensitivity (02/26/2024 1:17 PM CDT) Pathologist [facility] Troponin T, High Sensitivity 11 <=22 ng/L [...] - BLOOD ORDERABL ES Performing Organization Address [facility]/ZIP Co de Phone Number [facility] Care Lab [address] Lab (1st floor, no room number) [place] [address] * Nt probnp inpatient (BNP) (02/26/2024 1:17 PM CDT) [facility] N terminal Pro BNP Inpatient [phone] 0 [...] - BLOOD ORDERABL ES Performing Organization Address City/[facility]/ZIP Co de Phone Number RH LABORATORY [facility] Acute Care Lab [address] Lab (1st floor, no room number) [place] [address] * Lipase (02/26/2024 1:17 PM CDT) Lipase 13 13 - 60 U/L 02/26/2024 1:48 PM CDT RH LABORATORY Blood VENOUS LINE / Unknown Venipuncture / Unknown 02/26/2024 1:17 PM CDT 02/26/2024 1:23 PM CDT Howard Rankin MD LAB - BLOOD ORDERABL ES [facility] Care Lab [address] Lab (1st floor, no room number) [place] [address] * (ABNORMAL) Comprehensive metabolic panel (02/26/2024 1:17 PM CDT) Pathologist [facility] Sodium 139 135 - 145 mmol/L 02/26/2024 [...] LAB - BLOOD ORDERABL ES RH LABORATORY [facility] Acute Care Lab [address] [facility] Lab (1st floor, no room number) [place] [address], [facility] * EKG 12-lead, tracing only (02/26/2024 1:15 PM CDT) Systolic Blood Pressure mmHg RADIOLOGY RESULTS Diastolic Blood Pressure mmHg RADIOLOGY RESULTS Ventricular Rate 98 BPM RAD IOLOGY RESULTS Atrial Rate 98 BPM RADIOLOG Y RESULTS ND Interval 146 ms RADIOLOG Y RESULTS QRS Duration 86 ms RADIOLO GY RESULTS QT 340 ms RADIOLOGY RESULTS QTc 434 ms RADIOLOGY RESULTS P [place] 61 degrees RADIOLOGY RESULTS R AXIS 69 degrees RADIOLOGY RESULTS T [place] 48 degrees RADIOLOGY RESULTS Interpretation ECG Sinus rhythm Normal ECG When compared with ECG of 13-JUL-2023 14:46, T wave inversion no longer evident in Inferior leads Nonspecific T wave abnormality no longer evident in Lateral leads Confirmed by - EMERGENCY ROOM, PHYSICIAN ([id number]), supervising film or videotape editor LOCO WINTER ([id number]) on 02/26/2024 2:02:07 PM RADIOLOGY RESULTS 02/26/2024 [...] LAB - BLOOD ORDERABL ES RH LABORATORY [facility] Acute Care Lab [address] Lab (1st floor, no room number) [place] [address], [facility] [phone] * CT Chest w/o Contrast (07/13/2023 5:44 [...] CDT EXAM: CT CHEST W/O CONTRAST LOCATION: [facility] DATE: 07/13/2023 INDICATION: Worsening respiratory status; possible [...] suction tube tip terminates inferiorly beyond the okbon-pq-kfxs within the gastric body. MUSCULOSKELETAL: No suspicious abnormality. OTHER: No additionally suspicious abnormality. Procedure Note Fernando Quiñonez MD - 07/13/2023 EXAM: CT CHEST W/O CONTRAST LOCATION: [facility] DATE: 07/13/2023 INDICATION: Worsening respiratory status; possible [...] Enteric suction tube tip terminatesinferiorly beyond the tkurs-es-htay within the gastric body. MUSCULOSKELETAL: No suspicious [...] Perez MD LAB - BLOOD ORDERABLES LABORATORY [facility] Acute Care Lab [address] Lab (1st floor, no room number) [place] [address], [facility] [phone] * PULMONARY FUNCTION TEST (06/13/2012 6:15 PM [...] is advised. VIRGINIA ORONA MD MT: Name: JNA HUDDLESTON Account: [id number] : 1960 Procedure Date: 05/06/2012 Document: [id number] Virginia Orona MD PFT ORDERABLES from Last 3 Months or Most Recently Relevant to Health Maintenance Advance Directives For more information, please contact: [phone] * Full Code (Latest Code Status on [...] 10:12 AM 07/05/2023 8:06 AM Care Teams Flight Operations Engineer Relationship Specialty Start Date End Date [facility], [facility] [address] [place] [address] PCP - General 03/28/17
--- OUTSIDE RECORDS SUMMARY | 2024-03-09 08:51 | XMS_ITS | Referral Summary ---
Author Name Unknown Organization [place] Address [facility] [place] [address] Care Team Providers Care Family Service Worker Name Role Phone [facility], [facility] Primary Care Provider Encounters Date Type Department Care Team Description 02/26/2024 1:00 PM CDT - 03/03/2024 1:55 PM CDT Hospital Encounter [place] [address] Medical Surgical [address] [place] [address] Howard Rankin MD Walker, MD Go Colon, [...] of5 resultswithin the time period is included. [facility] Sodium 139 135 - 145 mmol/L 03/03/2024 [...] LAB - BLOOD ORDERABL ES RH LABORATORY [facility] Acute Care Lab [address] [facility] Lab (1st floor, no room number) [place] [address] * (ABNORMAL) CBC with platelets (03/03/2024 [...] LAB - BLOOD ORDERABL ES RH LABORATORY [facility] Acute Care Lab [address] [facility] Lab (1st floor, no room number) [place] [address], [facility] * D dimer quantitative [...] out pulmonary embolism: The ADJUST-PE Study. CAN 2014;311:5407-1279.; HJ Herve et al. Diagnostic accuracy of conventional or age adjusted D-dimer cutoff values in older patients with suspected venous thromboembolism. Systemic review and meta-analysis. BMJ 2013:346:f2492. Kaylene Sawant MD LAB - BLOOD ORDERABL ES [facility] Acute Care Lab [address] Lab (1st floor, no room number) [place] [address] * XR Chest 2 Views (02/26/2024 [...] thrombosis. HERBERTH POLLARD MD Howard Rankin MD [facility] ORDERABLES * Symptomatic Influenza A/B, RSV, & SARS-CoV2 PCR (COVID-19) Nasopharyngeal (02/26/2024 1:18 PM CDT) [facility] Influenza A PCR Negative Negative 02/26/2024 2:06 [...] 1:18 PM CDT 02/26/2024 1:22 PM CDT [facility] LABORATORY - 02/26/2024 2:06 PM CDT Testing was performed using the Xpert Xpress CoV2/Flu/RSV Assay on the [employer] GeneXpert Instrument. This test should be ordered [...] management. This test was validated by the [facility]. These laboratories are certified under the Clinical Laboratory Improvement Amendments of 1988 (CLIA-88) as qualified to perform high complexity laboratory testing. Howard Rankin MD LAB - MICRO GENERAL ORDERABLES Performing Organization Address City/[facility]/ZIP Co de Phone Number [facility] Lab [address] [facility] Lab (1st floor, no room number) [place] [address] * Extra Heparinized Syringe (02/26/2024 1:17 PM CDT) Hold Specimen [facility] 02/26/2024 2:31 PM CDT LABORATORY Blood, venous VENOUS LINE / Unknown Venipuncture / Unknown 02/26/2024 1:17 PM CDT 02/26/2024 1:22 PM CDT Howard Rankin MD LAB - BLOOD ORDERABL ES Performing Organization Address City/[facility]/ZIP Co de Phone Number [facility] Lab [address] Lab (1st floor, no room number) [place] [address] * Extra Red Top Tube (02/26/2024 1:17 PM CDT) Hold Specimen [facility] 02/26/2024 2:31 PM CDT LABORATORY Blood VENOUS LINE / Unknown Venipuncture / Unknown 02/26/2024 1:17 PM CDT 02/26/2024 1:23 PM CDT Howard Rankin MD LAB - BLOOD ORDERABL ES RH LABORATORY [facility] Acute [facility] Lab [address] Lab (1st floor, no room number) [place] [address], [facility] * (ABNORMAL) CBC with platelets and differential [...] MD LAB - BLOOD ORDERABL ES LABORATORY [facility] Lab [address] [facility] Lab (1st floor, no room number) [place] [address] * Troponin T, High Sensitivity (02/26/2024 1:17 PM CDT) [facility] Troponin T, High Sensitivity 11 <=22 ng/L [...] - BLOOD ORDERABL ES Performing Organization Address [facility]/ZIP Co de Phone Number [facility] Lab [address] Lab (1st floor, no room number) [place] [phone] * Nt probnp inpatient (BNP) (02/26/2024 1:17 [...] - BLOOD ORDERABL ES Performing Organization Address [facility]/ZIP Co de Phone Number [facility] Lab [address] Lab (1st floor, no room number) [place] [address] * Lipase (02/26/2024 1:17 PM CDT) Lipase 13 13 - 60 U/L 02/26/2024 1:48 PM CDT LABORATORY Blood VENOUS LINE / Unknown Venipuncture / Unknown 02/26/2024 1:17 PM CDT 02/26/2024 1:23 PM CDT Howard Rankin MD LAB - BLOOD ORDERABL ES RH LABORATORY [facility] Acute [facility] Lab [address] Lab (1st floor, no room number) [place] [address], [facility] * (ABNORMAL) Comprehensive metabolic panel (02/26/2024 1:17 PM CDT) [facility] Sodium 139 135 - 145 mmol/L 02/26/2024 [...] MD LAB - BLOOD ORDERABL ES LABORATORY [facility] Lab [address] Lab (1st floor, no room number) [place] [address], [facility] * EKG 12-lead, tracing only (02/26/2024 1:15 PM CDT) Systolic Blood Pressure mmHg RADIOLOGY RESULTS Diastolic Blood Pressure mmHg RADIOLOGY RESULTS Ventricular Rate 98 BPM RAD IOLOGY RESULTS Atrial Rate 98 BPM RADIOLOG Y RESULTS [place] Interval 146 ms RADIOLOG Y RESULTS QRS Duration 86 ms RADIOLO GY RESULTS QT 340 ms RADIOLOGY RESULTS QTc 434 ms RADIOLOGY RESULTS P [place] 61 degrees RADIOLOGY RESULTS R AXIS 69 degrees RADIOLOGY RESULTS T [place] 48 degrees RADIOLOGY RESULTS Interpretation ECG Sinus rhythm Normal ECG When compared with ECG of 13-JUL-2023 14:46, T wave inversion no longer evident in Inferior leads Nonspecific T wave abnormality no longer evident in Lateral leads Confirmed by - EMERGENCY ROOM, PHYSICIAN ([id number]), department editor LOCO WINTER ([id number]) on 02/26/2024 2:02:07 PM RADIOLOGY RESULTS 02/26/2024 [...] DO LAB - BLOOD ORDERABL ES LABORATORY [facility] Lab [address] Lab (1st floor, no room number) [place] [address], [facility] [phone] * CT Chest w/o Contrast (07/13/2023 5:44 [...] CDT EXAM: CT CHEST W/O CONTRAST LOCATION: [facility] DATE: 07/13/2023 INDICATION: Worsening respiratory status; [...] suction tube tip terminates inferiorly beyond the qmkhe-xi-oxhk within the gastric body. MUSCULOSKELETAL: No suspicious abnormality. OTHER: No additionally suspicious abnormality. Procedure Note Fernando Quiñonez MD - 07/13/2023 EXAM: CT CHEST W/O CONTRAST LOCATION: [facility] DATE: 07/13/2023 INDICATION: Worsening respiratory status; [...] Enteric suction tube tip terminatesinferiorly beyond the rhogf-nc-dyax within the gastric body. MUSCULOSKELETAL: No suspicious [...] reactive. 5. Hepatic steatosis. Bay Perez MD [facility] [place] ORDER [place] * (ABNORMAL) Hemoglobin A1c (07/12/2023 5:24 AM CDT) Hemoglobin A1C 5.9(H) <5.7 % 07/12/2023 2:34 PM CDT LABORATORY Comment: Normal <5.7% Prediabetes 5.7-6.4% ?? Diabetes 6.5% or higher Note: Adopted from ADA consensus guidelines. Blood ARTERIAL LINE / Unknown Arterial Line / Unknown 07/12/2023 5:24 AM CDT 07/12/2023 5:33 AM CDT Bay Perez MD LAB - BLOOD ORDERABLES LABORATORY [facility] [address] [facility] (1st floor, no room number) [place] [address] [phone] * PULMONARY FUNCTION TEST (06/13/2012 6:15 PM [...] MT: Name: JAN HUDDLESTON MRN: [id number] Account: [id number] : 1960 Procedure Date: 05/06/2012 Document: [id number] Virginia Orona MD PFT ORDERABLES from Last 3 Months or Most Recently Relevant to Health Maintenance Advance Directives For more information, please contact: [phone] * Full Code (Latest Code Status on [...] 10:12 AM 07/05/2023 8:06 AM Care Teams Family Service Worker Relationship Specialty Start Date End Date [facility], [facility] [address] [place] [address] PCP - General 03/28/17
--- OUTSIDE RECORDS SUMMARY | 2024-03-09 08:52 | XMS_ITS ---
Author Name Unknown Organization [place] Address [address] [place] [address] Care Team Providers Care Cable Tv Installer Name Role Phone Clinic, [facility] Primary Care Provider Transitional Care Management Status:Enrolled (Active) Start date:03/04/2024 Enrollment date:03/04/2024 Continued Care and Services Coordination
--- OUTSIDE RECORDS SUMMARY | 2024-03-09 08:52 | XMS_ITS | Clinical Summary ---
Author Name Unknown Organization [facility] Address [address] [place] [address] Care Team Providers Care Book Jogger Name Role Phone Doctor, No Primary Care [...] age to complete this topic Care Teams Book Jogger Relationship Specialty Start Date End Date Doctor, No No ad PCP - General Radiology 11/01/21 Clinic, No Primary PCP - Primary Care Clinic 11/01/21
--- OUTSIDE RECORDS SUMMARY | 2024-03-09 08:52 | XMS_ITS | Encounter Summary ---
Author Name Unknown Organization [place] Address [address] [place] [address] Care Team Providers Care Spool Hauler Name Role Phone [facility] Primary Care Provider Encounter Details Date Type [...] documented as of this encounter Care Teams Spool Hauler Relationship Specialty Start Date End Date [facility] [address] [place] [address] PCP - General 03/28/17 documented as of this encounter
--- OUTSIDE RECORDS SUMMARY | 2024-03-09 08:52 | XMS_ITS | Referral Summary ---
Author Name Unknown Organization [facility] Address [address] [place] [address] Care Team Providers Care Vice President Digital Strategist Name Role Phone Doctor, No Primary Care Provider Unavailabl e Clinic, No Primary Unavailable Unavailable Social History Tobacco Use Types Packs/Day Years Used Date Smoking Tobacco: Never Assessed Sex and Gender Information Value Date Recorded Sex Assigned at Not on file Gender Identity Not on file Sexual Orientation Not on file Plan of Treatment Not on file Care Teams Vice President Digital Strategist Relationship Specialty Start Date End Date Doctor, No No ad PCP - General Radiology 11/01/21 Clinic, No Primary PCP - Primary Care Clinic 11/01/21
--- OUTSIDE RECORDS SUMMARY | 2024-03-09 08:52 | XMS_ITS | Encounter Summary ---
Author Name Unknown Organization [place] Address [facility] [place] [address] Care Team Providers Care Retail Sales Advisor Name Role Phone Clinic, [facility] Primary Care Provider Reason for Referral * Consultation (Routine: Next available opening) - Pending Review Specialty Diagnoses / Procedures Referred By Lenore t Referred To Contact Pulmonary Disease Diagnoses COPD with acute exacerbation (H) Kaylene Sawant MD [address] [place] [address] Referral ID Status Reason Start Date Expiration Date V isits Requested Visits Authorized [id number] Pending Review 03/03/2024 03/03/2025 1 1 Question Answer Reason for Referral: Other My Clinical Question Is: concerns for underlying obesity hypoventilation syndrome and sleep apnea, may benefit from BiPAP Scheduling Instructions: [facility] will call you to coordinate your care as prescribed by the provider. If you don? t hear from a community representative within 2 business days, please call . Comments Please be aware that coverage of these services is subject to the terms and limitations of your health insurance plan. Call member services at your health plan with any benefit or coverage questions. [facility] will call you to coordinate your care as prescribed by the provider. If you don? t hear from a community representative within 2 business days, please call . Reason for Visit * Reason Comments Shortness of Breath * Auth/Cert (Routine) Specialty Diagnoses / Procedures Referred By Contac t Referred To Contact Med Surg Diagnoses Hypoxia COPD with acute exacerbation (H) Dyspnea, unspecified type Dyspnea, unspecified type Hypoxia COPD with acute exacerbation (H) 5 Medical Surgical [address] [place] [address] Referral ID Status Reason Start Date Expiration Date Visits Re quested Visits Authorized [id number] 1 1 Encounter Details Date Type Department Care Team (Late st Contact Info) Description 02/26/2024 1:00 PM CDT - 03/03/2024 1:55 PM CDT Hospital Encounter [facility] 5 Medical Surgical [address] [place] [address] Howard Rankin MD [facility] [address] [place] [address] Gary Mora MD [facility] [address] [facility] [address] [phone] Janee Stiles MD [address] [place] [address] Diuretic-induced hypokalemia (Primary Dx); Dyspnea, [...] Sawant MD - 03/03/2024 1:[address] [facility] Hospitalist Discharge Summary Date of Admission: [...] tests Follow up with primary care provider, [facility], within 7 days for hospital follow- up. [...] history of alcohol dependence who presented to [facility] on 02/26/2024 with 2-3-day history of progressive [...] progressive shortness of breath. 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 Kaylene Sawant MD [address] SURGICAL [address] [facility] [address] Physical Exam Vital Signs: Temp: 98 ??F [...] Appropriate mood and affect. Primary Care Physician [facility] Discharge Orders Adult Pulmonary Medicine Deck Cadet Referral Reason for your hospital stay COPD exacerbation Follow-up and recommended labs and tests Follow up with primary care provider, [facility], within 7 days for hospital follow- up. [...] 0 liters/minute during activity/with exercise. * Kaylene Sawnat MD - 03/02/2024 1:[address] [facility] Medicine Progress Note - Hospitalist Service [...] history of alcohol dependence who presented to [facility] on 02/26/2024 with 2-3-day history of progressive [...] progressive shortness of breath. 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 Interval History Nursing notes reviewed. He [...] the past 24 hours is available in [facility] and has been personally reviewed. Recent Labs [...] history of alcohol dependence who presented to [facility] on 02/26/2024 with 2-3-day history of progressive [...] Evaluation Time PT Eval, Low Complexity Minutes ([id number]) 15 PT Discharge Planning PT Plan Eval [...] Sawant MD - 03/01/2024 11:34 AM CDT [facility] Medicine Progress Note - Hospitalist Service [...] history of alcohol dependence who presented to [facility] on 02/26/2024 with 2-3-day history of progressive [...] progressive shortness of breath. 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 [facility] Hospitalist Service [facility] Interval History Nursing notes reviewed. Patient [...] Sawant MD - 02/29/2024 2:25 PM CDT [facility] Medicine Progress Note - Hospitalist Service [...] history of alcohol dependence who presented to [facility] on 02/26/2024 with 2-3-day history of progressive [...] progressive shortness of breath. 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 Kaylene Sawant Hospitalist Service [facility] Interval History Nursing notes reviewed. Patient [...] the past 24 hours is available in [facility] and has been personally reviewed. Recent Labs [...] Smiley RT - 02/29/2024 1:11 AM CDT [facility] Date: 02/29/24 Admission Dx: Hypoxia Pulmonary [...] Sawant MD - 02/28/2024 7:[address] [facility] Medicine Progress Note - Hospitalist Service [...] history of alcohol dependence who presented to [facility] on 02/26/2024 with 2-3-day history of progressive [...] progressive shortness of breath. He presented to [facility] on 02/26/2024 as been requiring 3-4 L [...] continue CPAP but could consider evaluation with commercial attache as outpatient and help determining whether BiPAP [...] that this is likely secondary to continued/chronic [id number]. 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 Kaylene Sawant Hospitalist Service [facility] Interval History Nursing notes reviewed. Patient [...] Castro MD - 02/27/2024 3:[address] [facility] Medicine Progress Note - Hospitalist Service [...] history of alcohol dependence who presented to [facility] on 02/26/2024 with 2-3-day history of progressive [...] progressive shortness of breath. He presented to [facility] on 02/26/2024 as been requiring 3-4 L [...] continue CPAP but could consider evaluation with commercial attache as outpatient and help determining whether BiPAP [...] that this is likely secondary to continued/chronic [id number]. 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 Marvin Castro MD, S Hospitalist Service [facility] Interval History Nursing notes reviewed. Patient [...] the past 24 hours is available in [facility] and has been personally reviewed. Recent Labs [...] Ace RT - 02/26/2024 5:34 PM CDT [facility] Date: 02/26/2024 Admission Dx: Hypoxia Pulmonary [...] Stiles MD - 02/26/2024 3:[address] [facility] History and Physical Hospitalist Date of [...] days. Janee Stiles MD Primary Care Physician [facility] Chief Complaint Shortness of breath, Chest pain [...] Myocardial Infarction Father at age 52 from [place] per sister Gloria Review of Systems The [...] Keller RN - 02/26/2024 3:[address] [facility] ED Nurse Handoff Report ED Chief complaint: Shortness of Breath . ED Diagnosis: Final diagnoses: Dyspnea, unspecified type Hypoxia COPD with acute exacerbation (H) Allergies: Allergies Allergen Reactions Ancef [Cefazolin] Rash Code Status: Full Code Activity level - Baseline/Home: independent. Activity Level - Current: assist of 1. Lift room needed: No. Bariatric: Yes Police Or Patrol Park Officer Needed: No Isolation: No. Infection: Not Applicable. [...] Pressure Ventricular Rate 98 Atrial Rate 98 MS Interval 146 QRS Duration 86 QT 340 QTc 434 P Baden 61 R AXIS 69 T Baden 48 Interpretation ECG Sinus rhythm Normal ECG [...] admission and patient isin agreement with plan. [address] Jimenez of the hospitalist team regarding the patient, who accepted the patient foradmission. Social Determinants of Health affecting care: None Disposition: The patient was admitted to the hospital under the care of Dr. Stiles. Impression & Plan [facility] Diagnoses: None Medical Decision Making: Maury Huddleston [...] and complete assessments, please see documentation flowsheets. [id number] Pertinent assessments: Pt A&Ox4. Ax1 in room. [...] and complete assessments, please see documentation flowsheets. [id number] Pertinent assessments: Pt A&Ox4. Ax1 in room. [...] Impaired Goal: Optimal Gas Exchange 03/01/20242315 by Carin Godfrey RN Outcome: Progressing [...] and complete assessments, please see documentation flowsheets. [id number] Pertinent assessments: Pt A&Ox4. Ax1 in room. [...] wean O2 as able, Duonebs, CPAP at [facility]. Bedside Nurse: Nini Keller RN Problem: Skin [...] by Nini Keller RN Outcome: Progressing Intervention: Optimize Oxygenation [...] BiPAP 45 FiO2 at night while resting [id number]. LS with exp wheezing. Denied pain. BLE [...] unit. Treatment Plan: Duonebs,monitor O2, CPAP at [facility]. Bedside Nurse: Nini Keller RN Overall Patient Progress: no changeOverall Patient Progress: no change Outcome Evaluation: Pt came up to the unit and put on 5L NC on CPAP at [facility]. Problem: Adult Inpatient Plan of Care Goal: [...] put on 5L NC on CPAP at [facility]. Overall Patient Progress: no change Goal: Patient-Specific [...] takes 1 puff daily. Changes made to [employer] COMMUNICATIONS ENGINEER medication list: Added: Tylenol Deleted: torsemide 20 mg daily; quetiapine 12.5 mg HS PRN Changed: tiotropium 2 puffs -> 1 puff Allergies reviewed with patient and updates made in EHR: yes Medication History Completed By: Joel Bauman RPH 02/26/2024 6:50 PM [employer] UN[employer]IED COMMUNICATIONS ENGINEER Med List Medication Sig Last Dose acetaminophen [...] Diagnoses Orde r Schedule Adult Pulmonary Medicine Deck Cadet Referral Referral Routine: Next available opening COPD [...] Basic metabolic panel (03/03/2024 9:21 AM CDT) [facility] Signature Sodium 139 135 - 145 mmol/L [...] MD LAB - BLOOD ORDERABL ES LABORATORY [facility] Acute Care Lab [address] [facility] Lab (1st floor, no room number) [place] [address], [facility] * (ABNORMAL) CBC with platelets [...] LAB - BLOOD ORDERABL ES RH LABORATORY [facility] Acute Care Lab [address] [facility] Lab (1st floor, no room number) [place] [address], [facility] * (ABNORMAL) CBC with platelets (03/02/2024 9:52 [...] MD LAB - BLOOD ORDERABL ES LABORATORY [facility] Acute Care Lab [address] [facility] Lab (1st floor, no room number) [place] [address] * (ABNORMAL) Basic metabolic panel (03/02/2024 9:52 [...] LAB - BLOOD ORDERABL ES RH LABORATORY [facility] Acute Care Lab [address] [facility] Lab (1st floor, no room number) [place] [address], [facility] * D dimer quantitative (03/01/2024 10:10 [...] out pulmonary embolism: The ADJUST-PE Study. CAN 2014;311:0187-1488.; HJ Herve et al. Diagnostic accuracy of conventional or age adjusted D-dimer cutoff values in older patients with suspected venous thromboembolism. Systemic review and meta-analysis. BMJ 2013:346:f2492. Kaylene Sawant MD LAB - BLOOD ORDERABL ES RH LABORATORY [facility] Acute Care Lab [address] [facility] Lab (1st floor, no room number) [place] [address] * (ABNORMAL) Basic metabolic panel (03/01/2024 8:06 AM CDT) [facility] Signature Sodium 141 135 - 145 mmol/L [...] MD LAB - BLOOD ORDERABL ES LABORATORY [facility] Acute Care Lab [address] Lab (1st floor, no room number) [place] [address], [facility] * (ABNORMAL) Basic metabolic panel (02/29/2024 7:29 [...] LAB - BLOOD ORDERABL ES RH LABORATORY [facility] Acute Care Lab [address] Lab (1st floor, no room number) [place] [address] * (ABNORMAL) CBC with platelets (02/29/2024 7:29 [...] MD LAB - BLOOD ORDERABL ES LABORATORY [facility] Acute Care Lab [address] Lab (1st floor, no room number) [place] [address] * (ABNORMAL) CBC with platelets (02/27/2024 6:25 [...] MD LAB - BLOOD OR DERABLES LABORATORY [facility] Acute Care Lab [address] Lab (1st floor, no room number) [place] [address] * (ABNORMAL) Basic metabolic panel (02/27/2024 6:25 [...] LAB - BLOOD OR DERABLES RH LABORATORY [facility] Acute Care Lab [address] Lab (1st floor, no room number) [place] [address], [facility] * XR Chest 2 Views [...] the Xpert Xpress CoV2/Flu/RSV Assay on the [employer] GeneXpert Instrument. This test should be ordered [...] management. This test was validated by the [facility]. These laboratories are certified under the Clinical Laboratory Improvement Amendments of 1988 (CLIA-88) as qualified to perform high complexity laboratory testing. Howard Rankin MD LAB - MICRO GENERAL ORDERABLES LABORATORY [facility] Acute Care Lab [address] Lab (1st floor, no room number) [place] [phone] * Extra Heparinized Syringe (02/26/2024 1:17 PM CDT) Hold Specimen [facility] 02/26/2024 2:31 PM CDT RH LABORATORY Blood, venous VENOUS LINE / Unknown Venipuncture / Unknown 02/26/2024 1:17 PM CDT 02/26/2024 1:22 PM CDT Howard Rankin MD LAB - BLOOD ORDERABL ES [facility] [address] Lab (1st floor, no room number) [place] [phone] [place] [address] * Extra Red Top Tube (02/26/2024 1:17 PM CDT) [facility] Signature Hold Specimen [facility] 02/26/2024 2:31 PM CDT RH LABORATORY Blood VENOUS LINE / Unknown Venipuncture / Unknown 02/26/2024 1:17 PM CDT 02/26/2024 1:23 PM CDT Howard Rankin MD LAB - BLOOD ORDERABL ES [facility] Acute Care Lab [address] Lab (1st floor, no room number) [place] [phone] [place] [address] * (ABNORMAL) CBC with platelets and differential [...] Rankin MD LAB - BLOOD ORDERABL ES [facility] Acute Care Lab [address] Lab (1st floor, no room number) [place] [phone] * Lipase (02/26/2024 1:17 PM CDT) Lipase 13 13 - 60 U/L 02/26/2024 1:48 PM CDT LABORATORY Blood VENOUS LINE / Unknown Venipuncture / Unknown 02/26/2024 1:17 PM CDT 02/26/2024 1:23 PM CDT Howard Rankin MD LAB - BLOOD ORDERABL ES Performing Organization Address [facility]/ZIP Co de Phone Number [facility] [address] Lab (1st floor, no room number) [place] [phone] [place] [address] * Nt probnp inpatient (BNP) (02/26/2024 1:17 [...] - BLOOD ORDERABL ES Performing Organization Address [facility]/ZIP Co de Phone Number [facility] Acute Care Lab [address] Lab (1st floor, no room number) [place] [address] * Troponin T, High Sensitivity [...] - BLOOD ORDERABL ES Performing Organization Address [facility] Co de Phone Number [facility] Acute Care Lab [address] Lab (1st floor, no room number) [place] [address], [facility] * (ABNORMAL) Comprehensive metabolic panel (02/26/2024 [...] LAB - BLOOD ORDERABL ES RH LABORATORY [facility] Acute Care Lab [address] Lab (1st floor, no room number) [place] [address] * EKG 12-lead, tracing only (02/26/2024 1:15 PM CDT) Systolic Blood Pressure mmHg RADIOLOGY RESULTS Diastolic Blood Pressure mmHg RADIOLOGY RESULTS Ventricular Rate 98 BPM RAD IOLOGY RESULTS Atrial Rate 98 BPM RADIOLOG Y RESULTS MS Interval 146 ms RADIOLOG Y RESULTS QRS Duration 86 ms RADIOLO GY RESULTS QT 340 ms RADIOLOGY RESULTS QTc 434 ms RADIOLOGY RESULTS P Baden 61 degrees RADIOLOGY RESULTS R AXIS 69 degrees RADIOLOGY RESULTS T Baden 48 degrees RADIOLOGY RESULTS Interpretation ECG Sinus rhythm Normal ECG When compared with ECG of 13-JUL-2023 14:46, T wave inversion no longer evident in Inferior leads Nonspecific T wave abnormality no longer evident in Lateral leads Confirmed by - EMERGENCY ROOM, PHYSICIAN ([id number]), science editor LOCO WINTER ([id number]) on 02/26/2024 2:02:07 PM RADIOLOGY RESULTS 02/26/2024 [...] Javier RN) 0836 ($Given - Provider: Jordana Javier RN) enoxaparin ANTICOAGULANT (LOVENOX) injection 40 mg [...] 0811 ($Given - Provider: Jordana Javier RN) 0842 ($Given - Provider: Jordana Javier RN) PRN [...] documented as of this encounter Care Teams Retail Sales Advisor Relationship Specialty Start Date End Date [facility], [place] [phone] PCP - General 03/28/17 documented as of this encounter
--- OUTSIDE RECORDS SUMMARY | 2024-03-09 08:52 | XMS_ITS | Clinical Summary ---
Author Name Unknown Organization [facility] Address [address] [place] [address] Care Team Providers Care Senior Industrial Engineer Name Role Phone Unavailable Primary Care Provider [...] Tube route nightly. 0 12/02/2021 Active Umeclidinium Satartia (INCRUSE ELLIPTA) 62.5 MCG/INH aerosol powder Inhale [...] Comments Blood Pressure 127/81 12/02/2021 8:32 AM WRAPPER LAYER AND EXAMINER SOFT WORK Pulse 86 12/02/2021 8:32 AM WRAPPER LAYER AND EXAMINER SOFT WORK Temperature 36.2 ??C (97.1 ??F) 12/02/2021 8:32 AM CS T Respiratory Rate 18 12/02/2021 8:32 AM WRAPPER LAYER AND EXAMINER SOFT WORK Oxygen Saturation 98% 12/02/2021 8:32 AM WRAPPER LAYER AND EXAMINER SOFT WORK Inhaled Oxygen Concentration - - Weight 156.9 kg (346 lb) 11/30/2021 4:45 AM WRAPPER LAYER AND EXAMINER SOFT WORK Height 182.9 cm (6') 09/19/2021 9:37 PM WRAPPER LAYER AND EXAMINER SOFT WORK Body Mass Index 46.93 09/19/2021 9:37 PM WRAPPER LAYER AND EXAMINER SOFT WORK Plan of Treatment Not on file Advance Directives * Full Resuscitation (Latest Code Status on File) Date Activated Date Inactivated Comments 09/19/2021 10:27 PM 12/02/2021 5:29 PM
--- OUTSIDE RECORDS SUMMARY | 2024-03-09 08:52 | XMS_ITS | Encounter Summary ---
Author Name Unknown Organization [place] Address [facility] [place] [address] Care Team Providers Care Turning Machine Set Up Operator Name Role Phone [facility], [facility] Primary Care Provider Reason for Visit * Reason Onset Date Comments Call Back 08/13/2023 Encounter Details Date Type Department Care Team ([facility] st Contact Info) Description 08/13/2023 [facility] [address] [address] None Call Back Social History [...] Esha Palacios - 08/13/2023 1:36 PM CDT [facility] Phone Message May a detailed [...] documented as of this encounter Care Teams Turning Machine Set Up Operator Relationship Specialty Start Date End Date [facility], [address] [address] PCP - General 03/28/17 documented as of this encounter
[2024-03-18 01:57] LABS: JAK2 Qual Mutation by PCR Not Detected; JAK2 Qual, Source Whole Blood
== END 2024-03-09 08:48 | disposition home or self-care (01) ==
LOC: LKVREF 08:49
PROVIDERS: PCP Family Medicine; Visit Provider Family Medicine
DX: D75.1 Secondary polycythemia (principal)
CPT/HCPCS: 81270

== ENCOUNTER 2025-10-01 22:38 | Outpatient (CLI) | payer MEDICAID, SELFPAY | END 2025-10-01 22:39 | disposition home or self-care (01) | LOC: AMB 10-05 20:08 | PROVIDERS: PCP Family Medicine; Visit Provider Student in an Organized Health Care Education/Training Program | DX: R41.82 Altered mental status, unspecified (principal); R47.81 Slurred speech | CPT/HCPCS: A0425; A0427 ==